=== PATIENT | male | born 1940 | race Caucasian/White ===

== ENCOUNTER → 2017-10-26 | Outpatient (CLI) | payer MEDICARE ==
[~2017-10-26] MED LIST: IOPAMIDOL 370 MG/ML 200 ML INFUS..BTL INJ ONE; SODIUM CHLORIDE 0.9% 250ML 250 ML ONE
[2017-10-26 09:34] LABS: BLOOD UREA NITROGEN 15 mg/dL (7-26); BUN/CREATININE RATIO 16 (6-25); CREATININE, SERUM 0.91 mg/dL (0.72-1.25); EST GLOMERULAR FILTRATION RATE > 60 ML/MIN (60-)
--- NOTE | 2017-10-26 13:23 | Diagnostic Imaging Report ---
PROCEDURE: CT ABDOMEN \T\ PELVIS W/WO CONTRAST TECHNIQUE: The abdomen and pelvis were scanned utilizing a multidetector helical scanner from the diaphragm to the lesser trochanter before and after the IV administration of 150 cc of Isovue 370 and the oral administration of water. Coronal and sagittal multiplanar reformations were obtained. COMPARISON: Patients [facility], DX, ABDOMEN-1VIEW (KUB), 05/03/2011, 7:41. Patients [facility], US, US RENAL, 05/03/2011, 8:28. INDICATIONS: Microscopic hematuria FINDINGS: LOWER THORAX: 3 mm pulmonary nodule in the left lower lobe (series 3, image 35). Extensive atherosclerotic calcification of the coronary arteries and to a lesser degree aortic valves and thoracic aorta. HEPATOBILIARY: Normal hepatic size and contour. No focal lesions. No biliary ductal dilation. Peripherally calcified 1.6 and 1.8 cm gallstones in the dependent portion of the bladder fundus. No wall thickening or pericholecystic fluid. SPLEEN: No splenomegaly. PANCREAS: No focal masses or ductal dilatation. ADRENALS: No adrenal nodules. KIDNEYS/URETERS: Bilateral renal vascular calcifications are noted. 0.2-0.3 cm nonobstructing calculus in the superior to mid left kidney (series 3, image 79). No other renal or any ureteral calculi. No hydronephrosis or obstruction. Symmetrical renal enhancement. Subcentimeter hypodense lesions in the left kidney (for example series 6, images 76 and 79), which are too small to characterize. The largest lesion measures approximately 4-5 mm and is hyperdense on noncontrast exam, suggesting a small hemorrhagic cyst (series 3, image 81). There is good contrast opacification of bilateral renal collecting systems, renal pelves, proximal and mid right ureter and proximal, mid, and most distal left ureter. No filling defects or strictures. Mild urothelial thickening in the midportion of the left ureter (for example series 6, images 99-105). No focal lesion or ureteral dilation is identified. No solid enhancing masses. PELVIC ORGANS/BLADDER: Bladder is unremarkable, without wall thickening, or focal lesions. Multiple pelvic phleboliths. Multiple metallic clips posterior to the inferior bladder, which may reflect prior prostatectomy. PERITONEUM / RETROPERITONEUM: No free air or fluid. LYMPH NODES: No lymphadenopathy. VESSELS: Moderate to marked atherosclerotic calcification of the abdominal aorta, iliac vessels and aortic branches. The celiac trunk, superior and inferior mesenteric, and bilateral renal arteries are patent. Portal, superior mesenteric, and splenic veins are patent. GI TRACT: No bowel dilation or evidence of obstruction. Appendix is identified, and normal in caliber. Descending and sigmoid colon diverticulosis, without diverticulitis. BONES AND SOFT TISSUES: No aggressive lytic lesions. Degenerative disc changes in the lower thoracic and lumbosacral spine. Facet hypertrophy. L5-S1 and left L4-L5. 1.6 x 1.3 cm and 0.3 cm focal sclerotic lesions in the right iliac bone (series 3, images 141 and 149-150). 1.0 cm focal sclerotic lesion in the right femoral head (series 3, image 166). 0.5 cm focal sclerotic lesion in the right acetabulum (series 3, image 155). 0.4 cm focal sclerotic lesion in the left iliac bone (series 3, image 152). These lesions have nonaggressive appearance. IMPRESSION: 1. 0.2-0.3 cm nonobstructing calculus in the superior to mid left kidney. No other renal or any ureteral calculi, hydronephrosis, or obstruction. 2. Mild urothelial thickening in the midportion of the left ureter, without focal lesion or ureteral dilation. The rest of the opacified portions of the genitourinary tract are unremarkable. Direct visualization with endoscopy would be helpful for further evaluation. 3. Multiple focal sclerotic lesions in the pelvis and right femur, as described. 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 Musa Marshall M.D. Dictated by: Musa Marshall M.D. on 10/26/2017 at 13:28 Electronically approved by: Musa Marshall M.D. on 10/26/2017 at 13:28
== END ==
LOC: CT 08:57
PROVIDERS: ATTEND Urology
DX: R31.21 Asymptomatic microscopic hematuria (principal)
CPT/HCPCS: 36415; 74178; 82565; 84520; J7050; Q9967

== ENCOUNTER → 2017-11-29 | Day surgery (SDC) | payer MEDICARE ==
[2017-11-27 11:28] LABS: BASOPHILS # (AUTO) 0.1 (0.0-0.1); BASOPHILS % 1.2 % (0.0-1.0); EOSINOPHILS # (AUTO) 0.2 (0.0-0.4); EOSINOPHILS % 3.3 % (0.0-6.0); HEMATOCRIT 43.8 % (38.2-49.6); HEMOGLOBIN 15.2 g/dL (14.0-18.0); LYMPHOCYTES # (AUTO) 1.8 (1.0-3.2); LYMPHOCYTES % 25.1 % (18.0-39.1); MEAN CORPUSCULAR HEMOGLOBIN 31.4 pg (28-32); MEAN CORPUSCULAR HGB CONC 34.7 g/dL (31-35); MEAN CORPUSCULAR VOLUME 90.5 fL (81-99); MONOCYTES # (AUTO) 0.7 (0.2-0.8); MONOCYTES % 8.9 % (4.4-11.3); NEUTROPHILS # (AUTO) 4.5 (2.1-6.9); NEUTROPHILS % 61.2 % (38.7-80.0); PLATELET COUNT 189 x10e3/uL (140-360); RED BLOOD COUNT 4.84 x10e6/uL (4.3-5.7); RED CELL DISTRIBUTION WIDTH 11.8 % (11.7-14.4)
[2017-11-27 11:42] LABS: ANION GAP 14.5 mmol/L (8-16); BLOOD UREA NITROGEN 15 mg/dL (7-26); BUN/CREATININE RATIO 14 (6-25); CALCIUM 10.2 mg/dL (8.4-10.2); CARBON DIOXIDE 30 mmol/L (22-29); CHLORIDE 100 mmol/L (98-107); EST GLOMERULAR FILTRATION RATE > 60 ML/MIN (60-); GLUCOSE 257 mg/dL (74-118); POTASSIUM 4.5 mmol/L (3.5-5.1); SODIUM 140 mmol/L (136-145)
--- NOTE | 2017-11-27 11:46 | Diagnostic Imaging Report ---
EXAMINATION: PA and lateral views of the chest. COMPARISON: None CLINICAL HISTORY: Preop bladder surgery DISCUSSION: The lungs are well-inflated. No focal airspace consolidation, pleural effusion, or pneumothorax. Postsurgical changes of the mediastinum include mediastinal surgical clips and median sternotomy wires. Tortuous thoracic aorta with atherosclerotic calcification. Normal heart size. No overt pulmonary edema. No acute osseous abnormalities. Multilevel level degenerative disc changes of the thoracic spine. Round lucent centered calcifications project over the upper abdomen on the lateral radiograph and likely reflect gallstones. IMPRESSION: Postsurgical changes of the mediastinum without acute cardiopulmonary abnormality.. Signed by: Dr. Kwaku Greer M.D. on 11/27/2017 11:43 AM
[~2017-11-29] MED LIST changes: +AMLODIPINE BESY10 MG PO; +CALCIUM; +CEFTRIAXONE SOD 1 GM VIAL ONE; +CENTRUM SILVER1 EAC3; +DEXAMETHASONE SOD PHOS INJ 4 MG/ML VIAL ONE; +DIOVAN HCT 3201 EACH; +FISH OIL 1,2001 EACH; +IOPAMIDOL 300MG/ML 50ML INFUS..BTL IV ONE; -IOPAMIDOL 370 MG/ML 200 ML INFUS..BTL INJ ONE; +LEVOTHYROXINE50 MCG PO; +LIDOCAINE HCL 2% LOCAL INJ 5 ML SDV VIAL INJ ONE; +MAGNESIUM; +METFORMIN HCL500 M2 PO; +ONDANSETRON HCL INJ 2 MG/ML VIAL ONE; +PRAVASTATIN SOD10 MG; +PROPOFOL IV EMULSION 10 MG/ML 20 ML VIAL ONE; +SEVOFLURANE INHAL SOLN 250 ML PEN BTL ONE; -SODIUM CHLORIDE 0.9% 250ML 250 ML ONE; +STOOL SOFTENER50 MG; +WARFARIN SODIUM4 MG
[2017-11-29 09:12] LABS: INR 1.08; PROTHROMBIN TIME 13.2 seconds (11.9-14.5)
[2017-11-29 09:13] LABS: PARTIAL THROMBOPLASTIN TIME 35.2 seconds (23.8-35.5)
[2017-11-29 12:35] VITALS: BP 157/89
--- OUTSIDE RECORDS SUMMARY | 2017-12-21 07:24 | XMS REPORT | Summary of Care ---
Author Author [facility] Organization 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, 3, 4 Diabetes Active mellitus(Confirmed) Diabetes(Confirmed) Resolved Hearing loss5 12/26/12 Active Hyperlipidemia6 12/26/12 Active BP (high blood Resolved pressure)(Confirmed) 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 2Data migrated from [employer] on 09/24/14. 3Data migrated from [employer] on 08/19/14. 4Data migrated from [employer] on 08/16/14. 5Data migrated from [employer] on 08/16/14. 6Data migrated from [employer] on 08/16/14. 7Data migrated from [employer] on 08/16/14. 8Data migrated from [employer] on 08/16/14. 9Data migrated from [employer] on 08/16/14. 10Data migrated from [employer] on 08/16/14. 11Data migrated from [employer] on 08/16/14. 12Data migrated from [employer] on 08/16/14. 13Data migrated from [employer] on 08/16/14. 14Data migrated from [employer] on 08/16/14. Allergies, Adverse Reactions, Alerts Substance Reaction Severity Status NKDA Active Medications pravastatin 10 mg oral tablet See Instructions, # 90 tab, Refill(s) 5, TAKE 1 TABLET BY MOUTH EVERY DAY, Pharmacy: [facility] [id number] Start Date: 07/03/17 Status: Ordered Results No data available for this section Immunizations Given and Recorded Vaccine Date Status Refusal Reason pneumococcal 23-valent vaccine 05/13/15 Given Procedures Procedure Date Related Diagnosis Body Site Status Endoscopic prostatectomy Completed Functional endoscopic sinus surgery - Completed anterior ethmoidectomy and frontal recess dissection Hemorrhoidectomy Completed Tonsillectomy Completed Triple coronary bypass Completed Social History Social History Type Response Smoking Status Former smoker; Type: Cigarettes; Previous treatment: None; Ready to change: No; Concerns about tobacco use in household: No; Exposure to Tobacco Smoke None; Cigarette Smoking Last 365 Days No; Reg Smoking Cessation Counseling No; Tobacco use per day: 1; Number of years: 30; Total pack years: 150; Started at age: 10.0; Stopped at age: 44; entered on: 06/28/17 Assessment and Plan No data available for this section
--- OUTSIDE RECORDS SUMMARY | 2017-12-21 07:24 | XMS REPORT | Summary of Care ---
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) CABG x 3 - Coronary Active artery bypass grafts x 3(Confirmed) Cancer of Active prostate(Confirmed) Coronary 12/26/12 Active 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 [...] Substance Reaction Severity Status NKDA Active Medications No data available for this section Results No data available for this section Immunizations Given and Recorded Vaccine Date Status Refusal Reason pneumococcal 23-valent vaccine 05/13/15 Given Procedures Procedure Date Related Diagnosis Body Site Endoscopic prostatectomy Functional endoscopic sinus surgery - anterior ethmoidectomy and frontal recess dissection Hemorrhoidectomy Tonsillectomy Triple coronary bypass Social History Social History Type Response Smoking Status Former smoker; Type: Cigarettes; Tobacco use per day: 1; Number of years: 30; Total pack years: 150; Started at age: 10.0; Stopped at age: 44; Previous treatment: None; Ready to change: No; Concerns about tobacco use in household: No; Exposure to Tobacco Smoke None; Cigarette Smoking Last 365 Days No; Reg Smoking Cessation Counseling No Assessment and Plan No data available for this section
--- OUTSIDE RECORDS SUMMARY | 2017-12-21 07:24 | XMS REPORT | Summary of Care ---
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 [...] No data available for this section Immunizations Vaccine Date Refusal Reason pneumococcal 23-valent vaccine 05/13/15 Procedures Procedure Date Related Diagnosis Body Site Endoscopic prostatectomy Functional endoscopic sinus surgery - anterior ethmoidectomy and frontal recess dissection Hemorrhoidectomy Tonsillectomy Triple coronary bypass Social History Social History Type Response Smoking Status Former smoker; Exposure to Tobacco Smoke None; Cigarette Smoking Last 365 Days No; Reg Smoking Cessation Counseling No Assessment and Plan No data available for this section
--- OUTSIDE RECORDS SUMMARY | 2017-12-21 07:24 | XMS REPORT | Summary of Care ---
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 [...] Alerts Substance Reaction Severity Status NKDA Active NKDA1 Active 1Data migrated from [employer] on 05/22/15. Originally documented as NKA. Medications No data available for this section [...]
--- OUTSIDE RECORDS SUMMARY | 2017-12-21 07:24 | XMS REPORT | Continuity of Care Document ---
Author Author Interface Organization Interface Address Unknown Phone Unavailable Problems Problem Status Onset Date Classification Date Reported Comments Source Bilateral inguinal hernia 07/01/2017 [facility] Diverticulosis 06/28/2017 07/01/2017 [facility] ABDOMINAL PAIN Active 2017 [facility] DX: M48.54XA=COLLAPSED VERTEBRA, NOT ELS Active 05/19/2016 [facility] Discharge Diagnosis: Acute constipation 05/05/201605/09 [facility] Discharge Diagnosis: Compression fracture of T12 vertebra 05/05/2016 05/09/2016 [facility] Discharge Diagnosis: Hypertension 05/05/2016 05/09/2016 [facility] CONSTIPATION Active 2016 [facility] M81.8 - OTHER OSTEOPOROSIS WITHOUT CUR Active 05/22/2015 CATHY [facility] 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 [facility], CATHY Allen, OPID [place] Urinary incontinence<sup>13</sup> Active 10/22/2013 Problem 09/15/2017 Data migrated from [employer] on . [facility], CATHY [place], [place] Coronary arteriosclerosis<sup>1</sup> Active 12/26/2012 Problem 09/15/2017 Data migrated from [employer] on . [facility], CATHY [place], [place] Hearing loss<sup>5</sup> Active 12/26/2012 Problem 2017 Data migrated from [employer] on 08/16/14. [facility], CATHY [place], [place] Hyperlipidemia<sup>6</sup> Active 12/26/2012 Problem 09/15 Data migrated from [employer] on 08/16/14. [facility], CATHY Allen, OPID [place] Hypertensive heart disease without congestive heart failure<sup>7</sup> Active 12/26/2012 Problem 09/15/2017 Data migrated from [employer] on 08/16/14. [facility], [facility] [place], OP[facility] [place] Hypogonadism<sup>8</sup> Active 12/26/2012 Problem 2017 Data migrated from [employer] on 08/16/14. [facility], [facility] [place], [facility] [place] Hypothyroidism<sup>9</sup> Active 12/26/2012 Problem 09/15 Data migrated from [employer] on 08/16/14. [facility], [facility] [place], OPID [place] Osteoporosis<sup>10</sup> Active 12/26/2012 Problem 2017 Data migrated from [employer] on 08/16/14. [facility], OP[facility] [place], OPID [place] Smoker<sup>12</sup> Active Problem 09/15/2017 Data migrated from [employer] on 08/16/14. [facility], [facility] [place], [facility] [place] Warfarin therapy started<sup>14</sup> Active 12/26/2012 Problem 09/15/2017 Data migrated from [employer] on . 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 Problem 09/15/2017 [facility], [facility] [place], [facility] [place] CABG x 3 - Coronary artery bypass grafts x 3 Active Problem 09/15/2017 [facility], [facility] [place], [facility] [place] Cancer of prostate Active Problem 09/15/2017 [facility], [facility] [place], [facility] [place] Diabetes mellitus Active Problem 09/15/2017 [facility], [facility] [place], [facility] [place] Diabetes Resolved Problem 09/15/2017 [facility] BP (<span ID="[id number]">Confirmed</span>) Resolved Problem 09/15/2017 [facility] Cancer Resolved Problem 09/15/2017 [facility] Obesity Active Problem 09/15/2017 [facility], MATIASRay [place], CATHY [place] Peripheral circulatory disorder associated with type 2 diabetes mellitus<sup>11 </sup> Active Problem 09/15/2017 Data migrated from [facility] on 08/16/14. [facility], CATHY [place], CATHY [place] COLLAPSED VERTEBRA, NEC, THORACIC REGION Active [facility] Medications Medication Details Route Status Patient Instructions Ordering Provider Order Date Source pravastatin 10 mg oral tablet See Instructions, # 90 tab, Refill(s) 5, TAKE 1 TABLET BY MOUTH EVERY DAY, Pharmacy: [facility] [id number] Active 07/03/2017 [facility] Saline Flush 0.9% 10 mL, Route: IVP, Drug Form: INJ, Dosing Weight 81.818, kg, PRN, PRN Line Flush, Start date: 06/28/17 12:33:00 CDT , Duration: 30 day, Stop date: 07/28/17 12:32:00 CDTNotes: (Same as: BD Posiflush) Inactive 06/28/2017 [facility] Accu-Chek Aide Plus Blood Glucose Test Strips 1 ea, MISC, TID, Use for blood glucose monitoring., # 100 ea, Not insulin dependent, Does not use insulin pump, Last DM eval date 06/28/17, 11 Refill(s) Active 06/28/2017 [facility] Lactulose 667 MG/ML Oral Solution 10 gm=15 mL, PO, Daily, PRN constipation, X 5 day, # 75 mL, 0 Refill(s) Active 05/06/2016 [facility] POLYETHYLENE GLYCOL 3350 142 MG/ML Oral Solution [Miralax] 17 gm, PO, Bedtime, PRN Constipation, Dissolve in 8 oz. of water, X 10 day , # 255 gm, 1 Refill(s) Active 05/06/2016 [facility] POLYETHYLENE GLYCOL 3350 142 MG/ML Oral Solution [Miralax] 17 gm, PO, Bedtime, Dissolve in 8 oz. of water, X 7 day, # 1 ea, 1 Refill( s), Pharmacy: [facility] [id number] Active 05/06/2016 [facility] Allergies, Adverse Reactions, Alerts Substance Category Reaction Severity Reaction type Status Date Reported Comments Source Immunizations Immunization Date Given Site Status Last Updated Comments Source diphtheria/pertussis, acel/tetanus adult<sup>1</sup> 09/12/2017 Left deltoid completed [facility] Result Comment : PATIENT WAITED 15 MINUTES AND HAD NO REACTION. [facility] pneumococcal 23-valent vaccine 05/13/2015 Left Deltoid completed [place], CATHY [place], CATHY [place] Results Order Name Results Value Reference Range Date Interpretation Comments Source Bone Density [employer] MA Bone Density [employer] MA MALE BONE DENSITY ASSESSMENT: 10/11/2017 CLINICAL DATA: M81.0 Age related osteoporosis. Osteoporosis/M81.0 FINDINGS: Bone density evaluation was performed 10/11/2017 on the right femur neck using a Hologic unit. The BMD average for the exam is 0.763 g/cm2. The T-score is - 1.20 and the Z-score is 0.20. This matches the World Health Organization's criteria for osteopenia and places the patient at a medium risk for fracture. An additional bone density evaluation was performed 10/11/2017 on the left femur neck using a Hologic unit. The BMD average for the exam is 0.718 g/cm2. The T-score is -1.60 and the Z-score is -0.10. This matches the World Health Organization's criteria for osteopenia and places the patient at a medium risk for fracture. An additional bone density evaluation was performed 10/11/2017 on the right total femur area using a Hologic unit. The BMD average for the exam is 0.905 g/ cm2. The T-score is -0.80 and the Z-score is 0.10. This matches the World Health Organization's criteria for normal bone density and places the patient within normal limits of fracture risk. An additional bone density evaluation was performed 10/11/2017 on the left total femur area using a Hologic unit. The BMD average for the exam is 0.957 g/ cm2. The T-score is -0.50 and the Z-score is 0.40. This matches the World Health Organization's criteria for normal bone density and places the patient within normal limits of fracture risk. An additional bone density evaluation was performed 10/11/2017 on the AP L1-L4 region of spine using a Hologic unit. The BMD average for the exam is 0.920 g/ cm2. The T-score is -1.60 and the Z-score is -0.40. This matches the World Health Organization's criteria for osteopenia and places the patient at a medium risk for fracture. IMPRESSION: OSTEOPENIA Patient is at medium risk for fracture. This exam was interpreted at [id number] for KAITY Allen 15. Rommel Bolton M.D. cm/penrad:10/11/2017 11:22:32 Silverer(s): Maryann Valiente [facility] 10/11/2017 - - Read by: Kai Beaver MD Dictated Date/time: 10/11/17 11:22 Electronically Signed by: Kai Beaver MD 10/11/17 11 :22 FINAL REPORT [place]Ray [place] URINE AND STOOL UA Sq Epi None Seen 06/28/2017 [facility] URINE AND STOOL UA Urobilinogen <=1.0 mg/dL 0.1 - 1.0 [facility] URINE AND STOOL UA Bacteria Occasional /HPF None Seen /HPF 06/28/2017 [facility] URINE AND STOOL UA Bili Negative *NA* (06/28/17 1:56 PM) Negative 06/28/2017 [facility] URINE AND STOOL UA Ketones Negative mg/dL Negative mg/dL 06/28/2017 [facility] URINE AND STOOL UA Glucose 150 mg/dL Negative mg/dL 01/2018 [facility] URINE AND STOOL UA RBC 5 / HPF 0 - 2 06/28/2017 [facility] URINE AND STOOL UA WBC 1 / HPF 0 - 5 06/28/2017 [facility] URINE AND STOOL UA Leuk Est Negative (06/28/17 1:56 PM) Negative 06/28/2017 [facility] URINE AND STOOL UA Nitrite Negative (06/28/17 1:56 PM) Negative 06/28/2017 [facility] URINE AND STOOL UA Blood Small *ABN* (06/28/17 1:56 PM) Negative 06/28/2017 [facility] URINE AND STOOL UA Protein Negative mg/dL Negative mg/dL 06/28/2017 [facility] URINE AND STOOL UA pH 6.0 5.0 - 8.0 06/28/2017 [facility] URINE AND STOOL UA Spec Grav 1.012 <=1.030 06/28/2017 [facility] URINE AND STOOL UA Turbidity Clear (06/28/17 1:56 PM) Clear 01/2018 [facility] URINE AND STOOL UA Color Yellow *NA* (06/28/17 1:56 PM) Yellow [facility] CHEM PANEL eGFR 71 mL/min/ 1.73m2 06/28/2017 Result Comment: The eGFR is calculated using the CKD-EPI formula. In most young, healthy individuals the eGFR will be >90 mL/min/1.73m2. The eGFR declines with age. An eGFR of 60-89 may be normal in some populations, particularly the elderly, for whom the CKD- EPI formula has not been extensively validated. Use of the eGFR is not recommended in the following populations: Individuals with unstable creatinine concentrations, including patients and those with serious co-morbid conditions. Patients with extremes in muscle mass or diet. The data above are obtained from the National Kidney Disease Education Program ( NKDEP) which additionally recommends that when the eGFR is used in patients with extremes of body mass index for purposes of drug dosing, the eGFR should be multiplied by the estimated BMI. [facility] CHEM PANEL Alk Phos 61 unit/ L 39 - 136 06/28/2017 [facility] CHEM PANEL AST 13 unit/L 0 - 37 06/28/2017 [facility] CHEM PANEL Calcium Lvl 9.8 mg /dL 8.5 - 10.5 06/28/2017 [facility] CHEM PANEL Albumin Lvl 3.6 g/ dL 3.5 - 5.0 06/28/2017 [facility] CHEM PANEL Total Protein 7.5 g/dL 6.4 - 8.4 06/28/2017 [facility] CHEM PANEL ALT 21 unit/L 0 - 65 06/28/2017 [facility] CHEM PANEL Bili Total 0.6 mg/ dL 0.2 - 1.3 06/28/2017 [facility] CHEM PANEL CO2 32 meq/L 24 - 32 06/28/2017 [facility] CHEM PANEL Chloride Lvl 99 meq/L 95 - 109 06/28/2017 [facility] CHEM PANEL Potassium Lvl 4.4 meq/L 3.5 - 5.1 06/28/2017 [facility] CHEM PANEL Sodium Lvl 139 meq /L 135 - 145 06/28/2017 [facility] CHEM PANEL Creatinine Lvl 1.01 mg/dL 0.50 - 1.40 2017 [facility] CHEM PANEL Glucose Lvl 225 mg /dL 70 - 99 06/28/2017 [facility] CHEM PANEL BUN 14 mg/dL 7 - 22 06/28/2017 [facility] CHEM PANEL AGAP 12.4 meq/L 10.0 - 20.0 06/28/2017 [facility] CHEM PANEL A/G Ratio 0.9 0.7 - 1.6 06/28/2017 [facility] CHEM PANEL Globulin 3.9 g/dL 2.7 - 4.2 06/28/2017 [facility] CHEM PANEL B/C Ratio 14 6 - 25 06/28/2017 [facility] CHEM PANEL Magnesium Lvl 2.0 mg/dL 1.8 - 2.4 06/28/2017 [facility] CHEM PANEL Lipase Lvl 141 unit/L 73 - 393 06/28/2017 [facility] CHEM PANEL Phosphorus 3.1 mg/ dL 2.5 - 4.5 06/28/2017 [facility] HEMATOLOGY Basophils 1.0 % 0.0 - 1.0 06/28/2017 [facility] HEMATOLOGY Segs-Bands # 3.9 K /CMM 1.5 - 8.1 06/28/2017 [facility] HEMATOLOGY Basophils # 0.1 K/ CMM 0.0 - 0.2 06/28/2017 [facility] HEMATOLOGY Lymphocytes # 1.3 K/CMM 1.0 - 5.5 06/28/2017 [facility] HEMATOLOGY Eosinophils # 0.2 K/CMM 0.0 - 0.5 06/28/2017 [facility] HEMATOLOGY Monocytes # 1.2 K/ CMM 0.0 - 0.8 06/28/2017 [facility] HEMATOLOGY Lymphocytes 20.0 % 20.0 - 40.0 06/28/2017 [facility] HEMATOLOGY Monocytes 18.4 % 2.0 - 12.0 06/28/2017 [facility] HEMATOLOGY Eosinophils 2.9 % 0.0 - 4.0 06/28/2017 [facility] HEMATOLOGY Segs 57.7 % 45.0 - 75.0 06/28/2017 [facility] HEMATOLOGY Platelet 198 K/ CMM 133 - 450 06/28/2017 [facility] HEMATOLOGY MPV 9.2 fL 7.4 - 10.4 06/28/2017 [facility] HEMATOLOGY WBC 6.7 K/CMM 3.7 - 10.4 06/28/2017 [facility] HEMATOLOGY MCHC 34.3 g/dL 32.0 - 36.0 06/28/2017 [facility] HEMATOLOGY RDW 12.6 % 11.5 - 14.5 06/28/2017 [facility] MCV 91.5 fL 80.0 - 94.0 06/28/2017 [facility] RBC 4.80 M/CMM 4.70 - 6.10 06/28/2017 [facility] Hgb 15.1 g/dL 14.0 - 18.0 06/28/2017 [facility] Hct 43.9 % 42.0 - 54.0 06/28/2017 [facility] MCH 31.4 pg 27.0 - 31.0 06/28/2017 [facility] Chest 1view DX Chest 1view DX Clinical Indication: - evaluate right lung infiltrate? asymptomatic; Comparison: 08/03/2010 Technique: X-ray chest frontal projection FINDINGS: There is no consolidation, pleural effusion or pneumothorax. The heart is normal in size. The mediastinum and anthony are unremarkable. The patient is status post median sternotomy. IMPRESSION: No chest radiographic evidence of acute cardiopulmonary disease. SL: [place] 06/28/2017 - - Read by: Vibha Jaime MD Dictated Date/time: 06/28/17 15:27 Electronically Signed by: Vibha Jaime MD 06/28/17 15 :28 FINAL REPORT [facility] Abdomen/Pelvis w IV contrast CT Abdomen/Pelvis w IV contrast CT Clinical Indication: - LLQ pain, evaluate for diverticulitis, mild tenderness, hx of hernia; Comparison: None Technique: Multi-detector CT imaging of the abdomen and pelvis is performed with contrast. Coronal and sagittal reconstructions were obtained. IV CONTRAST: 100 mL of Omnipaque GI CONTRAST: No oral contrast was administered which can limit assessment. FINDINGS: CT ABDOMEN : LUNG BASES: Right lower lobe infiltrates noted ABDOMINAL SOLID ORGANS: The liver shows no focal mass lesions. Normal appearing pancreas with no inflammatory changes. Normal adrenal glands. No mass lesions are seen The pancreas shows no focal mass or inflammatory changes. No ductal dilitation. The spleen is intact. The kidneys show normal size contour and axis. Multiple gallstones are seen STOMACH AND BOWEL: The stomach is unremarkable. Small bowel loops visualized are normal caliber. The colon in the abdomen are unremarkable. PERITONEUM AND RETROPERITONEUM: There is no abdominal lymphadenopathy. There is no pneumoperitoneum or abdominal ascites. There are no retroperitoneal abnormalities. VASCULAR STRUCTURES: The abdominal aorta is unremarkable without aneurysm. The inferior vena cava is unremarkable. The mesenteric vessels and portal veinous structures are grossly patent. OSSEOUS STRUCTURES: There are no significant osseous abnormalities seen. ------- CT PELVIS : BOWEL: Rectosigmoid colon is abnormal with multiple diverticula along the sigmoid colon PERITONEAL AND EXTRAPERITONEAL REGIONS: There is no pelvic free fluid or lymphadenopathy. The inguinal regions are unremarkable. BLADDER / : The bladder is unremarkable. Prostate has been removed. Bilateral fat-containing inguinal hernias are seen OSSEOUS STRUCTURES: There are no significant osseous abnormalities seen. ----- IMPRESSION: 1. No acute abdominal or pelvic findings. 2. Right lower lobe pulmonary infiltrates 3. Colonic diverticulosis 4. Cholelithiasis 5. 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 Coronal and sagittal reconstructions were generated and reviewed. DLP: 450 mGy-cm FINDINGS: Alignment: Normal lordosis. No significant scoliosis. Soft tissues: Small hiatal hernia. Mild paraspinal edema/stranding surrounding the T12 vertebral body. Punctate nonobstructive bilateral renal calculi. Vertebral bodies: Moderate compression deformity of the T12 vertebral body ( approximately 50% loss in height). The degree of height loss has slightly increased when compared to 05/05/2016. Additionally, there is increased sclerosis of the T12 vertebral body compatible with healing. No significant retropulsion of fracture fragments or fracture extension into the posterior elements. Disc spaces: T12-L1: Mild disc bulge and posterior endplate spurring. No significant spinal canal or foraminal narrowing. L1-L2-: Small calcified posterior disc bulge. No significant spinal canal or foraminal narrowing. L2-L3: Mild disc bulge. No significant spinal canal or foraminal narrowing. L3-L4: Mild disc bulge and mild bilateral facet arthropathy. No significant spinal canal or foraminal narrowing. L4-L5: Mild disc bulge and bilateral facet arthropathy (moderate on the left and mild on the right). No significant spinal canal or foraminal narrowing. L5-S1: Mild disc bulge and bilateral facet arthropathy (moderate on the right and mild on the left). No significant spinal canal or foraminal narrowing. IMPRESSION: Subacute compression fracture of the T12 vertebral body (approximately 50% loss of height). Slightly increased loss in height and evidence of interval healing when compared to 05/05/2016. Mild degenerative changes of the lumbar spine as described. 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 [place]ul COMPARISON: CT lumbar spine on 05/23/2016 and 05/05/2016 TECHNIQUE: Multiplanar T1, T2, and STIR weighted MR imaging of the lumbar spine without IV contrast. FINDINGS: Alignment: Normal lordosis. No significant scoliosis. Soft tissues: Mild paraspinal edema/stranding surrounding the T12 vertebral body. Lower thoracic spinal cord: Normal in signal and morphology. The conus medullaris terminates at the level of L1-L2. Cauda equina: No masses or arachnoiditis. Vertebral bodies: Moderate compression deformity of the T12 vertebral body ( approximately 50% loss in height). The degree of height loss has slightly increased when compared to 05/05/2016. The T12 vertebral body demonstrates diffuse marrow edema signal. No significant retropulsion of fracture fragments or fracture extension into the posterior elements. Disc spaces: T12-L1: Mild disc bulge. No significant spinal canal or foraminal narrowing. L1-L2: Mild disc bulge. No significant spinal canal or foraminal narrowing. L2-L3: Mild disc bulge. No significant spinal canal or foraminal narrowing. L3-L4: Mild disc bulge and mild bilateral facet arthropathy. No significant spinal canal or foraminal narrowing. L4-L5: Mild disc desiccation. Mild disc bulge and bilateral facet arthropathy ( moderate on the left and mild on the right). No significant spinal canal or foraminal narrowing. L5-S1: Mild disc desiccation. Mild disc bulge and bilateral facet arthropathy ( moderate on the right and mild on the left). No significant spinal canal or foraminal narrowing. IMPRESSION: Subacute compression fracture of the T12 vertebral body (approximately 50% loss of height). Slightly increased loss in height when compared to 05/05/2016. Mild degenerative changes of the lumbar spine as described. SL: [id number] 05/23/2016 - - Read by: Jessica Barragan MD Dictated Date/time: 05/24/16 09:09 Electronically Signed by: Jessica Barragan MD 05/24/16 09 :17 FINAL REPORT [facility] URINE AND STOOL UA Blood Small *ABN* (05/05/16 10:57 PM) Negative 05/06/2016 [facility] URINE AND STOOL UA Nitrite Negative (05/05/16 10:57 PM) Negative 05/06/2016 [facility] URINE AND STOOL UA Glucose Negative mg/dL Negative mg/dL 05/06/2016 [facility] URINE AND STOOL UA WBC 1 / HPF 0 - 5 05/06/2016 [facility] URINE AND STOOL UA RBC 1 / HPF 0 - 2 05/06/2016 [facility] URINE AND STOOL UA Sq Epi None Seen 05/06/2016 [facility] URINE AND STOOL UA Leuk Est Negative (05/05/16 10:57 PM) Negative 05/06/2016 [facility] URINE AND STOOL UA Turbidity Clear (05/05/16 10:57 PM) Clear [facility] URINE AND STOOL UA Spec Grav 1.008 <=1.030 05/06/2016 [facility] URINE AND STOOL UA pH 7.0 5.0 - 8.0 05/06/2016 [facility] URINE AND STOOL UA Protein Negative mg/dL Negative mg/dL 05/06/2016 [facility] URINE AND STOOL UA Urobilinogen <=1.0 mg/dL 0.1 - 1.0 [facility] URINE AND STOOL UA Color Ltyellow 05/06/2016 [facility] URINE AND STOOL UA Ketones Negative mg/dL Negative mg/dL 05/06/2016 [facility] URINE AND STOOL UA Bili Negative *NA* (05/05/16 10:57 PM) Negative 05/06/2016 [facility] CHEM PANEL eGFR 65 mL/min/ 1.73m2 05/05/2016 Result Comment: The eGFR is calculated using the CKD-EPI formula. In most young, healthy individuals the eGFR will be >90 mL/min/1.73m2. The eGFR declines with age. An eGFR of 60-89 may be normal in some populations, particularly the elderly, for whom the CKD- EPI formula has not been extensively validated. Use of the eGFR is not recommended in the following populations: Individuals with unstable creatinine concentrations, including patients and those with serious co-morbid conditions. Patients with extremes in muscle mass or diet. The data above are obtained from the National Kidney Disease Education Program ( NKDEP) which additionally recommends that when the eGFR is used in patients with extremes of body mass index for purposes of drug dosing, the eGFR should be multiplied by the estimated BMI. [facility] CHEM PANEL Bili Total 0.4 mg/ dL 0.2 - 1.3 05/05/2016 [facility] CHEM PANEL Alk Phos 74 unit/ L 39 - 136 05/05/2016 [facility] CHEM PANEL AST 18 unit/L 0 - 37 05/05/2016 [facility] CHEM PANEL ALT 32 unit/L 0 - 65 05/05/2016 [facility] CHEM PANEL Calcium Lvl 9.4 mg /dL 8.5 - 10.5 05/05/2016 [facility] CHEM PANEL Total Protein 7.8 g/dL 6.4 - 8.4 05/05/2016 [facility] CHEM PANEL Albumin Lvl 4.3 g/ dL 3.5 - 5.0 05/05/2016 [facility] CHEM PANEL Glucose Lvl 109 mg /dL 70 - 99 05/05/2016 [facility] CHEM PANEL Chloride Lvl 96 meq/L 95 - 109 05/05/2016 [facility] CHEM PANEL CO2 32 meq/L 24 - 32 05/05/2016 [facility] CHEM PANEL Potassium Lvl 4.0 meq/L 3.5 - 5.1 05/05/2016 [facility] CHEM PANEL Creatinine Lvl 1.10 mg/dL 0.50 - 1.40 2016 [facility] CHEM PANEL Sodium Lvl 136 meq /L 135 - 145 05/05/2016 [facility] CHEM PANEL BUN 18 mg/dL 7 - 22 05/05/2016 [facility] CHEM PANEL B/C Ratio 16 6 - 25 05/05/2016 [facility] CHEM PANEL Globulin 3.5 g/dL 2.7 - 4.2 05/05/2016 [facility] CHEM PANEL A/G Ratio 1.2 0.7 - 1.6 05/05/2016 [facility] CHEM PANEL AGAP 12.0 meq/L 10.0 - 20.0 05/05/2016 [facility] HEMATOLOGY MCV 88.3 fL 80.0 - 94.0 05/05/2016 [facility] HEMATOLOGY Platelet 266 K/ CMM 133 - 450 05/05/2016 [facility] Hct 42.8 % 42.0 - 54.0 05/05/2016 [facility] RDW 12.9 % 11.5 - 14.5 05/05/2016 [facility] MCHC 35.1 g/dL 32.0 - 36.0 05/05/2016 [facility] MCH 30.9 pg 27.0 - 31.0 05/05/2016 [facility] MPV 8.0 fL 7.4 - 10.4 05/05/2016 [facility] HEMATOLOGY WBC 7.7 K/CMM 3.7 - 10.4 05/05/2016 [facility] Hgb 15.0 g/dL 14.0 - 18.0 05/05/2016 [facility] RBC 4.85 M/CMM 4.70 - 6.10 05/05/2016 [facility] Lymphocytes 27.2 % 20.0 - 40.0 05/05/2016 [facility] Segs 57.8 % 45.0 - 75.0 05/05/2016 [facility] HEMATOLOGY Eosinophils # 0.4 K/CMM 0.0 - 0.5 05/05/2016 [facility] HEMATOLOGY Monocytes # 0.7 K/ CMM 0.0 - 0.8 05/05/2016 [facility] HEMATOLOGY Basophils # 0.1 K/ CMM 0.0 - 0.2 05/05/2016 [facility] HEMATOLOGY Basophils 1.1 % 0.0 - 1.0 05/05/2016 [facility] HEMATOLOGY Eosinophils 4.6 % 0.0 - 4.0 05/05/2016 [facility] HEMATOLOGY Monocytes 9.3 % 2.0 - 12.0 05/05/2016 [facility] HEMATOLOGY Segs-Bands # 4.4 K /CMM 1.5 - 8.1 05/05/2016 [facility] HEMATOLOGY Lymphocytes # 2.1 K/CMM 1.0 - 5.5 05/05/2016 [facility] Abdomen/Pelvis w IV contrast CT Abdomen/Pelvis w IV contrast CT Patient Name: FRANCE SCHAEFER : 1940; Age: 75 years y/o Male MR: [id number] Study: Abdomen/Pelvis w IV contrast CT 05/05/2016 7:45 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 Pt states lower back pain and is slow to amblulate. Pt is very tender to palpation on lower lumbar and states lower abdominal pain; [address] dose DLP 1942.45 mGy-cm Comparison: None TECHNIQUE: Helical imaging was performed from the diaphragm through the symphysis with multiplanar reformations obtained after intravenous administration of 100 mL of Omnipaque. FINDINGS: LOWER CHEST: The lung bases are clear without significant pleural effusion bilaterally. Cardiomegaly. Prominent coronary artery calcifications. No pericardial effusion. No pleural effusion. SOLID ORGANS: No focal liver or splenic abnormality. Kidneys are unremarkable bilaterally. No pelvocaliectasis or ureterectasis bilaterally. The adrenals, pancreas are unremarkable. Cholelithiasis. No gallbladder wall thickening. No biliary ductal dilatation. RETROPERITONEUM: No abdominal or pelvic adenopathy. Atherosclerotic calcification within the abdominal aorta and iliac vessels, without aneurysm. ( A 3 cm infrarenal aortic aneurysm was reported on the lumbar spine CT, today. No such aneurysm is actually confirmed on the abdomen and pelvis CT study.) PELVIS: No pelvic mass. Bladder is unremarkable. Suspect previous prostatectomy. Numerous surgical clips present. No pelvic mass or adenopathy is evident. No pathologic pelvic fluid. Small right and moderate left fat containing inguinal hernias. BOWEL: No bowel obstruction. Large colonic and rectal stool suggesting constipation. Colonic diverticulosis without evidence for active diverticulitis or colitis. PERITONEUM: No free intraperitoneal air. No abnormal fluid collection identified in the abdomen or pelvis. MUSCULOSKELETAL: T12 inferior endplate mild wedge compression deformity which appears to be acute or subacute. There is less than 2 mm posterior displacement of the posterior wall of T12 vertebra. Stellate sclerotic lesion within the right iliac bone measuring 12 x 20 mm. Similar 9 mm lesion within the right femoral head. 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 No acute gastrointestinal findings, otherwise. Cholelithiasis without acute biliary findings. T12 acute or subacute nondisplaced wedge compression fracture. Sclerotic bone lesions in the right iliac and proximal femur appears stable since 07/14/2006, and are thus likely benign bone islands. No additional bone lesion of significance is appreciated. 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 Also notes inability to defecate since fall. States is passing flatus. CT Radiation Dose DLP 672.7 mGy-cm COMPARISON: Plain films 04/28/2016. TECHNIQUE: Sequential trans-axial images were obtained with a multi-detector helical CT. Coronal and sagittal reconstructions were obtained. FINDINGS: ALIGNMENT AND GENERAL ASSESSMENT: There are 5 nonrib-bearing lumbar vertebral segments. There is normal alignment of the lumbar spine. The anterior and posterior paraspinal soft tissues are normal. There are no fractures or subluxations of the lumbar spine. There is acute to subacute anterior compression of the T12 vertebral body with 25-50% loss of height. There are no pars interarticularis defects and no spondylolisthesis. The facet joints are well aligned. DISC SPACES AND SOFT TISSUES: MRI has higher sensitivity and specificity for disc and soft tissue disease. T12-L1: The disc is normal. The facet joints appear normal. There is no central or foraminal stenosis. L1-L2: The disc is normal. The facet joints appear normal. There is no central or foraminal stenosis. L2-L3: Small broad-based disc bulge. The facet joints appear normal. Minimal bilateral foraminal stenosis. L3-L4: Minimal disc bulging. Minimal facet arthritic change. There is no central or foraminal stenosis. L4-L5: Small broad-based disc bulge. Mild facet arthritic change. No central stenosis. Mild bilateral foraminal stenosis. L5-S1: The disc is normal. The facet joints appear normal. There is no central or foraminal stenosis. If there is further concern, CT myelogram or MRI of the lumbar spine may be performed for complete assessment. Infrarenal 3 cm aortic aneurysm. Left renal stones incompletely evaluated. IMPRESSION: 1. T12 compression fracture with 25-50% loss of height. 2. Disc bulging with foraminal stenosis and facet arthritic change as described above. 3. Infrarenal aortic aneurysm. 4. Left nephrolithiasis incompletely evaluated. SL: PAUL 05/05/2016 - - Read by: Carter Mullins MD Dictated Date/time: 05/05/16 17:17 Electronically Signed by: Carter Mullins MD 05/05/16 17 :33 FINAL REPORT [facility] Spine lumbar 2 or 3 views DX Spine lumbar 2 or 3 views DX REASON FOR EXAM: M54.5. COMPARISON: None. FINDINGS: AP and lateral views of the lumbar spine. 3 images are submitted. There are 5 lumbar vertebral bodies. The lumbar vertebral bodies are normally aligned. There is spondylosis of the lumbar spine and visualized lower thoracic spine with multilevel anterior and lateral marginal osteophytes. There is mild anterior wedging of the T11 and T12 vertebral bodies. There is no significant compression deformity. There is mild posterior disc space narrowing from T11- T12 through L4-L5. There is facet arthropathy at L4-L5 and L5-S1. The right sacroiliac joint is unremarkable. There is mild to moderate segmental sclerosis of the mid to inferior left sacroiliac joint. There are indeterminate sclerotic lesions: 2 cm in the marrow of the inferior right ilium and 1 cm in the marrow of the right femoral head. There are degenerative changes of the pubic symphysis. An 8 mm cyst is suspected in the marrow of the superolateral left acetabulum. There are multiple surgical clips in the pelvis. There are calcified pelvic phleboliths. There are severe aortoiliac calcifications. There is a 2 x 1.1 cm ringlike calcification in the left upper abdomen concerning for a splenic artery aneurysm. IMPRESSION: 1. Mild anterior wedging of T11 and T12. 2. Degenerative changes of the lumbar spine and visualized lower thoracic spine as described above. 3. Degenerative changes of the left sacroiliac joint and pubic symphysis. 4. Indeterminate sclerotic lesions in the marrow of the right ilium and right femoral head. Further evaluation may be obtained with a whole-body bone scan. 5. Aortoiliac calcifications. 6. Possible splenic artery aneurysm. Further evaluation may be obtained with an abdomen CT. SL: 15 04/28/2016 - - Read by: Desmond Varner MD Dictated Date/time: 04/28/16 15:30 Electronically Signed by: Desmond Varner MD 04/28/16 15 :46 FINAL REPORT [facility] Scrotal/Testicle w Doppler US Scrotal/Testicle w Doppler US Study: Scrotal/Testicle w Doppler US Clinical Indication: LT SIDE PAIN Comparison: None TECHNIQUE: Sonographic evaluation of the scrotum and testes was performed using high resolution B-mode imaging as well as pulse and color Doppler imaging. FINDINGS: TESTES: The right testicle measures 4 x 2.5 x 2.9 cm. The left testicle measures 3.6 x 2.2 x 2.7 cm. There is normal bilateral testicular contour and morphology. 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 No microlithiasis is seen. A 5 mm right-sided tunica albuginea cyst is seen. The Doppler images of the testicles show normal blood flow. EPIDIDYMIDES: Right epididymis is unremarkable. Anechoic 3.6 x 3.3 x 2.9 mm cyst in the left epididymal tail is seen. The right epididymal head measures 7.4 x 4.4 x 7 mm. The left epididymal head measures 9.8 x 5 x 8.4 mm. SCROTUM: Small right hydrocele is seen. There is no evidence of varicoceles. There is no scrotal edema. Incidental note is made of a small, fat-containing right inguinal hernia. No left-sided inguinal hernia is seen. IMPRESSION: 1. Small, fat-containing right inguinal hernia. 2. 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 3. 5 mm right-sided tunica albuginea cyst. 4. 3.6 mm cyst in the left epididymal tail. 5. Small right hydrocele. SL: [id number] 08/06/2015 - - Read by: All Campbell MD Dictated Date/time: 08/06/15 10:32 Electronically Signed by: All Campbell MD 08/06/15 10 :36 FINAL REPORT [facility] [place] Bone Density [employer] MA Bone Density [employer] MA - Bone Density [employer] MA MALE BONE DENSITY EVALUATION: 05/26/2015 RISK FACTORS: race. COMPARISON: 01/03/2013 Left total femur area using a Hologic unit from [facility] with reported normal fracture risk, BMD of 0.913g/cm2 and T-score of - 0.80. 01/03/2013 Left femur neck using a Hologic unit from [facility] with reported medium fracture risk, BMD of 0.774g/cm2, T-score of - 1.10 and Z-score of 0.10. 01/03/2013 AP L1-L4 region of spine using a Hologic unit from [facility] with reported high fracture risk, BMD of 0.809g/cm2, T-score of -2.60 and Z-score of -1.60. FINDINGS: Bone density evaluation was performed 05/26/2015 on the AP L1-L4 region of spine using a Hologic unit. The BMD average for the exam is 0.874 g/cm2. The T- score is -2.00 and the Z-score is -0.90. Since the previous similar exam of , there has been a +0.065 or +8.0% change in the BMD value which represents no significant interval change in bone density. This matches the World Health Organization's criteria for osteopenia and places the patient at a medium risk for fracture. An additional bone density evaluation was performed 05/26/2015 on the right femur neck using a Hologic unit. The BMD average for the exam is 0.768 g/cm2. The T-score is -1.20 and the Z-score is 0.20. This matches the World Health Organization's criteria for osteopenia and places the patient at a medium risk for fracture. An additional bone density evaluation was performed 05/26/2015 on the right total femur area using a Hologic unit. The BMD average for the exam is 0.865 g/ cm2. The T-score is -1.10 and the Z-score is -0.30. This matches the World Health Organization's criteria for osteopenia and places the patient at a medium risk for fracture. An additional bone density evaluation was performed 05/26/2015 on the left femur neck using a Hologic unit. The BMD average for the exam is 0.796 g/cm2. The T-score is -1.00 and the Z-score is 0.40. Since the previous similar exam of 01/03/2013, there has been a +0.022 or +2.8% change in the BMD value which represents no significant interval change in bone density. This matches the World Health Organization's criteria for normal bone density and places the patient within normal limits of fracture risk. An additional bone density evaluation was performed 05/26/2015 on the left total femur area using a Hologic unit. The BMD average for the exam is 0.926 g/ cm2. The T-score is -0.70 and the Z-score is 0.10. Since the previous similar exam of 01/03/2013, there has been a +0.013 or +1.4% change in the BMD value which represents no significant interval change in bone density. This matches the World Health Organization's criteria for normal bone density and places the patient within normal limits of fracture risk. IMPRESSION: OSTEOPENIA Patient is at medium risk for fracture. This exam was dictated and interpreted by [id number] for KAITY Del Toro 15. Rommel Bolton M.D., cm/kathrin:05/29/2015 09:50:26 Silverer: Santhosh Guerrero 05/26/2015 - - Read by: Kai Beaver MD Dictated Date/time: 05/29/15 09:50 Electronically Signed by: Kai Beaver MD 05/29/15 09 :50 FINAL REPORT [facility] Elbow 2 views DX Elbow 2 views DX Right elbow AP and lateral , Oct 27, 2014 01:03:00 PM HISTORY: Right elbow pain COMPARISON: None FINDINGS: No evidence for acute fracture. Real head is intact and located. Negative for joint effusion. There is however marked soft tissue swelling along the dorsum of the elbow. Vascular calcifications. IMPRESSION: Soft tissue swelling. No acute osseous abnormality. SL: 03 10/27/2014 - - Read by: Chico Amado MD Dictated Date/time: 10/27/14 13:12 Electronically Signed by: Chico Amado 10/27/14 13 :13 FINAL REPORT [facility] Vital Signs Vital Sign Value Date Comments Source Systolic (mm Hg) 144 [facility] Diastolic (mm Hg) 73 2017 [facility] Temperature Oral (F) 98.2 F 09/12/2017 [facility] Heart Rate 62 09/12/2017 [facility] Weight 85.455 09/12/2017 [facility] BMI Calculated 28.65 2017 [facility] Height 172.72 cm 09/12/2017 [facility] Temperature Oral (F) 97.4 F 06/28/2017 [facility] Systolic (mm Hg) 164 2017 [facility] Diastolic (mm Hg) 82 2017 [facility] Respitory Rate 15 2017 [facility] Systolic (mm Hg) 161 2017 [facility] Diastolic (mm Hg) 83 2017 [facility] Respitory Rate 12 2017 [facility] Systolic (mm Hg) 147 2017 [facility] Diastolic (mm Hg) 81 2017 [facility] Respitory Rate 23 2017 [facility] Weight 81.818 06/28/2017 [facility] Height 172.72 cm 06/28/2017 [facility] BMI Calculated 27.43 2017 [facility] Temperature Oral (F) 97.9 F 06/28/2017 [facility] Heart Rate 66 06/28/2017 [facility] Systolic (mm Hg) 134 2017 [facility] Diastolic (mm Hg) 80 2017 [facility] Heart Rate 64 06/28/2017 [facility] Temperature Oral (F) 98.0 F 06/28/2017 [facility] BMI Calculated 28.67 2017 [facility] Weight 85.54 06/28/2017 [facility] Height 172.72 cm 06/28/2017 [facility] Heart Rate 70 05/06/2016 [facility] Respitory Rate 20 2016 [facility] Systolic (mm Hg) 147 2016 [facility] Diastolic (mm Hg) 82 2016 [facility] Temperature Oral (F) 98.2 F 05/06/2016 [facility] Systolic (mm Hg) 160 2016 [facility] Diastolic (mm Hg) 77 2016 [facility] Temperature Oral (F) 98.0 F 05/06/2016 [facility] Heart Rate 68 05/06/2016 [facility] Respitory Rate 20 2016 [facility] Systolic (mm Hg) 197 2016 [facility] Diastolic (mm Hg) 101 2016 [facility] Heart Rate 64 05/06/2016 [facility] Respitory Rate 20 2016 [facility] Temperature Oral (F) 98.0 F 05/06/2016 [facility] Height 172.72 cm 05/05/2016 [facility] BMI Calculated 28.04 2016 [facility] Weight 83.636 05/05/2016 [facility] Encounters Location Location Details Encounter Type Encounter Number Reason For Visit Attending Provider ADM Date DC Date Status Source Outpatient [id number] FERNIE THOMSON 10/27/2014 Active [facility] Outpatient [id number] ALEXA LAUREN-GOR 11/10/2014 Active [facility] Outpatient [id number] ALEXA LAUREN-SERGO 05/13/2015 Active [facility] [place] [facility] [id number] Alexa Lauren-Gor 05/26/2015 05/27/2015 [facility] [place] Outpatient [id number] ALEXA LAUREN-GOR 08/05/2015 Active [facility] [place] [facility] [id number] Alexa Lauren-Gor 08/06/2015 08/07/2015 [facility] [place] Outpatient [id number] ALEXA LAUREN-GOR 11/11/2015 Active [facility] Outpatient [id number] BOBBY FAGAN 01/27/2016 Active [facility] Outpatient [id number] BOBBY FAGAN 02/01/2016 Active [facility] Outpatient [id number] MAGDALENE CORA-PRATT 04/27/2016 Active [facility] [place] [facility] [id number] Magdalene Cora-Pratt 04/28/2016 04/29/2016 [facility] [place] Outpatient [id number] ALEXA PECK 05/02/2016 Active [facility] Emergency [id number] Angelina Miller 201605/06/2016 [facility] Outpatient [id number] MELANIE ALMAGUER 05/18/2016 Active [facility] Outpatient [id number] Leif Danis 05/23/2016 05/24/2016 [facility] Outpatient [id number] LEIF DANIS 05/31/2016 Active [facility] Outpatient [id number] LEIF DANIS 07/05/2016 Active [facility] Outpatient [id number] NURSE VISIT 06/28/2017 Active [facility] Outpatient [id number] LATESHA BELLO 06/28/2017 Active [facility] Ambulatory Pre-Reg [id number] 06/28/2017 06/28/2017 [facility] Outpatient [id number] Latesha Bello 06/28/2017 06/29/2017 [facility] Emergency [id number] Refugio Gisella 201706/28/2017 [facility] Phone Message [id number] 07/03/2017 07/05/2017 [facility] Phone Message [id number] 07/06/2017 07/08/2017 [facility] Phone Message [id number] 07/12/2017 07/14/2017 [facility] Outpatient [id number] NURSE VISIT 09/12/2017 Active [facility] Outpatient [id number] NURSE VISIT 09/12/2017 Active [facility] Ambulatory Pre-Reg [id number] 09/12/2017 09/12/2017 [facility] Outpatient [id number] Latesha Bello 09/12/2017 09/13/2017 [facility] Outpatient [id number] LATESHA BELLO 10/03/2017 [facility] [id number] LATESHA BELLO 11/02/2017 Active [facility] Outpatient [id number] LATESHA BELLO 11/21/2017 Active [facility] Outpatient [id number] LATESHA BELLO 11/24/2017 Active [facility] Outpatient [id number] LATESHA ACE 02/02/2018 Active [facility] Procedures Procedure Code Date Perfomer Comments Source Endoscopic prostatectomy [id number] [facility] Functional endoscopic sinus surgery - anterior ethmoidectomy and frontal recess dissection [id number] [facility] Hemorrhoidectomy [id number] [facility] Tonsillectomy [id number] [facility] Triple coronary bypass [id number] [facility] Endoscopic prostatectomy [id number] [place] Functional endoscopic sinus surgery - anterior ethmoidectomy and frontal recess dissection [id number] [facility] Hemorrhoidectomy [id number] [facility] Tonsillectomy [id number] [facility] Triple coronary bypass [id number] [facility] Endoscopic prostatectomy [id number] [facility] [place] Functional endoscopic sinus surgery - anterior ethmoidectomy and frontal recess dissection [id number] [facility] [place] Hemorrhoidectomy [id number] [facility] [place] Tonsillectomy [id number] [facility] [place] Triple coronary bypass [id number] [facility] [place] Endoscopic prostatectomy [id number] [facility] [place] Functional endoscopic sinus surgery - anterior ethmoidectomy and frontal recess dissection [id number] [facility] [place] Hemorrhoidectomy [id number] [facility] [place] Tonsillectomy [id number] [facility] [place] Triple coronary bypass [id number] [facility] [place]
--- OUTSIDE RECORDS SUMMARY | 2017-12-21 07:24 | XMS REPORT | Summary of Care ---
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 [...]
--- OUTSIDE RECORDS SUMMARY | 2017-12-21 07:24 | XMS REPORT | Summary of Care ---
Author Author [facility] Organization [facility] Address Unknown Phone Unavailable Encounter BERNARD Miller(MIRELLA) [id number] Date(s): 05/05/16 - 05/06/16 [facility] [address] [place] [address]- [phone] Discharge Diagnosis: Acute constipation Discharge Diagnosis: Compression fracture of T12 vertebra Discharge Diagnosis: Hypertension Discharge Disposition: Home or Self Care Attending Physician: Angelina Miller MD Vital Signs 1 2 3 Most recent to oldest [Reference Range]: 172.72 cm (05/05/16 4:44 PM) Height 98.2 DegF (05/06/16 1:00 AM) 98.0 DegF (05/05/16 10:42 PM) 98.0 DegF (05/05/16 7:46 PM) Temperature Oral [96.4-99.1 DegF] 147/82 mmHg *HI* (05/06/16 1:00 AM) 160/77 mmHg *HI* (05/05/16 10:42 PM) 197/101 mmHg *HI* (05/05/16 9:25 PM) Blood Pressure [90-140/60-90 mmHg] 20 BRMIN (05/06/16 1:00 AM) 20 BRMIN (05/05/16 10:42 PM) 20 BRMIN (05/05/16 7:46 PM) Respiratory Rate [14-20 BRMIN] 70 bpm (05/06/16 1:00 AM) 68 bpm (05/05/16 10:42 PM) 64 bpm (05/05/16 9:25 PM) Peripheral Pulse Rate [60-100 bpm] 83.636 kg (05/05/16 4:44 PM) Weight 28.04 m2 (05/05/16 4:44 PM) Body Mass Index Problem List Condition Effective Dates Status Health [...] 12/26/12 Active Hypothyroidism9 12/26/12 Active Obesity(Confirmed) Active Secadqnabrsw83 12/26/12 Active 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 [...] Substance Reaction Severity Status NKDA Active Medications lactulose 10 g/15 mL oral syrup 10 gm=15 mL, PO, Daily, PRN constipation, X 5 day, # 75 mL, 0 Refill(s) Start Date: 05/06/16 Stop Date: 05/11/16 Status: Ordered MiraLax oral powder for reconstitution 17 gm, PO, Bedtime, PRN Constipation, Dissolve in 8 oz. of water, X 10 day, # 255 gm, 1 Refill(s) Start Date: 05/06/16 Stop Date: 05/26/16 Status: Ordered MiraLax oral powder for reconstitution 17 gm, PO, Bedtime, Dissolve in 8 oz. of water, X 7 day, # 1 ea, 1 Refill(s), Pharmacy: [facility] [id number] Start Date: 05/05/16 Stop Date: 05/19/16 Status: Ordered Results ELECTROLYTES Most recent to 1 oldest [Reference Range]: Sodium Lvl [135-145 136 mEq/L mEq/L] (05/05/16 5:26 PM) Potassium Lvl 4.0 mEq/L [3.5-5.1 mEq/L] (05/05/16 5:26 PM) Chloride Lvl [95-109 96 mEq/L mEq/L] (05/05/16 5:26 PM) CO2 [24-32 mEq/L] 32 mEq/L (05/05/16 5:26 PM) AGAP [10.0-20.0 12.0 mEq/L mEq/L] (05/05/16 5:26 PM) CHEM PANEL Most recent to 1 oldest [Reference Range]: Creatinine Lvl 1.10 mg/dL [0.50-1.40 mg/dL] (05/05/16 5:26 PM) eGFR 65 mL/min/1.73m2 1 *NA* (05/05/16 5:26 PM) BUN [7-22 mg/dL] 18 mg/dL (05/05/16 5:26 PM) B/C Ratio [6-25] 16 (05/05/16 5:26 PM) Glucose Lvl [70-99 109 mg/dL mg/dL] *HI* (05/05/16 5:26 PM) Total Protein 7.8 g/dL [6.4-8.4 g/dL] (05/05/16 5:26 PM) Albumin Lvl [3.5-5.0 4.3 g/dL g/dL] (05/05/16 5:26 PM) Globulin [2.7-4.2 3.5 g/dL g/dL] (05/05/16 5:26 PM) A/G Ratio [0.7-1.6] 1.2 (05/05/16 5:26 PM) Calcium Lvl 9.4 mg/dL [8.5-10.5 mg/dL] (05/05/16 5:26 PM) ALT [0-65 unit/L] 32 unit/L (05/05/16 5:26 PM) AST [0-37 unit/L] 18 unit/L (05/05/16 5:26 PM) Alk Phos [39-136 74 unit/L unit/L] (05/05/16 5:26 PM) Bili Total [0.2-1.3 0.4 mg/dL mg/dL] (05/05/16 5:26 PM) 1Result Comment: The eGFR is calculated using the CKD-EPI formula. In most young , healthy individuals the eGFR will be >90 mL/min/1.73m2. The eGFR declines with age. An eGFR of 60-89 may be normal in some populations, particularly the elderly, for whom the CKD-EPI formula has not been extensively validated. Use [...] should be multiplied by the estimated BMI. URINE AND STOOL Most recent to 1 oldest [Reference Range]: UA Turbidity [Clear] Clear (05/05/16 10:57 PM) UA Color Ltyellow *NA* (05/05/16 10:57 PM) UA pH [5.0-8.0] 7.0 (05/05/16 10:57 PM) UA Spec Grav 1.008 [<=1.030] (05/05/16 10:57 PM) UA Glucose [Negative Negative mg/dL mg/dL] *NA* (05/05/16 10:57 PM) UA Blood [Negative] Small *ABN* (05/05/16 10:57 PM) UA Ketones [Negative Negative mg/dL mg/dL] *NA* (05/05/16 10:57 PM) UA Protein [Negative Negative mg/dL mg/dL] (05/05/16 10:57 PM) UA Urobilinogen <=1.0 mg/dL [0.1-1.0 mg/dL] *NA* (05/05/16 10:57 PM) UA Bili [Negative] Negative *NA* (05/05/16 10:57 PM) UA Leuk Est Negative [Negative] (05/05/16 10:57 PM) UA Nitrite Negative [Negative] (05/05/16 10:57 PM) UA WBC [0-5 /HPF] 1 /HPF (05/05/16 10:57 PM) UA RBC [0-2 /HPF] 1 /HPF (05/05/16 10:57 PM) UA Sq Epi None Seen *NA* (05/05/16 10:57 PM) HEMATOLOGY Most recent to 1 oldest [Reference Range]: WBC [3.7-10.4 K/CMM] 7.7 K/CMM (05/05/16 5:26 PM) RBC [4.70-6.10 4.85 M/CMM M/CMM] (05/05/16 5:26 PM) Hgb [14.0-18.0 g/dL] 15.0 g/dL (05/05/16 5:26 PM) Hct [42.0-54.0 %] 42.8 % (05/05/16 5:26 PM) MCV [80.0-94.0 fL] 88.3 fL (05/05/16 5:26 PM) MCH [27.0-31.0 pg] 30.9 pg (05/05/16 5:26 PM) MCHC [32.0-36.0 35.1 g/dL g/dL] (05/05/16 5:26 PM) RDW [11.5-14.5 %] 12.9 % (05/05/16 5:26 PM) Platelet [133-450 266 K/CMM K/CMM] (05/05/16 5:26 PM) MPV [7.4-10.4 fL] 8.0 fL (05/05/16 5:26 PM) Segs [45.0-75.0 %] 57.8 % (05/05/16 5:26 PM) Lymphocytes 27.2 % [20.0-40.0 %] (05/05/16 5:26 PM) Monocytes [2.0-12.0 9.3 % %] (05/05/16 5:26 PM) Eosinophils [0.0-4.0 4.6 % %] *HI* (05/05/16 5:26 PM) Basophils [0.0-1.0 1.1 % %] *HI* (05/05/16 5:26 PM) Segs-Bands # 4.4 K/CMM [1.5-8.1 K/CMM] (05/05/16 5:26 PM) Lymphocytes # 2.1 K/CMM [1.0-5.5 K/CMM] (05/05/16 5:26 PM) Monocytes # [0.0-0.8 0.7 K/CMM K/CMM] (05/05/16 5:26 PM) Eosinophils # 0.4 K/CMM [0.0-0.5 K/CMM] (05/05/16 5:26 PM) Basophils # [0.0-0.2 0.1 K/CMM K/CMM] (05/05/16 5:26 PM) Immunizations Given and Recorded Vaccine Date Status [...]
--- OUTSIDE RECORDS SUMMARY | 2017-12-21 07:24 | XMS REPORT | Summary of Care ---
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 [...]
--- OUTSIDE RECORDS SUMMARY | 2017-12-21 07:25 | XMS REPORT | Summary of Care ---
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 [...]
--- OUTSIDE RECORDS SUMMARY | 2017-12-21 07:25 | XMS REPORT | Summary of Care ---
Author Author [facility] Organization [facility] Address Unknown Phone Unavailable Encounter HQ Paul(FIN) [id number] Date(s): 06/28/17 - 06/28/17 [facility] [address] [place] [address]- [phone] Encounter Diagnosis Bilateral inguinal hernia (Discharge Diagnosis) - 06/28/17 Diverticulosis (Discharge Diagnosis) - 06/28/17 Discharge Disposition: Home or Self Care Attending Physician: Refugio Obando MD Vital Signs 1 2 3 Most recent to oldest [Reference Range]: 172.72 cm (06/28/17 12:11 PM) Height 97.4 DegF (06/28/17 3:46 PM) 97.9 DegF (06/28/17 12:11 PM) Temperature Oral [96.4-99.1 DegF] 164/82 mmHg *HI* (06/28/17 3:46 PM) 161/83 mmHg *HI* (06/28/17 3:29 PM) 147/81 mmHg *HI* (06/28/17 2:05 PM) Blood Pressure [90-140/60-90 mmHg] 15 BRMIN (06/28/17 3:46 PM) 12 BRMIN *LOW* (06/28/17 3:29 PM) 23 BRMIN *HI* (06/28/17 2:05 PM) Respiratory Rate [14-20 BRMIN] 66 bpm (06/28/17 12:11 PM) Peripheral Pulse Rate [60-100 bpm] 81.818 kg (06/28/17 12:11 PM) Weight 27.43 m2 (06/28/17 12:11 PM) Body Mass Index Problem List Condition [...] Hypothyroidism9 12/26/12 Active Cancer(Confirmed) Resolved Obesity(Confirmed) Active Zmhlcdynmvjt21 12/26/12 Active 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 [...] Substance Reaction Severity Status NKDA Active Medications Saline Flush 0.9% 10 mL, Route: IVP, Drug Form: INJ, Dosing Weight 81.818, kg, PRN, PRN Line Flush , Start date: 06/28/17 12:33:00 CDT, Duration: 30 day, Stop date: 07/28/17 12:32 :00 CDT Notes: (Same as: BD Posiflush) Start Date: 06/28/17 Stop Date: 06/28/17 Status: Discontinued Results ELECTROLYTES Most recent to 1 oldest [Reference Range]: Sodium Lvl [135-145 139 mEq/L mEq/L] (06/28/17 12:51 PM) Potassium Lvl 4.4 mEq/L [3.5-5.1 mEq/L] (06/28/17 12:51 PM) Chloride Lvl [95-109 99 mEq/L mEq/L] (06/28/17 12:51 PM) CO2 [24-32 mEq/L] 32 mEq/L (06/28/17 12:51 PM) AGAP [10.0-20.0 12.4 mEq/L mEq/L] (06/28/17 12:51 PM) CHEM PANEL Most recent to 1 oldest [Reference Range]: Creatinine Lvl 1.01 mg/dL [0.50-1.40 mg/dL] (06/28/17 12:51 PM) eGFR 71 mL/min/1.73m2 1 *NA* (06/28/17 12:51 PM) BUN [7-22 mg/dL] 14 mg/dL (06/28/17 12:51 PM) B/C Ratio [6-25] 14 (06/28/17 12:51 PM) Glucose Lvl [70-99 225 mg/dL mg/dL] *HI* (06/28/17 12:51 PM) Total Protein 7.5 g/dL [6.4-8.4 g/dL] (06/28/17 12:51 PM) Albumin Lvl [3.5-5.0 3.6 g/dL g/dL] (06/28/17 12:51 PM) Globulin [2.7-4.2 3.9 g/dL g/dL] (06/28/17 12:51 PM) A/G Ratio [0.7-1.6] 0.9 (06/28/17 12:51 PM) Calcium Lvl 9.8 mg/dL [8.5-10.5 mg/dL] (06/28/17 12:51 PM) Phosphorus [2.5-4.5 3.1 mg/dL mg/dL] (06/28/17 12:51 PM) Magnesium Lvl 2.0 mg/dL [1.8-2.4 mg/dL] (06/28/17 12:51 PM) ALT [0-65 unit/L] 21 unit/L (06/28/17 12:51 PM) AST [0-37 unit/L] 13 unit/L (06/28/17 12:51 PM) Alk Phos [39-136 61 unit/L unit/L] (06/28/17 12:51 PM) Bili Total [0.2-1.3 0.6 mg/dL mg/dL] (06/28/17 12:51 PM) Lipase Lvl [73-393 141 unit/L unit/L] (06/28/17 12:51 PM) 1Result Comment: The eGFR is calculated [...] oldest [Reference Range]: UA Turbidity [Clear] Clear (06/28/17 1:56 PM) UA Color [Yellow] Yellow *NA* (06/28/17 1:56 PM) UA pH [5.0-8.0] 6.0 (06/28/17 1:56 PM) UA Spec Grav 1.012 [<=1.030] (06/28/17 1:56 PM) UA Glucose [Negative 150 mg/dL mg/dL] *ABN* (06/28/17 1:56 PM) UA Blood [Negative] Small *ABN* (06/28/17 1:56 PM) UA Ketones [Negative Negative mg/dL mg/dL] *NA* (06/28/17 1:56 PM) UA Protein [Negative Negative mg/dL mg/dL] (06/28/17 1:56 PM) UA Urobilinogen <=1.0 mg/dL [0.1-1.0 mg/dL] *NA* (06/28/17 1:56 PM) UA Bili [Negative] Negative *NA* (06/28/17 1:56 PM) UA Leuk Est Negative [Negative] (06/28/17 1:56 PM) UA Nitrite Negative [Negative] (06/28/17 1:56 PM) UA WBC [0-5 /HPF] 1 /HPF (06/28/17 1:56 PM) UA RBC [0-2 /HPF] 5 /HPF *HI* (06/28/17 1:56 PM) UA Bacteria [None Occasional /HPF Seen /HPF] *NA* (06/28/17 1:56 PM) UA Sq Epi None Seen *NA* (06/28/17 1:56 PM) HEMATOLOGY Most recent to 1 oldest [Reference Range]: WBC [3.7-10.4 K/CMM] 6.7 K/CMM (06/28/17 12:51 PM) RBC [4.70-6.10 4.80 M/CMM M/CMM] (06/28/17 12:51 PM) Hgb [14.0-18.0 g/dL] 15.1 g/dL (06/28/17 12:51 PM) Hct [42.0-54.0 %] 43.9 % (06/28/17 12:51 PM) MCV [80.0-94.0 fL] 91.5 fL (06/28/17 12:51 PM) MCH [27.0-31.0 pg] 31.4 pg *HI* (06/28/17 12:51 PM) MCHC [32.0-36.0 34.3 g/dL g/dL] (06/28/17 12:51 PM) RDW [11.5-14.5 %] 12.6 % (06/28/17 12:51 PM) MPV [7.4-10.4 fL] 9.2 fL (06/28/17 12:51 PM) Platelet [133-450 198 K/CMM K/CMM] (06/28/17 12:51 PM) Segs [45.0-75.0 %] 57.7 % (06/28/17 12:51 PM) Lymphocytes 20.0 % [20.0-40.0 %] (06/28/17 12:51 PM) Monocytes [2.0-12.0 18.4 % %] *HI* (06/28/17 12:51 PM) Eosinophils [0.0-4.0 2.9 % %] (06/28/17 12:51 PM) Basophils [0.0-1.0 1.0 % %] (06/28/17 12:51 PM) Segs-Bands # 3.9 K/CMM [1.5-8.1 K/CMM] (06/28/17 12:51 PM) Lymphocytes # 1.3 K/CMM [1.0-5.5 K/CMM] (06/28/17 12:51 PM) Monocytes # [0.0-0.8 1.2 K/CMM K/CMM] *HI* (06/28/17 12:51 PM) Eosinophils # 0.2 K/CMM [0.0-0.5 K/CMM] (06/28/17 12:51 PM) Basophils # [0.0-0.2 0.1 K/CMM K/CMM] (06/28/17 12:51 PM) Immunizations Given and Recorded Vaccine Date [...]
--- OUTSIDE RECORDS SUMMARY | 2017-12-21 07:25 | XMS REPORT | Summary of Care ---
Author Author [facility] Organization [facility] Address Unknown Phone Unavailable Encounter HQ Encntr_shonda(FIN) [id number] Date(s): 09/12/17 - 09/12/[address] [place] [address]- [phone] Discharge Disposition: Home or Self Care Attending Physician: Nakul Simons MD Vital Signs Most recent to 1 oldest [Reference Range]: Height 172.72 cm (09/12/17 9:24 AM) Temperature Oral 98.2 DegF [96.4-99.1 DegF] (09/12/17 9:25 AM) Blood Pressure 144/73 mmHg [90-140/60-90 mmHg] *HI* (09/12/17 9:25 AM) Peripheral Pulse 62 bpm Rate [60-100 bpm] (09/12/17 9:25 AM) Weight 85.455 kg (09/12/17 9:24 AM) Body Mass Index 28.65 m2 (09/12/17 9:24 AM) Problem List Condition Effective Dates Status Health [...] Hypothyroidism9 12/26/12 Active Cancer(Confirmed) Resolved Obesity(Confirmed) Active Droxfsgzsixd99 12/26/12 Active 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 [...] and Recorded Vaccine Date Status Refusal Reason diphtheria/pertussis, acel/tetanus adult1 09/12/17 Given pneumococcal 23-valent vaccine 05/13/15 Given 1Result Comment: PATIENT WAITED 15 MINUTES AND HAD NO REACTION. Procedures Procedure Date Related Diagnosis Body Site [...]
--- OUTSIDE RECORDS SUMMARY | 2017-12-21 07:25 | XMS REPORT | Summary of Care ---
Author Author [facility] Organization [facility] Address Unknown Phone Unavailable Encounter HQ Hoodntr_shonda(FIN) [id number] Date(s): 06/28/17 - 06/28/[address] [place] [address]- [phone] Discharge Disposition: Home or Self Care Attending Physician: Nakul Simons MD Vital Signs Most recent to 1 oldest [Reference Range]: Height 172.72 cm (06/28/17 10:53 AM) Temperature Oral 98.0 DegF [96.4-99.1 DegF] (06/28/17 10:53 AM) Blood Pressure 134/80 mmHg [90-140/60-90 mmHg] (06/28/17 10:53 AM) Peripheral Pulse 64 bpm Rate [60-100 bpm] (06/28/17 10:53 AM) Weight 85.54 kg (06/28/17 10:53 AM) Body Mass Index 28.67 m2 (06/28/17 10:53 AM) Problem List Condition Effective Dates Status [...] Hypothyroidism9 12/26/12 Active Cancer(Confirmed) Resolved Obesity(Confirmed) Active Iahpdjineymw36 12/26/12 Active 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 [...] Substance Reaction Severity Status NKDA Active Medications Accu-Chek Aide Plus Blood Glucose Test Strips 1 ea, MISC, TID, Use for blood glucose monitoring., # 100 ea, Not insulin dependent, Does not use insulin pump, Last DM eval date 06/28/17, 11 Refill(s) Start Date: 06/28/17 Stop Date: 06/25/29 Status: Ordered Results No data available for [...]
--- OUTSIDE RECORDS SUMMARY | 2017-12-21 07:25 | XMS REPORT ---
Author Author [facility] Address Unknown Phone Unavailable Care Team Providers Care Plumber Cub Name Role Phone MARISELA PRIETO Unavailable Unavailable Problems This patient has no known problems. Allergies, Adverse Reactions, Alerts This patient has no known allergies or adverse reactions. Medications This patient has no known medications. Results Test Description Test Time Test Comments Text Results Atomic Results Result Comments CHEST 2 VIEWS 2017-11-27 11:40:00 [place] [address] Patient Name: FRANCE SCHAEFER MR #: [id number] : 1940 Age/Sex: 77/M Req #: [id number] [facility] Physician: Ordered by: MARISELA PRIETO MD Report #: [id number] Location: OR Room/Bed: Procedure: [id number] DX/CHEST 2 VIEWS Exam Date: 11/27/17 Exam Time: 1125 REPORT STATUS: Signed EXAMINATION: PA and lateral views of the chest. COMPARISON: None CLINICAL HISTORY: Preop bladder surgery DISCUSSION: The lungs are well-inflated. No focal airspace consolidation, pleural effusion, or pneumothorax. Postsurgical changes of the mediastinum include mediastinal surgical clips and median sternotomy wires. Tortuous thoracic aorta with atherosclerotic calcification. Normal heart size. No overt pulmonary edema. No acute osseous abnormalities. Multilevel level degenerative disc changes of the thoracic spine. Round lucent centered calcifications project over the upper abdomen on the lateral radiograph and likely reflect gallstones. IMPRESSION: Postsurgical changes of the mediastinum without acute cardiopulmonary abnormality.. Signed by: Dr. Pj Maguire M.D. on 11/27/2017 11:43 AM Dictated By: PJ MAGUIRE MD 1143 Transcribed By: DREW on 11/27/17 1143 COPY TO: MARISELA PRIETO MD CT ABDOMEN/PELVIS WOW 2017-10-26 13:28:00 [place] [address] Patient Name: FRANCE SCHAEFER MR #: [id number] : 1940 Age/Sex: 76/M Req #: [id number] Adm Physician: Ordered by: MARISELA PRIETO MD Report #: [id number] Location: CT Room/Bed: Procedure: [id number] CT/CT ABDOMEN/PELVIS WOW Exam Date: 10/26/17 Exam Time: 1010 REPORT STATUS: Signed PROCEDURE: CT ABDOMEN T PELVIS W/WO CONTRAST TECHNIQUE: The abdomen and pelvis were scanned utilizing a multidetector helical scanner from the diaphragm to the lesser trochanter before and after the IV administration of 150 cc of Isovue 370 and the oral administration of water. Coronal and sagittal multiplanar reformations were obtained. COMPARISON: Patients [facility], DX, ABDOMEN-1VIEW (KUB), 05/03/2011, 7:41. Patients [facility], US, US RENAL, 05/03/2011, 8:28. INDICATIONS: Microscopic hematuria FINDINGS: LOWER THORAX: 3 mm pulmonary nodule in the left lower lobe ( series 3, image 35). Extensive atherosclerotic calcification of the coronary arteries and to a lesser degree aortic valves and thoracic aorta. HEPATOBILIARY: Normal hepatic size and contour. No focal lesions. No biliary ductal dilation. Peripherally calcified 1.6 and 1.8 cm gallstones in the dependent portion of the bladder fundus. No wall thickening or pericholecystic fluid. SPLEEN: No splenomegaly. PANCREAS: No focal masses or ductal dilatation. ADRENALS: No adrenal nodules. KIDNEYS/URETERS: Bilateral renal vascular calcifications are noted. 0.2-0.3 cm nonobstructing calculus in the superior to mid left kidney (series 3, image 79). No other renal or any ureteral calculi. No hydronephrosis or obstruction. Symmetrical renal enhancement. Subcentimeter hypodense lesions in the left kidney (for example series 6, images 76 and 79), which are too small to characterize. The largest lesion measures approximately 4-5 mm and is hyperdense on noncontrast exam, suggesting a small hemorrhagic cyst (series 3 , image 81). There is good contrast opacification of bilateral renal collecting systems, renal pelves, proximal and mid right ureter and proximal , mid, and most distal left ureter. No filling defects or strictures. Mild urothelial thickening in the midportion of the left ureter (for example series 6, images 99-105). No focal lesion or ureteral dilation is identified. No solid enhancing masses. PELVIC ORGANS/BLADDER: Bladder is unremarkable, without wall thickening, or focal lesions. Multiple pelvic phleboliths. Multiple metallic clips posterior to the inferior bladder , which may reflect prior prostatectomy. PERITONEUM / RETROPERITONEUM: No free air or fluid. LYMPH NODES: No lymphadenopathy. VESSELS: Moderate to marked atherosclerotic calcification of the abdominal aorta, iliac vessels and aortic branches. The celiac trunk, superior and inferior mesenteric, and bilateral renal arteries are patent. Portal, superior mesenteric, and splenic veins are patent. GI TRACT: No bowel dilation or evidence of obstruction. Appendix is identified, and normal in caliber. Descending and sigmoid colon diverticulosis, without diverticulitis. BONES AND SOFT TISSUES: No aggressive lytic lesions. Degenerative disc changes in the lower thoracic and lumbosacral spine. Facet hypertrophy. L5-S1 and left L4-L5. 1.6 x 1.3 cm and 0.3 cm focal sclerotic lesions in the right iliac bone ( series 3, images 141 and 149-150). 1.0 cm focal sclerotic lesion in the right femoral head (series 3, image 166). 0.5 cm focal sclerotic lesion in the right acetabulum (series 3, image 155). 0.4 cm focal sclerotic lesion in the left iliac bone (series 3, image 152). These lesions have nonaggressive appearance. IMPRESSION: 1. 0.2-0.3 cm nonobstructing calculus in the superior to mid left kidney. No other renal or any ureteral calculi, hydronephrosis, or obstruction. 2. Mild urothelial thickening in the midportion of the left ureter, without focal lesion or ureteral dilation. The rest of the opacified portions of the genitourinary tract are unremarkable. Direct visualization with endoscopy would be helpful for further evaluation. 3. Multiple focal sclerotic lesions in the pelvis and right femur, as described. 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 Geneva Marshall M.D. Dictated by: Geneva Marshall M.D. on 2017 at 13:28 Electronically approved by: Geneva Marshall M.D. on 11/2017 at 13:28 Dictated By: GENEVA MARSHALL MD 1328 Transcribed By: NICK on 10/26/17 1328 COPY TO: MARISELA PRIETO MD
--- OUTSIDE RECORDS SUMMARY | 2017-12-21 07:25 | XMS REPORT | Summary of Care ---
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
--- OUTSIDE RECORDS SUMMARY | 2017-12-21 07:25 | XMS REPORT | Summary of Care ---
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
--- NOTE | 2018-01-11 01:36 | Operative Report ---
DATE OF PROCEDURE: November 29, 2017 PREOPERATIVE DIAGNOSIS: Microscopic hematuria. POSTOPERATIVE DIAGNOSES 1. Microscopic hematuria. 2. A 3-mm bladder stone. OPERATIONS PERFORMED 1. Cystourethroscopy with cystolitholapaxy of small bladder stones (separate procedure performed for diagnosis of stone). 2. Cystourethroscopy with bilateral ureteral catheterization and retrograde ureteropyelography (separately procedure performed to evaluate the upper tract in light of the hematuria). 3. Interpretation of retrograde ureteropyelography. 4. Supervision of fluoroscopy. No radiologist present. ANESTHESIA: General. COMPLICATIONS: None. CLINICAL SUMMARY: Wilmer Ray is a 77-year-old man who has been a longstanding patient of [facility]. The patient had undergone a radical perineal prostatectomy. His PSA levels have been low since then. The patient failed to follow up for quite some time for numerous reasons. Once he reestablished followup, we evaluated him and found that he had a 3-mm stone noted on CT on the left hand side. The patient was brought to the operating room to evaluate his hematuria. He is aware of the risks of bleeding, infection, injury to adjacent structures, need for additional procedures and elected to proceed. OPERATIVE PROCEDURE IN DETAIL: Informed consent was verified. Wilmer Ray was properly identified, taken to the operating room, placed on the cystoscopy table in supine position. Anesthesia was uneventfully begun. The patient was then carefully and gently re-positioned in the dorsal lithotomy position with all pressure points well padded. His genitalia were prepared and draped in usual sterile fashion. The 22.5-Dutch cystoscope sheath with a visual obturator in place was atraumatically inserted in the patient's urethra. It was guided down the unremarkable urethra through the normal sphincteric region, through the wide open urethrovesical anastomosis and into the patient's bladder where there were grade 1 trabeculations, normally positioned ureteral orifices, and a small stone. This stone was grasped with a grasper. It was crushed a little bit and it was extracted. Panendoscopy revealed no additional stones, no tumors, and no suspicious lesions. An 8-Dutch catheter was used to cannulate each ureter and retrograde ureteropyelograms were performed. Interpretation of retrograde ureteropyelography: Contrast was instilled in retrograde fashion bilaterally. There were no tumors, no stones, and no diverticula. Unobstructed drainage was observed bilaterally fluoroscopically. The patient's bladder was then drained. Cystoscope was withdrawn and the patient was uneventfully reversed from anesthesia and taken to the recovery room in stable condition. Explicit postop instructions were given. We will follow the patient up in the office on an indefinite basis. Job#: [id number] CF
== END | disposition home or self-care (01) ==
LOC: OR 07:54
PROVIDERS: ATTEND Urology
DX: N21.0 Calculus in bladder (principal); N32.89 Other specified disorders of bladder; I49.3 Ventricular premature depolarization; H91.90 Unspecified hearing loss, unspecified ear; I10 Essential (primary) hypertension; E11.9 Type 2 diabetes mellitus without complications; I48.91 Unspecified atrial fibrillation; I25.810 Atherosclerosis of coronary artery bypass graft(s) without angina pectoris; Z01.812 Encounter for preprocedural laboratory examination; Z01.818 Encounter for other preprocedural examination; Z79.84 Long term (current) use of oral hypoglycemic drugs; Z79.01 Long term (current) use of anticoagulants; Z86.73 Personal history of transient ischemic attack (TIA), and cerebral infarction without residual deficits; Z95.1 Presence of aortocoronary bypass graft; Z87.891 Personal history of nicotine dependence
CPT/HCPCS: 36415 ×2; 52005; 52317; 71046; 74420; 80048; 82948; 85025; 85610; 85730; 88300; C1758; J0696; J1100; J2001; J2405; Q9967

== ENCOUNTER → 2018-01-29 | Outpatient (CLI) | payer MEDICARE ==
[~2018-01-29] MED LIST changes: -CEFTRIAXONE SOD 1 GM VIAL ONE; -DEXAMETHASONE SOD PHOS INJ 4 MG/ML VIAL ONE; -IOPAMIDOL 300MG/ML 50ML INFUS..BTL IV ONE; -LIDOCAINE HCL 2% LOCAL INJ 5 ML SDV VIAL INJ ONE; -ONDANSETRON HCL INJ 2 MG/ML VIAL ONE; -PROPOFOL IV EMULSION 10 MG/ML 20 ML VIAL ONE; -SEVOFLURANE INHAL SOLN 250 ML PEN BTL ONE
--- NOTE | 2018-01-29 14:17 | Diagnostic Imaging Report ---
Exam: Testicular ultrasound with doppler Clinical History: Right groin pain. Comparison: CT Abdomen/Pelvis 10/26/17. Findings: Sonographic evaluation of the testicles. Both testes are normal in echogenicity and size without intratesticular mass. The right testicle measures 4.1 x 2.2 x 3.1 cm and the left testicle measures 3.7 x 2.1 x 2.9 cm. Normal doppler flow bilaterally. Small right epididymal cysts. Both epididymides are otherwise normal in appearance. Normal doppler flow bilaterally. No hydroceles or varicoceles. In the left inguinal region, there is a heterogeneously hyperechoic somewhat tubular structure without vascular flow. Impression: Unremarkable appearance of bilateral testicles. No sonographic evidence of torsion. Heterogeneous somewhat tubular structure in the left inguinal region most likely represents an inguinal hernia, a fat containing inguinal hernia was present on CT from 10/26/17. Signed by: Dr. Flaco Thomas MD on 01/29/2018 2:13 PM
== END ==
LOC: US 10:59
PROVIDERS: ATTEND Urology
DX: N50.819 Testicular pain, unspecified (principal)
CPT/HCPCS: 76870; 93976

== ENCOUNTER → 2018-05-09 | Day surgery (SDC) | payer MEDICARE ==
[~2018-05-09] MED LIST changes: +BELLADONNA/OPIUM 30 MG SUPP RC ONE; +BOTULINUM TOXIN TYPE A 100 UNIT VIAL IM ONE; +BUPIVACAINE 0.25% 30ML SDV INJ ONE; +BUPIVACAINE 0.5%/EPI 30 ML SDV INJ ONE; +CEFAZOLIN SOD 1 GM/NS 50ML 50 ML IV ONE; +DEXAMETHASONE SOD PHOS INJ 4 MG/ML VIAL ONE; +FENTANYL CITRATE/PF 100MCG/2 ML INJ ONE; +HYDROCHLOROTHIA25 MG PO; +IOPAMIDOL 610MG/1ML 300 MG/ML VIAL IV ONE; +IRBESARTAN150 MG PO; +KETOROLAC TROMETHAMINE 30 MG/ML VIAL ONE; +LIDOCAINE HCL 2% LOCAL INJ 5 ML SDV VIAL INJ ONE; +LOVENOX SC; +MIDAZOLAM HCL 2 MG/2 ML VIAL ONE; +ONDANSETRON HCL INJ 2MG/ML 2ML 2 MG/ML VIAL ONE; +PROPOFOL IV EMULSION 10 MG/ML 20 ML VIAL ONE; +SEVOFLURANE INHAL SOLN 250 ML PEN BTL ONE; +SULFAMETHOXAZO1 EAC1 PO; +TYLENOL # 31 EA PO; -WARFARIN SODIUM4 MG; +WARFARIN SODIUM4 MG PO
--- OUTSIDE RECORDS SUMMARY | 2018-05-09 06:19 | XMS REPORT | Summary of Care ---
Author Author [facility] Organization [facility] Address Unknown Phone Unavailable Encounter HQ [email or web address](FIN) [id number] Date(s): 10/03/17 - 10/03/17 [place] [id number] [facility], [address] [place] [address]- [phone] Discharge Disposition: Home or Self Care Attending Physician: Nakul Simons MD Vital Signs Most recent to 1 oldest [Reference Range]: Height 172.72 cm (10/03/17 9:58 AM) Temperature Oral 97.6 DegF [96.4-99.1 DegF] (10/03/17 9:58 AM) Blood Pressure 165/75 mmHg [90-140/60-90 mmHg] *HI* (10/03/17 9:58 AM) Peripheral Pulse 56 bpm Rate [60-100 bpm] *LOW* (10/03/17 9:58 AM) Weight 84.602 kg (10/03/17 9:58 AM) Body Mass Index 28.36 m2 (10/03/17 9:58 AM) Problem List Condition Effective Dates Status Health Status Informant 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) Anticoagulated(Confi Active rmed) Aortic Active stenosis(Confirmed) Bilateral inguinal Active hernia(Confirmed) Cholelithiasis(Confi Active rmed) CABG x 3 - Coronary Active artery bypass grafts x 3(Confirmed) Cancer of Active prostate(Confirmed) Vertebral Active compression fracture(Confirmed) Coronary 12/26/12 Active 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, 3, 4 Diabetes(Confirmed) Resolved Diverticulosis(Confi Active rmed) Dizziness(Confirmed) Resolved Hearing loss5 12/26/12 Active History of CVA in Active adulthood(Confirmed) S/p CABG (coronary Active artery bypass graft)(Confirmed) S/P coronary artery Active stent placement(Confirmed) History of colon Active polyps(Confirmed) Hyperlipidemia(Confi 12/26/12 Active rmed)6 Hypertension(Confirm Active ed) 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 Hypogonadism8 12/26/12 Active Hypothyroidism(Confi 12/26/12 Active rmed)9 Nephrolithiasis(Conf Active irmed) Cancer(Confirmed) Resolved Microscopic Active hematuria(Confirmed) Obesity(Confirmed) Active Osteopenia(Confirmed Active ) Paroxysmal atrial Active fibrillation(Confirm ed) 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 [...] 13Data migrated from [employer] on 08/16/14. Allergies, Adverse Reactions, Alerts Substance Reaction Severity Status NKDA Active Medications No Known Medications Results No data available for this section Immunizations Given and Recorded Vaccine Date Status Refusal Reason diphtheria/pertussis, acel/tetanus adult1 09/12/17 Given pneumococcal 13-valent vaccine 12/05/16 Recorded pneumococcal 23-valent vaccine 05/13/15 Given pneumococcal 23-valent vaccine 05/13/15 Recorded 1Result Comment: PATIENT WAITED 15 MINUTES AND [...] 11.0; Stopped at age: 44; entered on: 02/02/18 Assessment and Plan No data available for this section
--- OUTSIDE RECORDS SUMMARY | 2018-05-09 06:19 | XMS REPORT | Summary of Care ---
Author Author [facility] [place] Address Unknown Phone Unavailable Encounter HQ Justa_shonda(FIN) [id number] Date(s): 10/11/17 - 10/11/17 [facility] [place] [address] [place] [address], [address] [place] [address]- [phone] Encounter Diagnosis Age-related osteoporosis without current pathological fracture (Final) - 10/17/17 Discharge Disposition: Home or Self Care Attending Physician: Nakul Simons MD Referring Physician: Nakul Simons MD Vital Signs No data available for [...] circulatory disorder associated with type 2 diabetes [id number] Hplvuc70 12/26/12 Active Tinnitus(Confirmed) Active Type 2 diabetes Active mellitus(Confirmed) Urinary 10/22/13 Active [id number] Vertigo(Confirmed) Active Warfarin therapy 12/26/12 Active [id number] 1Data migrated from [employer] on 08/16/14. [...]
--- OUTSIDE RECORDS SUMMARY | 2018-05-09 06:19 | XMS REPORT | Continuity of Care Document ---
Author Author [facility] Interface Address Unknown Phone Unavailable Problems Problem Status Onset Date Classification Date Reported Comments Source Age-related osteoporosis without current pathological fracture 10/18/2017 [facility]30[facility] [place] [facility] inguinal hernia 06/28/2017 07/01/2017 [facility] Diverticulosis 06/28/2017 07/01/2017 [facility] ABDOMINAL PAIN Active 06/28/2017 [facility] DX: M48.54XA=COLLAPSED VERTEBRA, NOT ELS Active 05/19/2016 [facility] Discharge Diagnosis: Acute constipation 05/05/2016 05/09/2016 [facility] Discharge Diagnosis: Compression fracture of T12 vertebra 05/05/2016 05/09/2016 [facility] Discharge Diagnosis: Hypertension 05/05/2016 05/09/2016 [facility] CONSTIPATION Active 05/05/2016 [facility] M81.8 - OTHER OSTEOPOROSIS WITHOUT CUR Active 05/22/2015 [facility] 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<sup>13</sup> Active 10/22/2013 Problem 05/01/2016 Data migrated from [employer] on 08/16/14. [facility] [place] Urinary incontinence<sup>13</sup> Active 10/22/2013 Problem 09/15/2017 Data migrated from [employer] on 08/16/14. CATHY Zhong [facility] Urinary incontinence<sup>13</sup> Active 10/22/2013 Problem 07/01/2017 Data migrated from [employer] on 08/16/14. CATHY Zhong,[facility] Urinary incontinence<sup>12</sup> Active 10/22/2013 Problem 04/30/2018 Data migrated from [employer] on 08/16/14. [facility], [facility] [place] Coronary arteriosclerosis<sup>1</sup> Active 12/26/2012 Problem 04/30/2018 Data migrated from [employer] on 08/16/14. CATHY Zhong, CATH[facility] [place] Hearing loss<sup>5</sup> Active 12/26/2012 Problem 04/30/2018 Data migrated from [employer] on 08/16/14. CATHY Zhong, CATH[facility] [place] Hyperlipidemia<sup>6</sup> Active 12/26/2012 Problem 04/30/2018 Data migrated from [employer] on 08/16/14. CATHY Zhong, CATH[facility] [place] Hypertensive heart disease without congestive heart failure<sup>7</sup> Resolved 12/26/2012 Problem 04/30/2018 Data migrated from [employer] on 08/16/14. CATHY Zhong, CATH[facility] [place] Hypogonadism<sup>8</sup> Active 12/26/2012 Problem 04/30/2018 Data migrated from [employer] on 08/16/14. CATHY Zhong, CATH[facility] [place] Hypothyroidism<sup>9</sup> Active 12/26/2012 Problem 04/30/2018 Data migrated from [employer] on 08/16/14. CATHY Zhong, MATIASD [place] Osteoporosis<sup>10</sup> Active 12/26/2012 Problem 05/01/2016 Data migrated from [employer] on 08/16/14. [facility] [place] Smoker<sup>12</sup> Active 12/26/2012 Problem 05/01/2016 Data migrated from [employer] on 08/16/14. [facility] [place] Warfarin therapy started<sup>14</sup> Active 12/26/2012 Problem 05/01/2016 Data migrated from [employer] on 08/16/14. CATHY Zhong, CATH[facility] [place] Coronary arteriosclerosis<sup>1</sup> Active 12/26/2012 Problem 04/22/2018 Data migrated from [employer] on 08/16/14. [facility]ATHY Zhong [facility] Hearing loss<sup>5</sup> Active 12/26/2012 Problem 04/22/2018 Data migrated from [employer] on 08/16/14. [facility]Y [facility]ong [facility] Hyperlipidemia<sup>6</sup> Active 12/26/2012 Problem 04/22/2018 Data migrated from [employer] on 08/16/14. CATHY Zhong [facility] Hypertensive heart disease without congestive heart failure<sup>7</sup> Resolved 12/26/2012 Problem 04/22/2018 Data migrated from [employer] on 08/16/14. YAHIR Zhong [facility] Hypogonadism<sup>8</sup> Active 12/26/2012 Problem 04/22/2018 Data migrated from [employer] on 08/16/14. CATHY Zhong [facility] Hypothyroidism<sup>9</sup> Active 12/26/2012 Problem 04/22/2018 Data migrated from [employer] on 08/16/14. YAHIR Zhong [facility] Osteoporosis<sup>10</sup> Active 12/26/2012 Problem 09/15/2017 Data migrated from [employer] on 08/16/14. CATHY Zhong [facility] Smoker<sup>12</sup> Active 12/26/2012 Problem 09/15/2017 Data migrated from [employer] on 08/16/14. CATHY [facility]ong [facility] Warfarin therapy started<sup>14</sup> Active 12/26/2012 Problem 09/15/2017 Data migrated from [employer] on 08/16/14. YAHIR Zhong [facility] Coronary arteriosclerosis<sup>1</sup> Active 12/26/2012 Problem 07/01/2017 Data migrated from [employer] on 08/16/14. YAHIR Zhong [place] Hearing loss<sup>5</sup> Active 12/26/2012 Problem 07/01/2017 Data migrated from [employer] on 08/16/14. CATHY Zhong [place] Hyperlipidemia<sup>6</sup> Active 12/26/2012 Problem 07/01/2017 Data migrated from [employer] on 08/16/14. CATHY Zhong, [place] Hypertensive heart disease without congestive heart failure<sup>7</sup> Active 12/26/2012 Problem 07/01/2017 Data migrated from [employer] on 08/16/14. CATHY Zhong [place] Hypogonadism<sup>8</sup> Active 12/26/2012 Problem 07/01/2017 Data migrated from [employer] on 08/16/14. CATHY Zhong [place] Hypothyroidism<sup>9</sup> Active 12/26/2012 Problem 07/01/2017 Data migrated from [employer] on 08/16/14. CATHY Zhong [place] Osteoporosis<sup>10</sup> Active 12/26/2012 Problem 07/01/2017 Data migrated from [employer] on 08/16/14. CATHY Zhong [place] Smoker<sup>12</sup> Active 12/26/2012 Problem 07/01/2017 Data migrated from [employer] on 08/16/14[facility] War[facility] started<sup>14</sup> Active 12/26/2012 Problem 07/01/2017 Data migrated from [employer] on 08/16/14. CATHY Zhong [place] Smoker<sup>11</sup> Active 12/26/2012 Problem 04/30/2018 Data migrated from [employer] on 08/16/14. [facility], [facility] [place] Warfarin therapy started<sup>13</sup> Active 12/26/2012 Problem 04/30/2018 Data migrated from [employer] on 08/16/14. 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 Problem 04/22/2018 [facility] [place] CABG x 3 - Coronary artery bypass grafts x 3 Active Problem 04/22/2018 [facility] [place] Cancer of prostate Active Problem 04/22/2018 [facility] [place] Diabetes mellitus Active Problem 09/15/2017 [facility] [place] BP (<span ID="[id number]">Confirmed</span>) Resolved Problem 09/15/2017 [facility] [place] Obesity Active Problem 04/22/2018 [facility] [place] Peripheral circulatory disorder associated with type 2 diabetes mellitus<sup>11</sup> Active Problem 09/15/2017 Data migrated from [facility] on 08/16/14. 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 [facility] [place], [place] Obesity Active Problem 04/30/2018 [facility] [place], [facility] [place] Memory loss Active Problem 04/30/2018 [facility], [facility] [place] Anticoagulated Active Problem 04/30/2018 [facility], [facility] [place] Aortic stenosis Active Problem 04/30/2018 [facility], [facility] [place] Bilateral inguinal hernia Active Problem 04/30/2018 [facility], [facility] [place] Cholelithiasis Active Problem 04/30/2018 [facility], [facility] [place] Vertebral compression fracture Active Problem 04/30/2018 [facility], [facility] [place] Diabetes Resolved Problem 04/30/2018 [facility], [facility] [place] Diverticulosis Active Problem 04/30/2018 [facility], [facility] [place] Dizziness Resolved Problem 04/30/2018 [facility], [facility] [place] History of CVA in adulthood Active Problem 04/30/2018 [facility], [facility] [place] S/p CABG (<span ID="[id number]">Confirmed</span>) Active Problem 04/30/2018 [facility], [facility] [place] S/P coronary artery stent placement Active Problem 04/30/2018 [facility], [facility] [place] History of colon polyps Active Problem 04/30/2018 [facility], [facility] [place] Hypertension Active Problem 04/30/2018 [facility] [place] Nephrolithiasis Active Problem 04/30/2018 [facility] [place] Cancer Resolved Problem 04/30/2018 [facility], [facility] [place] Microscopic hematuria Active Problem 04/30/2018 [facility] [place] Osteopenia Active Problem 04/30/2018 [facility], [facility] [place] Paroxysmal atrial fibrillation Active Problem 04/30/2018 [facility], [facility] [place] Peripheral circulatory disorder associated with type 2 diabetes mellitus<sup>10</sup> Active Problem 04/30/2018 Data migrated from [employer] on 08/16/14. [facility] [place] Tinnitus Active Problem 04/30/2018 [facility] [place] Type 2 diabetes mellitus Active Problem 04/30/2018 [facility], [facility] [place] Vertigo Active Problem 04/30/2018 [facility], [facility] [place] COLLAPSED VERTEBRA, NEC, THORACIC REGION Active [facility] Medications Medication Details Route Status Patient Instructions Ordering Provider Order Date Source pravastatin 10 mg oral tablet See Instructions, # 90 tab, Refill(s) 5, TAKE 1 TABLET BY MOUTH EVERY DAY, Pharmacy: [facility] [id number] Active 07/03/2017 [facility] Saline Flush 0.9% 10 mL, Route: IVP, Drug Form: INJ, Dosing Weight 81.818, kg, PRN, PRN Line Flush, Start date: 06/28/17 12:33:00 CDT, Duration: 30 day, Stop date: 07/28/17 12:32:00 CDTNotes: (Same as: BD Posiflush) Inactive 06/28/2017 [facility] Accu-Chek Aide Plus Blood Glucose Test Strips 1 ea, MISC, TID, Use for blood glucose monitoring., # 100 ea, Not insulin dependent, Does not use insulin pump, Last DM eval date 06/28/17, 11 Refill(s) Active 06/28/2017 [facility] Lactulose 667 MG/ML Oral Solution 10 gm=15 mL, PO, Daily, PRN constipation, X 5 day, # 75 mL, 0 Refill(s) Active 05/06/2016 [facility] POLYETHYLENE GLYCOL 3350 142 MG/ML Oral Solution [Miralax] 17 gm, PO, Bedtime, PRN Constipation, Dissolve in 8 oz. of water, X 10 day, # 255 gm, 1 Refill(s) Active 05/06/2016 [facility] POLYETHYLENE GLYCOL 3350 142 MG/ML Oral Solution [Miralax] 17 gm, PO, Bedtime, Dissolve in 8 oz. of water, X 7 day, # 1 ea, 1 Refill(s), Pharmacy: [facility] Active 05/06/2016 [facility] Allergies, Adverse Reactions, Alerts Substance Category Reaction Severity Reaction type Status Date Reported Comments Source Immunizations Immunization Date Given Site Status Last Updated Comments Source diphtheria/pertussis, acel/tetanus adult<sup>1</sup> 09/12/2017 Left deltoid completed [facility] Result Comment: PATIENT WAITED 15 MINUTES AND HAD NO REACTION. Medical [facility], CATHY [place] pneumococcal 13-valent vaccine 12/05/2016 completed Cara [facility] CATHY [place] pneumococcal 23-valent vaccine 05/13/2015 Left Deltoid completed Cristine CATHY Zhong CATH[facility] [place] pneumococcal 23-valent vaccine 05/13/2015 Left Deltoid completed [facility] 05/13/2015 Left Deltoid completed Cristine CATHY Zhong [place] pneumococcal 23-valent vaccine 05/13/2015 completed Cara [facility], CATHY [place] Results Order Name Results Value Reference Range [...] for the exam is 0.718 g/cm2. The T- score is -1.60 and the Z-score is -0.10. This matches the World Health Organization's criteria for osteopenia and places the patient at a medium risk for fracture. An additional bone density evaluation was performed 10/11/2017 on the right total femur area using a Hologic unit. The BMD average for the exam is 0.905 g/cm2. The T-score is -0.80 and the Z-score is 0.10. This matches the World Health Organization's criteria for normal bone density and places the patient within normal limits of fracture risk. An additional bone density evaluation was performed 10/11/2017 on the left total femur area using a Hologic unit. The BMD average for the exam is 0.957 g/cm2. The T-score is -0.50 and the Z-score is 0.40. This matches the World Health Organization's criteria for normal bone density and places the patient within normal limits of fracture risk. An additional bone density evaluation was performed 10/11/2017 on the AP L1-L4 region of spine using a Hologic unit. The BMD average for the exam is 0.920 g/cm2. The T-score is -1.60 and the Z-score is -0.40. This matches the World Health Organization's criteria for osteopenia and places the patient at a medium risk for fracture. IMPRESSION: OSTEOPENIA Patient is at medium risk for fracture. This exam was interpreted at [id number] for KAITY Del Toro 15. Rommel Bolton M.D., cm/kathrin:10/11/2017 11:22:32 Plastics Patternmaker(s): Maryann Valiente [facility] 10/11/2017 - - Read by: Kai Beaver MD Dictated Date/time: 10/11/17 11:22 Electronically Signed by: Kai Beaver MD 10/11/17 11:22 [facility] [place] URINE AND STOOL UA Sq Epi None Seen 06/28/2017 [facility] URINE AND STOOL UA Urobilinogen <=1.0 mg/dL 0.1 - 1.0 06/28/2017 [facility] URINE AND STOOL UA Bacteria Occasional /HPF None Seen /HPF 06/28/2017 [facility] URINE AND STOOL UA Bili Negative *NA* (06/28/17 1:56 PM) Negative 06/28/2017 [facility] URINE AND STOOL UA Ketones Negative mg/dL Negative mg/dL 06/28/2017 [facility] URINE AND STOOL UA Glucose 150 mg/dL Negative mg/dL 06/28/2017 [facility] URINE AND STOOL UA RBC 5 /HPF 0 - 2 06/28/2017 [facility] URINE AND STOOL UA WBC 1 /HPF 0 - 5 06/28/2017 [facility] URINE AND STOOL UA Leuk Est Negative (06/28/17 1:56 PM) Negative 06/28/2017 [facility] URINE AND STOOL UA Nitrite Negative (06/28/17 1:56 PM) Negative 06/28/2017 [facility] URINE AND STOOL UA Blood Small *ABN* (06/28/17 1:56 PM) Negative 06/28/2017 [facility] URINE AND STOOL UA Protein Negative mg/dL Negative mg/dL 06/28/2017 [facility] URINE AND STOOL UA pH 6.0 5.0 - 8.0 06/28/2017 [facility] URINE AND STOOL UA Spec Grav 1.012 <=1.030 06/28/2017 [facility] URINE AND STOOL UA Turbidity Clear (06/28/17 1:56 PM) Clear 06/28/2017 [facility] URINE AND STOOL UA Color Yellow *NA* (06/28/17 1:56 PM) Yellow 06/28/2017 [facility] CHEM PANEL eGFR 71 mL/min/1.73m2 06/28/2017 Result Comment: The eGFR is calculated [...] from the National Kidney Disease Education Program (NKDEP) which additionally recommends that when the eGFR is used in patients with extremes of body mass index for purposes of drug dosing, the eGFR should be multiplied by the estimated BMI. [facility] CHEM PANEL Alk Phos 61 unit/L 39 - 136 06/28/2017 [facility] CHEM PANEL AST 13 unit/L 0 - 37 06/28/2017 [facility] CHEM PANEL Calcium Lvl 9.8 mg/dL 8.5 - 10.5 06/28/2017 [facility] CHEM PANEL Albumin Lvl 3.6 g/dL 3.5 - 5.0 06/28/2017 [facility] CHEM PANEL Total Protein 7.5 g/dL 6.4 - 8.4 06/28/2017 [facility] CHEM PANEL ALT 21 unit/L 0 - 65 06/28/2017 [facility] CHEM PANEL Bili Total 0.6 mg/dL 0.2 - 1.3 06/28/2017 [facility] CHEM PANEL CO2 32 meq/L 24 - 32 06/28/2017 [facility] CHEM PANEL Chloride Lvl 99 meq/L 95 - 109 06/28/2017 [facility] CHEM PANEL Potassium Lvl 4.4 meq/L 3.5 - 5.1 06/28/2017 [facility] CHEM PANEL Sodium Lvl 139 meq/L 135 - 145 06/28/2017 [facility] CHEM PANEL Creatinine Lvl 1.01 mg/dL 0.50 - 1.40 06/28/2017 [facility] CHEM PANEL Glucose Lvl 225 mg/dL 70 - 99 06/28/2017 [facility] CHEM PANEL BUN 14 mg/dL 7 - 22 06/28/2017 [facility] CHEM PANEL AGAP 12.4 meq/L 10.0 - 20.0 06/28/2017 [facility] CHEM PANEL A/G Ratio 0.9 0.7 - 1.6 06/28/2017 [facility] CHEM PANEL Globulin 3.9 g/dL 2.7 - 4.2 06/28/2017 [facility] CHEM PANEL B/C Ratio 14 6 - 25 06/28/2017 [facility] CHEM PANEL Magnesium Lvl 2.0 mg/dL 1.8 - 2.4 06/28/2017 [facility] CHEM PANEL Lipase Lvl 141 unit/L 73 - 393 06/28/2017 [facility] CHEM PANEL Phosphorus 3.1 mg/dL 2.5 - 4.5 06/28/2017 [facility] HEMATOLOGY Basophils 1.0 % 0.0 - 1.0 06/28/2017 [facility] HEMATOLOGY Segs-Bands # 3.9 K/CMM 1.5 - 8.1 06/28/2017 [facility] HEMATOLOGY Basophils # 0.1 K/CMM 0.0 - 0.2 06/28/2017 [facility] HEMATOLOGY Lymphocytes # 1.3 K/CMM 1.0 - 5.5 06/28/2017 [facility] HEMATOLOGY Eosinophils # 0.2 K/CMM 0.0 - 0.5 06/28/2017 [facility] Monocytes # 1.2 K/CMM 0.0 - 0.8 06/28/2017 [facility] Lymphocytes 20.0 % 20.0 - 40.0 06/28/2017 [facility] Monocytes 18.4 % 2.0 - 12.0 06/28/2017 [facility] Eosinophils 2.9 % 0.0 - 4.0 06/28/2017 [facility] Segs 57.7 % 45.0 - 75.0 06/28/2017 [facility] Platelet 198 K/CMM 133 - 450 06/28/2017 [facility] MPV 9.2 fL 7.4 - 10.4 06/28/2017 [facility] WBC 6.7 K/CMM 3.7 - 10.4 06/28/2017 [facility] MCHC 34.3 g/dL 32.0 - 36.0 06/28/2017 [facility] RDW 12.6 % 11.5 - 14.5 06/28/2017 [facility] MCV 91.5 fL 80.0 - 94.0 06/28/2017 [facility] RBC 4.80 M/CMM 4.70 - 6.10 06/28/2017 [facility] Hgb 15.1 g/dL 14.0 - 18.0 06/28/2017 [facility] Hct 43.9 % 42.0 - 54.0 06/28/2017 [facility] MCH 31.4 pg 27.0 - 31.0 06/28/2017 [facility] Chest 1view DX Chest 1view DX [...] Electronically Signed by: Vibha Jaime MD 06/28/17 15:28 FINAL REPORT [facility] Abdomen/Pelvis w IV contrast CT Abdomen/Pelvis [...] Electronically Signed by: Carter Hardy MD 06/28/17 14:54 FINAL REPORT [facility] Spine lumbar wo contrast CT Spine lumbar wo contrast CT Patient Name: FRANCE SCHAEFER : 1940; Age: 75 years Male MR: [id number] Study: Spine lumbar wo contrast CT 05/23/2016 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 The degree of [...] of the lumbar spine as described. 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 The degree of [...] of the lumbar spine as described. SL: [id number] 05/23/2016 - - Read by: Jessica Barragan MD Dictated Date/time: 05/24/16 09:09 Electronically Signed by: Jessica Barragan MD 05/24/16 09:17 FINAL REPORT [facility] URINE AND STOOL UA Blood Small *ABN* (05/05/16 10:57 PM) Negative 05/06/2016 [facility] URINE AND STOOL UA Nitrite Negative (05/05/16 10:57 PM) Negative 05/06/2016 [facility] URINE AND STOOL UA Glucose Negative mg/dL Negative mg/dL 05/06/2016 [facility] URINE AND STOOL UA WBC 1 /HPF 0 - 5 05/06/2016 [facility] URINE AND STOOL UA RBC 1 /HPF 0 - 2 05/06/2016 [facility] URINE AND STOOL UA Sq Epi None Seen 05/06/2016 [facility] URINE AND STOOL UA Leuk Est Negative (05/05/16 10:57 PM) Negative 05/06/2016 [facility] URINE AND STOOL UA Turbidity Clear (05/05/16 10:57 PM) Clear 05/06/2016 [facility] URINE AND STOOL UA Spec Grav 1.008 <=1.030 05/06/2016 [facility] URINE AND STOOL UA pH 7.0 5.0 - 8.0 05/06/2016 [facility] URINE AND STOOL UA Protein Negative mg/dL Negative mg/dL 05/06/2016 [facility] URINE AND STOOL UA Urobilinogen <=1.0 mg/dL 0.1 - 1.0 05/06/2016 [facility] URINE AND STOOL UA Color Ltyellow 05/06/2016 [facility] URINE AND STOOL UA Ketones Negative mg/dL Negative mg/dL 05/06/2016 [facility] URINE AND STOOL UA Bili Negative *NA* (05/05/16 10:57 PM) Negative 05/06/2016 [facility] CHEM PANEL eGFR 65 mL/min/1.73m2 05/05/2016 Result Comment: The eGFR is calculated [...] from the National Kidney Disease Education Program (NKDEP) which additionally recommends that when the eGFR is used in patients with extremes of body mass index for purposes of drug dosing, the eGFR should be multiplied by the estimated BMI. [facility] CHEM PANEL Bili Total 0.4 mg/dL 0.2 - 1.3 05/05/2016 [facility] CHEM PANEL Alk Phos 74 unit/L 39 - 136 05/05/2016 [facility] CHEM PANEL AST 18 unit/L 0 - 37 05/05/2016 [facility] CHEM PANEL ALT 32 unit/L 0 - 65 05/05/2016 [facility] CHEM PANEL Calcium Lvl 9.4 mg/dL 8.5 - 10.5 05/05/2016 [facility] CHEM PANEL Total Protein 7.8 g/dL 6.4 - 8.4 05/05/2016 [facility] CHEM PANEL Albumin Lvl 4.3 g/dL 3.5 - 5.0 05/05/2016 [facility] CHEM PANEL Glucose Lvl 109 mg/dL 70 - 99 05/05/2016 [facility] CHEM PANEL Chloride Lvl 96 meq/L 95 - 109 05/05/2016 [facility] CHEM PANEL CO2 32 meq/L 24 - 32 05/05/2016 [facility] CHEM PANEL Potassium Lvl 4.0 meq/L 3.5 - 5.1 05/05/2016 [facility] CHEM PANEL Creatinine Lvl 1.10 mg/dL 0.50 - 1.40 05/05/2016 [facility] CHEM PANEL Sodium Lvl 136 meq/L 135 - 145 05/05/2016 [facility] CHEM PANEL BUN 18 mg/dL 7 - 22 05/05/2016 [facility] CHEM PANEL B/C Ratio 16 6 - 25 05/05/2016 [facility] CHEM PANEL Globulin 3.5 g/dL 2.7 - 4.2 05/05/2016 [facility] CHEM PANEL A/G Ratio 1.2 0.7 - 1.6 05/05/2016 [facility] CHEM PANEL AGAP 12.0 meq/L 10.0 - 20.0 05/05/2016 [facility] MCV 88.3 fL 80.0 - 94.0 05/05/2016 [facility] Platelet 266 K/CMM 133 - 450 05/05/2016 [facility] Hct 42.8 % 42.0 - 54.0 05/05/2016 [facility] RDW 12.9 % 11.5 - 14.5 05/05/2016 [facility] MCHC 35.1 g/dL 32.0 - 36.0 05/05/2016 [facility] MCH 30.9 pg 27.0 - 31.0 05/05/2016 [facility] MPV 8.0 fL 7.4 - 10.4 05/05/2016 [facility] WBC 7.7 K/CMM 3.7 - 10.4 05/05/2016 [facility] Hgb 15.0 g/dL 14.0 - 18.0 05/05/2016 [facility] RBC 4.85 M/CMM 4.70 - 6.10 05/05/2016 [facility] Lymphocytes 27.2 % 20.0 - 40.0 05/05/2016 [facility] Segs 57.8 % 45.0 - 75.0 05/05/2016 [facility] HEMATOLOGY Eosinophils # 0.4 K/CMM 0.0 - 0.5 05/05/2016 [facility] HEMATOLOGY Monocytes # 0.7 K/CMM 0.0 - 0.8 05/05/2016 [facility] Basophils # 0.1 K/CMM 0.0 - 0.2 05/05/2016 [facility] Basophils 1.1 % 0.0 - 1.0 05/05/2016 [facility] Eosinophils 4.6 % 0.0 - 4.0 05/05/2016 [facility] Monocytes 9.3 % 2.0 - 12.0 05/05/2016 [facility] Segs-Bands # 4.4 K/CMM 1.5 - 8.1 05/05/2016 [facility] Lymphocytes # 2.1 K/CMM 1.0 - 5.5 05/05/2016 [facility] Abdomen/Pelvis w IV contrast CT Abdomen/Pelvis w IV contrast CT Patient Name: FRANCE SCHAEFER : 1940; Age: 75 years y/o Male MR: [id number] Study: Abdomen/Pelvis w IV contrast CT 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 There is facet arthropathy at [...] Electronically Signed by: Desmond Varner MD 04/28/16 15:46 FINAL REPORT [facility] Scrotal/Testicle w Doppler US Scrotal/Testicle w [...] epididymal tail. 5. Small right hydrocele. SL: [id number] 08/06/2015 - - Read by: All Campbell MD Dictated Date/time: 08/06/15 10:32 Electronically Signed by: All Campbell MD 08/06/15 10:36 FINAL REPORT [facility] [place] Bone Density DXA [employer] MA Bone Density [employer] MA - Bone Density [employer] MA MALE BONE DENSITY EVALUATION: 05/26/2015 RISK FACTORS: race. COMPARISON: 01/03/2013 Left total femur area using a Hologic unit from [facility] with reported normal fracture risk, BMD of 0.913g/cm2 and T-score of -0.80. 01/03/2013 Left femur neck using a Hologic unit from [facility] with reported medium fracture risk, BMD of 0.774g/cm2, T-score of -1.10 and Z- score of 0.10. 01/03/2013 AP L1-L4 region of spine using a Hologic unit from [facility] with reported high fracture risk, BMD of 0.809g/cm2, T-score of -2.60 and Z-score of -1.60. FINDINGS: Bone density evaluation was performed 05/26/2015 on the AP L1-L4 region of spine using a Hologic unit. The BMD average for the exam is 0.874 g/cm2. The T-score is -2.00 and the Z-score is -0.90. Since the previous similar exam of 01/03/2013, there has been a +0.065 or +8.0% [...] BMD average for the exam is 0.865 g/cm2. The T-score is -1.10 and the Z-score is -0.30. This matches the World Health Organization's criteria for osteopenia and places the patient at a medium risk for fracture. An additional bone density evaluation was performed 05/26/2015 on the left femur neck using a Hologic unit. The BMD average for the exam is 0.796 g/cm2. The T- score is -1.00 and the Z-score is 0.40. [...] BMD average for the exam is 0.926 g/cm2. The T-score is -0.70 and the Z-score [...] This exam was dictated and interpreted by [id number] for KAITY Del Toro 15. Rommel Bolton M.D. cm/penrad:05/29/2015 09:50:26 [employer] Patternmaker: Darin GLOVER [facility] 05/26/2015 - - Read by: Kai Beaver MD Dictated Date/time: 05/29/15 09:50 Electronically Signed by: Kai Beaver MD 05/29/15 09:50 FINAL REPORT [facility] Elbow 2 views [...] tissue swelling. No acute osseous abnormality. SL: Perla 10/27/2014 - - Read by: Chico Amado MD Dictated Date/time: 10/27/14 13:12 Electronically Signed by: Chico Amado 10/27/14 13:13 FINAL REPORT [facility] Vital Signs Vital Sign Value Date Comments Source Height 172.72 cm 10/03/[facility] BMI Calculated 28.36 10/03/2017 [facility] Weight 84.602 10/03/2017 [facility] Heart Rate 56 10/03/2017 [facility] Temperature Oral (F) 97.6 F 10/03/2017 [facility] Systolic (mm Hg) 165 10/03/2017 [facility] Diastolic (mm Hg) 75 10/03/2017 [facility] Systolic (mm Hg) 144 09/12/2017 [facility] Diastolic (mm Hg) 73 09/12/2017 [facility] Temperature Oral (F) 98.2 F 09/12/2017 [facility] Heart Rate 62 09/12/2017 [facility] Weight 85.455 09/12/2017 [facility] BMI Calculated 28.65 09/12/2017 [facility] Height 172.72 cm 09/12/2017 [facility] Temperature Oral (F) 97.4 F 06/28/2017 [facility] Systolic (mm Hg) 164 06/28/2017 [facility] Diastolic (mm Hg) 82 06/28/2017 [facility] Respitory Rate 15 06/28/2017 [facility] Systolic (mm Hg) 161 06/28/2017 [facility] Diastolic (mm Hg) 83 06/28/2017 [facility] Respitory Rate 12 06/28/2017 [facility] Systolic (mm Hg) 147 06/28/2017 [facility] Diastolic (mm Hg) 81 06/28/2017 [facility] Respitory Rate 23 06/28/2017 [facility] Weight 81.818 06/28/2017 [facility] Height 172.72 cm 06/28/2017 [facility] BMI Calculated 27.43 06/28/2017 [facility] Temperature Oral (F) 97.9 F 06/28/2017 [facility] Heart Rate 66 06/28/2017 [facility] Systolic (mm Hg) 134 06/28/2017 [facility] Diastolic (mm Hg) 80 06/28/2017 [facility] Heart Rate 64 06/28/2017 [facility] Temperature Oral (F) 98.0 F 06/28/2017 [facility] BMI Calculated 28.67 06/28/2017 [facility] Weight 85.54 06/28/2017 [facility] Height 172.72 cm 06/28/2017 [facility] Heart Rate 70 05/06/2016 [facility] Respitory Rate 20 05/06/2016 [facility] Systolic (mm Hg) 147 05/06/2016 [facility] Diastolic (mm Hg) 82 05/06/2016 [facility] Temperature Oral (F) 98.2 F 05/06/2016 [facility] Systolic (mm Hg) 160 05/06/2016 [facility] Diastolic (mm Hg) 77 05/06/2016 [facility] Temperature Oral (F) 98.0 F 05/06/2016 [facility] Heart Rate 68 05/06/2016 [facility] Respitory Rate 20 05/06/2016 [facility] Systolic (mm Hg) 197 05/06/2016 [facility] Diastolic (mm Hg) 101 05/06/2016 [facility] Heart Rate 64 05/06/2016 [facility] Respitory Rate 20 05/06/2016 [facility] Temperature Oral (F) 98.0 F 05/06/2016 [facility] Height 172.72 cm 05/05/2016 [facility] BMI Calculated 28.04 05/05/2016 [facility] Weight 83.636 05/05/2016 [facility] Encounters Location Location Details Encounter Type Encounter Number Reason For Visit Attending Provider ADM Date DC Date Status Source Outpatient [id number] FERNIE THOMSON 10/27/2014 Active [facility] Outpatient [id number] ALEXA LAUREN- SERGO 11/10/2014 Active [facility] Outpatient [id number] ALEXA LAUREN- GOR 05/13/2015 Active [facility] [place] [facility] [id number] Alexa Lauren-Gor 05/26/2015 05/27/2015 [facility] [place] Outpatient [id number] ALEXA LAUREN- GOR 08/05/2015 Active [facility] [place] [facility] [id number] Alexa Lauren-Gor 08/06/2015 08/07/2015 [facility] [place] Outpatient [id number] ALEXA LAUREN- GOR 11/11/2015 Active [facility] Outpatient [id number] BOBBY FAGAN 01/27/2016 Active [facility] Outpatient [id number] BOBBY FAGAN 02/01/2016 Active [facility] Outpatient [id number] MAGDALENE CORA- PRATT 04/27/2016 Active [facility] [place] [facility] [id number] Magdalene Cora-Pratt 04/28/2016 04/29/2016 [facility] [place] Outpatient [id number] ALEXA LAUREN- GOR 05/02/2016 Active [facility] Emergency [id number] Angelina Miller 05/05/2016 05/06/2016 [facility] Outpatient [id number] MELANIE ALMAGUER 05/18/2016 Active [facility] Outpatient [id number] Leif Danis 05/23/2016 05/24/2016 [facility] Outpatient [id number] LEIF DANIS 05/31/2016 Active [facility] Outpatient [id number] LEIF DANIS 07/05/2016 Active [facility] Outpatient [id number] NURSE VISIT 06/28/2017 Active [facility] Outpatient [id number] LATESHA ACE 06/28/2017 [facility] [id number] 06/28/2017 06/28/2017 [facility] Outpatient [id number] Latesha Ace 06/28/2017 06/29/2017 [facility] Emergency [id number] Refugio Obando 06/28/2017 06/28/2017 [facility] Phone Message [id number] 07/03/2017 07/05/2017 [facility] Phone Message [id number] 07/06/2017 07/08/2017 [facility] Phone Message [id number] 07/12/2017 07/14/2017 [facility] Outpatient [id number] NURSE VISIT 09/12/2017 Active [facility] Outpatient [id number] NURSE VISIT 09/12/2017 [facility] [id number] Latesha Ace 09/12/2017 09/13/2017 [facility]ulatory Pre-Reg [id number] 09/12/2017 09/12/2017 [facility] Outpatient [id number] LATESHA ACE 10/03/2017 Active [facility] Outpatient [id number] Latesha Ace 10/03/2017 10/04/2017 [facility] [place] [facility] [id number] Latesha Ace 10/11/2017 10/12/2017 [facility] [place] Outpatient [id number] LATESHA CAE 11/02/2017 Active [facility] Outpatient [id number] LATESHA ACE 11/21/2017 Active [facility] Outpatient [id number] LATESHA ACE 11/24/2017 Active [facility] Outpatient [id number] LATESHA ACE 02/02/2018 Active [facility] Outpatient [id number] MAGDALENE PRATT 05/21/2018 Active [facility] Outpatient [id number] [facility] 05/24/2018 Active [facility] Procedures Procedure Code Date Perfomer Comments Source Endoscopic prostatectomy [id number] [facility] [place] Functional endoscopic sinus surgery - anterior ethmoidectomy and frontal recess dissection [id number] [facility] [place] Hemorrhoidectomy [id number] [facility] [place] Tonsillectomy [id number] [facility] [place] Triple coronary bypass [id number] [facility] [place] Endoscopic prostatectomy [id number] [facility] [place] Functional endoscopic sinus surgery - anterior ethmoidectomy and frontal recess dissection [id number] [facility] [place] Hemorrhoidectomy [id number] [facility] [place] Tonsillectomy [id number] [facility] [place] Triple coronary bypass [id number] [facility] [place] Endoscopic prostatectomy [id number] [facility] Functional endoscopic sinus surgery - anterior ethmoidectomy and frontal recess dissection [id number] [facility] Hemorrhoidectomy [id number] [facility] Tonsillectomy [id number] [facility] Triple coronary bypass [id number] [facility] Endoscopic prostatectomy [id number] [facility] Functional endoscopic sinus surgery - anterior ethmoidectomy and frontal recess dissection [id number] [facility] Hemor[facility] [id number] [facility] Tonsillectomy [id number] [facility] Triple coronary bypass [id number] [facility]
[2018-05-09 07:15] LABS: INR 0.92; PROTHROMBIN TIME 13.2 seconds (11.9-14.5)
[2018-05-09 10:35] VITALS: BP 149/64
--- NOTE | 2018-05-20 19:59 | Operative Report ---
DATE OF PROCEDURE: 05/09/2018 SURGEON: Sacha Watkins MD PREOPERATIVE DIAGNOSES: 1. Chronic left epididymo-orchitis with chronic pain. 2. Refractory urge incontinence. 3. History of urinary tract infections. POSTOPERATIVE DIAGNOSES: 1. Chronic left epididymo-orchitis with chronic pain. 2. Refractory urge incontinence. 3. History of urinary tract infections. OPERATIONS PERFORMED: 1. Left orchiectomy (surgery performed for epididymal orchitis). 2. Regional nerve block (several procedures performed for postoperative pain control and not required for the actual performance of the surgery, which was done under general anesthesia). 3. Cystourethroscopy with bilateral ureteral catheterization and retrograde ureteropyelography (surgery performed for the urinary tract infections). 4. Interpretation of retrograde ureteropyelography. 5. Supervision of fluoroscopy, no radiologist present. 6. Cystourethroscopy with intravesical injection of Botox (surgery performed for the refractory incontinence). ANESTHESIA: General. COMPLICATIONS: None. CLINICAL SUMMARY: Wilmer Ray is a 77-year-old man, who is many years status post radical perineal prostatectomy. The patient was lost to follow up for quite some time and then re-established followup following episode of hematuria. He was also found to have a history of urinary tract infections. He desires to proceed with Botox injections in hopes of controlling his incontinence. The patient also has chronic left epididymo-orchitis with chronic left testicular pain and he desires orchiectomy to manage that pain. He is aware of the risks of bleeding, infection, injury to adjacent structures, need for additional procedures and elected to proceed. He also understands the increased risk of bleeding due to his chronic anticoagulation. The patient has undergone a Lovenox bridge to manage his anticoagulants. OPERATIVE PROCEDURE IN DETAIL: Informed consent was verified. Wilmer Ray was properly identified, taken to the operating room, and placed on the cystoscopy table in supine position. Anesthesia was uneventfully begun. The patient's genitalia were then shaved, prepped, and draped in usual sterile fashion. A left scrotal neck incision was made, carried through all layers of the scrotum until we reached the spermatic cord. Spermatic cord was isolated, it was divided into 2 main packets. Each packet underwent separate suture ligature as well as a freehand tie proximal to the suture ligature. Once this was performed, spermatic cord was divided and the testis and spermatic cord remnant were removed from the field. There was no evidence of any bleeding. There was perfect hemostasis noted. Marcaine was utilized to infiltrate the spermatic cord proximal to the region of dissection. This regional nerve block was done for postoperative pain control and not required for the actual performances of surgery, which was done under general anesthesia. We circumferentially infiltrated the incision with Marcaine. Following this, we copiously irrigated and verified hemostasis. The patient's incision was then approximated in 2 layers utilizing chromic suture in running fashion. The patient was carefully and gently repositioned in dorsal lithotomy position. All pressure points well padded. His genitalia were prepared and draped in usual sterile fashion. A 22.5-Indonesian cystoscope sheath with the visual obturator in place was atraumatically inserted into the patient's urethra. It was guided unremarkably in urethra through the normal sphincteric region through the wide-open urethrovesical anastomosis and into the patient's bladder. Panendoscopy revealed trabeculations, but no tumors, no stones, no diverticula. Normally positioned and configured ureteral orifices were identified. A ureteral catheter was used to cannulate each ureter and retrograde ureteral pyelograms were performed. Interpretation of retrograde ureteropyelography contrast was instilled in retrograde fashion bilaterally. There were no tumors, no stones, no diverticula. Unobstructed drainage was observed bilaterally fluoroscopically. Botox was dissolved in saline, it was then injected in 0.5 to 1 mL aliquots in an even distribution throughout the supratrigonal bladder. No bleeding was encountered. The patient's bladder was drained and cystoscope was withdrawn. Sterile dressings were applied along with scrotal support and the patient was uneventfully reversed from anesthesia and taken to recovery room in stable condition. There were no complications during the procedure. He tolerated the procedure well. Sponge, needle, and instrument count were of course correct x2 at the end of the case. Estimated blood loss was minimal. Expressive postop instructions were given. We will follow the patient up in the office. Sacha Watkins MD [facility] /[id number]
== END | disposition home or self-care (01) ==
LOC: OR 06:16
PROVIDERS: ATTEND Urology
DX: N45.3 Epididymo-orchitis (principal); G89.29 Other chronic pain; N39.41 Urge incontinence; Z87.440 Personal history of urinary (tract) infections; I10 Essential (primary) hypertension; E11.9 Type 2 diabetes mellitus without complications; Z79.84 Long term (current) use of oral hypoglycemic drugs; Z01.810 Encounter for preprocedural cardiovascular examination; I48.91 Unspecified atrial fibrillation; I25.10 Atherosclerotic heart disease of native coronary artery without angina pectoris; Z95.1 Presence of aortocoronary bypass graft; E78.5 Hyperlipidemia, unspecified; E03.9 Hypothyroidism, unspecified; Z85.46 Personal history of malignant neoplasm of prostate; Z90.79 Acquired absence of other genital organ(s); Z79.01 Long term (current) use of anticoagulants; Z87.891 Personal history of nicotine dependence
CPT/HCPCS: 36415; 52005; 52287; 54520; 74420; 82948; 85610; 85730; 88305; 93005; C1758; J0587; J0690; J1100; J1885; J2001; J2250; J2405; J2704; Q9967

== ENCOUNTER 2018-05-20 09:29 | Inpatient (IN) | payer MEDICARE ==
[~2018-05-20] VITALS: Ht 172.7 cm; Wt 83.0 kg
[~2018-05-20 09:29] MED LIST changes: -BELLADONNA/OPIUM 30 MG SUPP RC ONE; -BOTULINUM TOXIN TYPE A 100 UNIT VIAL IM ONE; -BUPIVACAINE 0.25% 30ML SDV INJ ONE; -BUPIVACAINE 0.5%/EPI 30 ML SDV INJ ONE; -CEFAZOLIN SOD 1 GM/NS 50ML 50 ML IV ONE; -DEXAMETHASONE SOD PHOS INJ 4 MG/ML VIAL ONE; -FENTANYL CITRATE/PF 100MCG/2 ML INJ ONE; -IOPAMIDOL 610MG/1ML 300 MG/ML VIAL IV ONE; -KETOROLAC TROMETHAMINE 30 MG/ML VIAL ONE; -LIDOCAINE HCL 2% LOCAL INJ 5 ML SDV VIAL INJ ONE; -MIDAZOLAM HCL 2 MG/2 ML VIAL ONE; -ONDANSETRON HCL INJ 2MG/ML 2ML 2 MG/ML VIAL ONE; -PROPOFOL IV EMULSION 10 MG/ML 20 ML VIAL ONE; -SEVOFLURANE INHAL SOLN 250 ML PEN BTL ONE; -SULFAMETHOXAZO1 EAC1 PO; -TYLENOL # 31 EA PO
--- NOTE | 2018-05-20 10:00 | NUR ---
Pt assisted to the restroom to obtain UA, unsuccessful attempt at this time. Pt notified of straight cath intervention if urine in unable to be obtained.
[2018-05-20] MEDS ORDERED: ONDANSETRON HCL INJ 2MG/ML 2ML 2 MG/ML VIAL IV PRN (10:45)
[2018-05-20] MEDS ORDERED: MORPHINE SULFATE 2 MG/ML SYR 1ML IV PRN (10:45)
[2018-05-20 10:49] LABS: BASOPHILS # (AUTO) 0.1 (0.0-0.1); BASOPHILS % 0.8 % (0.0-1.0); EOSINOPHILS # (AUTO) 0.1 (0.0-0.4); EOSINOPHILS % 0.9 % (0.0-6.0); HEMATOCRIT 41.3 % (38.2-49.6); HEMOGLOBIN 14.2 g/dL (14.0-18.0); LYMPHOCYTES # (AUTO) 1.3 (1.0-3.2); LYMPHOCYTES % 11.7 % (18.0-39.1); MEAN CORPUSCULAR HEMOGLOBIN 30.9 pg (28-32); MEAN CORPUSCULAR HGB CONC 34.4 g/dL (31-35); MONOCYTES # (AUTO) 0.8 (0.2-0.8); NEUTROPHILS # (AUTO) 8.9 (2.1-6.9); NEUTROPHILS % 79.1 % (38.7-80.0); PLATELET COUNT 251 x10e3/uL (140-360); RED BLOOD COUNT 4.59 x10e6/uL (4.3-5.7); RED CELL DISTRIBUTION WIDTH 11.8 % (11.7-14.4)
[2018-05-20 11:01] LABS: INR 1.51; PROTHROMBIN TIME 18.8 seconds (11.9-14.5)
[2018-05-20 11:11] LABS: ALANINE AMINOTRANSFERASE 34 IU/L (0-55); ALBUMIN 4.2 g/dL (3.5-5.0); ALBUMIN/GLOBULIN RATIO 1.2 (0.8-2.0); ALKALINE PHOSPHATASE 94 IU/L (40-150); ANION GAP 13.9 mmol/L (8-16); BLOOD UREA NITROGEN 12 mg/dL (7-26); BUN/CREATININE RATIO 11 (6-25); CALCIUM 10.2 mg/dL (8.4-10.2); CARBON DIOXIDE 25 mmol/L (22-29); CHLORIDE 99 mmol/L (98-107); CREATININE, SERUM 1.05 mg/dL (0.72-1.25); EST GLOMERULAR FILTRATION RATE > 60 ML/MIN (60-); GLUCOSE 165 mg/dL (74-118); POTASSIUM 3.9 mmol/L (3.5-5.1); SODIUM 134 mmol/L (136-145)
--- NOTE | 2018-05-20 11:16 | NUR ---
Pt noted to be resting comfortably in bed with eyes closed at this time.
[2018-05-20 11:21] LABS: CLARITY,URINE CLEAR (CLEAR); COLOR,URINE YELLOW (YELLOW); KETONES,URINE NEGATIVE (NEGATIVE); LEUKOCYTE ESTERASE ,URINE NEGATIVE (NEGATIVE); NITRITE,URINE NEGATIVE (NEGATIVE); PROTEIN,URINE DIPSTICK NEGATIVE (NEGATIVE)
[2018-05-20] MEDS ORDERED: SULFAMETHOXAZO1 EAC1 PO (11:21)
[2018-05-20 11:22] LABS: BILIRUBIN,URINE NEGATIVE (NEGATIVE); URINE UROBILINOGEN 0.2 mg/dL (0.2 - 1)
[2018-05-20] MEDS ORDERED: TYLENOL # 31 EA PO (11:23)
[2018-05-20] MEDS ORDERED: CLINDAMYCIN 600MG / 50ML 50 ML IV ONE (11:30)
--- NOTE | 2018-05-20 11:34 | NUR ---
Pt informed of pain medication ordered, pt refuses pain medication at this time.
[2018-05-20] MEDS ORDERED: SODIUM CHLORIDE 0.9% 250ML 250 ML IV ONE (12:15)
--- NOTE | 2018-05-20 12:30 | NUR ---
ARRIVED VIA WC FROM ER, AA&OX3, RA, PT C/O INTERMITTENT SOB WITH MOVEMENT, 02 PER PROTOCOL PLACED, PT STATES "BETTER", ORIENTED TO ROOM AND CALL LIGHT SYSTEM, FAMILY AT SIDE, CALL LIGHT WITHIN REACH
[2018-05-20 12:33] VITALS: BP 158/77
[2018-05-20] MEDS ORDERED: DEXTROSE 50% SYRINGE 50 ML IV PRN (13:45)
[2018-05-20] MEDS ORDERED: DOCUSATE SODIUM 100 MG CAP PO PRN (14:00)
--- NOTE | 2018-05-20 14:00 | NUR ---
TELFA WITH 4X4 GAUZE APPLIED TO LEFT SCROTAL AREA, MESH UNDERWEAR APPLIED, PT TOLERATED WELL
[2018-05-20 14:06] VITALS: BP 158/77
[2018-05-20 14:19] VITALS: BP 158/77
--- NOTE | 2018-05-20 14:21 | NUR ---
SPOKE WITH MD KEITA, AWARE OF CONSULT, AGREED TO NPO AFTER MN, NO OTHER ORDERS, SPOKE WITH MD DEVRIES, MADE AWARE OF NEW PT, HOME MEDICATIONS REVIEWED, ORDERS NOTED
[2018-05-20] MEDS: ACETAMINOPHEN/CODEINE 300MG - 30MG TAB PO PRN ×2 (14:39→21:23)
[2018-05-20 15:28] VITALS: BP 133/77
[2018-05-20] MEDS: INSULIN LISPRO 100 UNIT/1 ML 3ML VIAL SQ SCH ×2 (17:03→20:07)
--- NOTE | 2018-05-20 17:36 | NUR ---
WITH STANDBY ASSIST AND USE OF JERRY POTTER OOB TO BR CALL STRING WITHIN REACH Addendum: 05/20/18 at 1739 by Maria Guadalupe Patel RN PT DENIES DIZZINESS AT THIS TIME, INTERMITTENT DIZZINESS EARLIER IN THE DAY
--- NOTE | 2018-05-20 19:11 | NUR ---
WALKING ROUNDS PERFORMED, RECEIVED PT LAYING SEMI FOWLERS IN BED, AAOX3, RR EVEN AND NON-LABORED, O2 BY NC AT 2L. DRESSING TO (L) SCROTUM NOTED TO BE SATURATED. EXPLAINED THAT NEW DRESSING WOULD BE APPLIED. LEFT PT LAYING SEMI FOWLERS IN BED, BED IN LOW LOCKED POSITION, SIDE RAILS UPX2, CALL LIGHT AND PHONE WITHIN REACH. AT BEDSIDE.
[2018-05-20 20:00] VITALS: BP 175/78
[2018-05-20 20:07] VITALS: BP 175/78
[2018-05-20] MEDS: PRAVASTATIN 20 MG TAB PO SCH (20:07)
[2018-05-20] MEDS: AMLODIPINE BESYLATE 10 MG TAB PO SCH (20:07)
--- NOTE | 2018-05-20 20:07 | NUR ---
APPLIED TELFA PAD AND 4X4 GAUZE OVER INCISION TO (L) SCROTUM, SECURED WITH MESH UNDERWEAR.
[2018-05-21] VITALS (9 sets, daily range): BP systolic 118–143; BP diastolic 62–92
[2018-05-21] MEDS: LEVOTHYROXINE SODIUM 100 MCG TAB PO SCH (04:43)
--- NOTE | 2018-05-21 06:53 | NUR ---
Patient went to OR at this time.
[2018-05-21] MEDS ORDERED: BUPIVACAINE 0.25%/EPI 30ML SDV INJ ONE (07:11)
[2018-05-21] MEDS: INSULIN LISPRO 100 UNIT/1 ML 3ML VIAL SQ SCH ×4 (07:30→21:00)
--- NOTE | 2018-05-21 08:38 | NUR ---
Patient returned to unit from OR. Patient is post op I&D of left scrotum with a sj drain
[2018-05-21] MEDS: IRBESARTAN 150 MG TAB PO SCH (08:44)
[2018-05-21] MEDS: CALCIUM 600 MG PO SCH (08:44)
[2018-05-21] MEDS ORDERED: HYDROCHLOROTHIAZIDE 25 MG TAB PO SCH (09:00)
--- NOTE | 2018-05-21 09:34 | NUR ---
IMM ON CHART FROM ADMIT 05/20 AT 9:35
[2018-05-21] MEDS: ACETAMINOPHEN/CODEINE 300MG - 30MG TAB PO PRN (10:53)
--- NOTE | 2018-05-21 11:05 | NUR ---
Patient is AAOx3. Patient is post op I&D left scrotal hematoma. Kwan drain in place. Dressing clean and dry. Lung nolan diminished to auscultation. Bowel sounds present x4. No edema noted. Right AC IV in place. No s/s of distress noted. Family at bedside
[2018-05-21] MEDS: CEFAZOLIN SOD 1 GM/NS 50ML 50 ML IV SCH ×2 (13:38→21:11)
--- NOTE | 2018-05-21 14:21 | NUR ---
Patient voided at this time. Changed dressing at this time.
[2018-05-21] MEDS ORDERED: HYDRALAZINE HCL 25 MG TAB PO PRN (17:15)
[2018-05-21] MEDS ORDERED: LIDOCAINE HCL 2% LOCAL INJ 5 ML SDV VIAL INJ ONE (18:10)
[2018-05-21] MEDS ORDERED: ONDANSETRON HCL INJ 2MG/ML 2ML 2 MG/ML VIAL ONE (18:10)
[2018-05-21] MEDS ORDERED: CEFAZOLIN SOD 1 GM VIAL ONE (18:10)
[2018-05-21] MEDS ORDERED: SEVOFLURANE INHAL SOLN 250 ML PEN BTL ONE (18:10)
[2018-05-21] MEDS ORDERED: PROPOFOL IV EMULSION 10 MG/ML 20 ML VIAL ONE (18:10)
[2018-05-21] MEDS ORDERED: FENTANYL CITRATE/PF 100MCG/2 ML INJ ONE (18:23)
[2018-05-21] MEDS: AMLODIPINE BESYLATE 10 MG TAB PO SCH (21:11)
[2018-05-21] MEDS: PRAVASTATIN 20 MG TAB PO SCH (21:11)
[2018-05-22 04:06] VITALS: BP 151/68
[2018-05-22] MEDS: LEVOTHYROXINE SODIUM 100 MCG TAB PO SCH (05:30)
[2018-05-22] MEDS: CEFAZOLIN SOD 1 GM/NS 50ML 50 ML IV SCH ×3 (05:30→21:39)
--- NOTE | 2018-05-22 05:30 | NUR ---
CHANGED DRESSING TO SCROTUM X2.
[2018-05-22 06:08] LABS: BASOPHILS # (AUTO) 0.1 (0.0-0.1); BASOPHILS % 0.7 % (0.0-1.0); EOSINOPHILS # (AUTO) 0.3 (0.0-0.4); EOSINOPHILS % 2.6 % (0.0-6.0); HEMATOCRIT 35.3 % (38.2-49.6); HEMOGLOBIN 12.1 g/dL (14.0-18.0); LYMPHOCYTES # (AUTO) 2.4 (1.0-3.2); LYMPHOCYTES % 23.3 % (18.0-39.1); MEAN CORPUSCULAR HEMOGLOBIN 31.2 pg (28-32); MEAN CORPUSCULAR HGB CONC 34.3 g/dL (31-35); MONOCYTES % 9.9 % (4.4-11.3); NEUTROPHILS # (AUTO) 6.6 (2.1-6.9); PLATELET COUNT 217 x10e3/uL (140-360); RED BLOOD COUNT 3.88 x10e6/uL (4.3-5.7); RED CELL DISTRIBUTION WIDTH 11.7 % (11.7-14.4)
[2018-05-22 06:21] LABS: ANION GAP 11.9 mmol/L (8-16); BLOOD UREA NITROGEN 13 mg/dL (7-26); BUN/CREATININE RATIO 13 (6-25); CARBON DIOXIDE 26 mmol/L (22-29); CHLORIDE 105 mmol/L (98-107); CREATININE, SERUM 0.99 mg/dL (0.72-1.25); EST GLOMERULAR FILTRATION RATE > 60 ML/MIN (60-); GLUCOSE 148 mg/dL (74-118); POTASSIUM 3.9 mmol/L (3.5-5.1); SODIUM 139 mmol/L (136-145)
--- NOTE | 2018-05-22 07:19 | NUR ---
Rcvd patient in report this am. Patient is asleep in bed at this time. Spouse at bedside. No s/s of distress noted
[2018-05-22] MEDS: INSULIN LISPRO 100 UNIT/1 ML 3ML VIAL SQ SCH ×4 (07:30→21:00)
[2018-05-22 08:00] VITALS: BP 164/68
[2018-05-22] MEDS: CALCIUM 600 MG PO SCH (08:56)
[2018-05-22] MEDS: IRBESARTAN 150 MG TAB PO SCH (08:56)
[2018-05-22] MEDS: HYDROCHLOROTHIAZIDE 25 MG TAB PO SCH ×2 (09:00→09:11)
[2018-05-22] MEDS: POTASSIUM CHLORIDE 10MEQ EA PO SCH (09:12)
[2018-05-22 10:00] VITALS: BP 164/68
--- NOTE | 2018-05-22 11:08 | NUR ---
Patient is AAOx3. Patient is post op I&D of left scrotal hematoma. Kwan drain in place. Minimal drainage noted. Dressing changed and clean and dry. No c/o pain. Lung nolan clear to auscultation. Bowel sounds present x4. No edema noted. Patient ambulates with assist. Family at bedside
[2018-05-22 12:00] VITALS: BP 149/63
[2018-05-22 16:22] VITALS: BP 127/62
[2018-05-22 20:00] VITALS: BP 155/74
[2018-05-22] MEDS: PRAVASTATIN 20 MG TAB PO SCH (21:37)
[2018-05-22] MEDS: AMLODIPINE BESYLATE 10 MG TAB PO SCH (21:38)
--- NOTE | 2018-05-22 23:54 | NUR ---
CHANGED DRESSING TO SCROTUM
[2018-05-23] VITALS: BP 159/64
[2018-05-23 04:00] VITALS: BP 108/62
[2018-05-23] MEDS: CEFAZOLIN SOD 1 GM/NS 50ML 50 ML IV SCH (05:12)
[2018-05-23] MEDS: LEVOTHYROXINE SODIUM 100 MCG TAB PO SCH (05:12)
--- NOTE | 2018-05-23 05:12 | NUR ---
DRESSING ON SCROTUM CHANGED AT THIS TIME.
[2018-05-23 06:12] LABS: BASOPHILS # (AUTO) 0.1 (0.0-0.1); EOSINOPHILS # (AUTO) 0.3 (0.0-0.4); EOSINOPHILS % 3.6 % (0.0-6.0); HEMATOCRIT 37.5 % (38.2-49.6); HEMOGLOBIN 13.1 g/dL (14.0-18.0); LYMPHOCYTES # (AUTO) 2.4 (1.0-3.2); LYMPHOCYTES % 26.4 % (18.0-39.1); MEAN CORPUSCULAR HEMOGLOBIN 31.4 pg (28-32); MEAN CORPUSCULAR HGB CONC 34.9 g/dL (31-35); MEAN CORPUSCULAR VOLUME 89.9 fL (81-99); MONOCYTES # (AUTO) 0.9 (0.2-0.8); NEUTROPHILS # (AUTO) 5.4 (2.1-6.9); NEUTROPHILS % 58.7 % (38.7-80.0); PLATELET COUNT 253 x10e3/uL (140-360); RED BLOOD COUNT 4.17 x10e6/uL (4.3-5.7); RED CELL DISTRIBUTION WIDTH 11.6 % (11.7-14.4)
[2018-05-23 06:39] LABS: ANION GAP 13.9 mmol/L (8-16); BLOOD UREA NITROGEN 11 mg/dL (7-26); BUN/CREATININE RATIO 11 (6-25); CALCIUM 9.3 mg/dL (8.4-10.2); CARBON DIOXIDE 26 mmol/L (22-29); CHLORIDE 102 mmol/L (98-107); CREATININE, SERUM 0.97 mg/dL (0.72-1.25); EST GLOMERULAR FILTRATION RATE > 60 ML/MIN (60-); GLUCOSE 160 mg/dL (74-118); POTASSIUM 3.9 mmol/L (3.5-5.1); SODIUM 138 mmol/L (136-145)
[2018-05-23 08:17] VITALS: BP 137/72
[2018-05-23] MEDS: HYDROCHLOROTHIAZIDE 25 MG TAB PO SCH (08:31)
[2018-05-23] MEDS: IRBESARTAN 150 MG TAB PO SCH (08:31)
[2018-05-23] MEDS: POTASSIUM CHLORIDE 10MEQ EA PO SCH (08:32)
[2018-05-23] MEDS: CALCIUM 600 MG PO SCH (08:32)
[2018-05-23] MEDS: INSULIN LISPRO 100 UNIT/1 ML 3ML VIAL SQ SCH ×2 (08:32→12:18)
[2018-05-23] MEDS: ACETAMINOPHEN/CODEINE 300MG - 30MG TAB PO PRN (11:02)
[2018-05-23 11:11] VITALS: BP 137/72
[2018-05-23 12:04] VITALS: BP 123/69
--- NOTE | 2018-05-23 13:18 | NUR ---
CM SPOKE TO PATIENT AND PATIENT AT BEDSIDE REGARDING HOME HEALTH ORDER. PATIENT AND PATIENT CONSENT TO RECEIVING [facility] FOR SN TO EVALUATE AND MONITOR MARIAA DRAIN. PATIENT AND PATIENT GIVEN CHOICE LETTER. PATIENT DELEGATES HIS TO CHOOSE AND SIGN FOR HOME HEALTH AGENCY. PATIENT AGREES WITH [facility] AND SIGNS CHOICE LETTER. CHOICE LETTER PLACED IN CHART. CLINICAL SENT TO: [facility] Address: [address] [place] [address] [address], [place] [address] FAX: [phone] BEDSIDE RN DELMI NOTIFIED
== END 2018-05-23 14:09 | disposition home or self-care (01) | DRG 717 ==
LOC: ER 09:29 → ERHOLD 10:40 → MED/SURG 12:28
PROVIDERS: ADMIT Internal Medicine; ATTEND Internal Medicine
PROC: 0V950ZZ Drainage of Scrotum, Open Approach (ICD-10-PCS; principal; 2018-05-21 07:17)
DX: S30.22XA Contusion of scrotum and testes, initial encounter (principal); E87.1 Hypo-osmolality and hyponatremia; D68.9 Coagulation defect, unspecified; I48.91 Unspecified atrial fibrillation; Z79.01 Long term (current) use of anticoagulants; E78.5 Hyperlipidemia, unspecified; I10 Essential (primary) hypertension; D64.9 Anemia, unspecified; C61 Malignant neoplasm of prostate; N39.41 Urge incontinence; Z86.73 Personal history of transient ischemic attack (TIA), and cerebral infarction without residual deficits; E03.9 Hypothyroidism, unspecified; I25.10 Atherosclerotic heart disease of native coronary artery without angina pectoris; R41.3 Other amnesia; E11.9 Type 2 diabetes mellitus without complications
CPT/HCPCS: 36415; 80048; 80053; 81001; 82948; 83605; 85025; 85610; 86850; 86870; 86880; 86900; 86905; 86920; 86922; 99001; 99283; J0690; J2001; J2405

== ENCOUNTER 2018-05-30 12:01 | Emergency (ER) | payer MEDICARE ==
[~2018-05-30] VITALS: Ht 172.7 cm; Wt 81.6 kg
[~2018-05-30 12:01] MED LIST changes: +SULFAMETHOXAZO1 EAC1 PO; +TYLENOL # 31 EA PO
--- OUTSIDE RECORDS SUMMARY | 2018-05-30 12:05 | XMS REPORT | Continuity of Care Document ---
Author Author [facility] Interface Address Unknown Phone Unavailable Problems Problem Status Onset Date Classification Date Reported Comments Source Age-related osteoporosis without current pathological fracture 10/18/2017 [facility]30/[facility] [place] Bilateral inguinal hernia 06/28/2017 07/01/2017 [facility] Diverticulosis 06/28/2017 07/01/2017 [facility] ABDOMINAL PAIN Active 06/28/2017 [facility] DX: M48.54XA=COLLAPSED VERTEBRA, NOT ELS Active 05/19/2016 [facility] Discharge Diagnosis: Acute constipation 05/05/2016 05/09/2016 [facility] Discharge Diagnosis: Compression fracture of T12 vertebra 05/05/2016 05/09/2016 [facility] Discharge Diagnosis: Hypertension 05/05/2016 05/09/2016 [facility] CONSTIPATION Active 05/05/2016 [facility] M81.8 - OTHER OSTEOPOROSIS WITHOUT CUR Active 05/22/2015 CATHY Allen 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 [facility] Urinary incontinence<sup>13</sup> Active 10/22/2013 Problem 05/01/2016 Data migrated from [employer] on 08/16/14. [facility] [place] Urinary incontinence<sup>13</sup> Active 10/22/2013 Problem 09/15/2017 Data migrated from [employer] on 08/16/14. CATHY Zhong [facility] Urinary incontinence<sup>13</sup> Active 10/22/2013 Problem 07/01/2017 Data migrated from [employer] on 08/16/14. CATHY Zhong,[facility] Urinary incontinence<sup>12</sup> Active 10/22/2013 Problem 05/29/2018 Data migrated from [employer] on 08/16/14. [...] [employer] on 08/16/14. CATHY Zhong, MATIASD [place] Osteoporosis<sup>10</sup> Active 12/26/2012 Problem 05/01/2016 Data migrated from [employer] on 08/16/14. [facility] [place] Smoker<sup>12</sup> Active 12/26/2012 Problem 05/01/2016 Data migrated from [employer] on 08/16/14. [facility] [place] Warfarin therapy started<sup>14</sup> Active 12/26/2012 Problem 05/01/2016 Data migrated from [employer] on 08/16/14. CATHY Zhong, CATHY [place] Coronary arteriosclerosis<sup>1</sup> Active 12/26/2012 Problem 05/29/2018 Data migrated from [employer] on 08/16/14. CATHY Zhong [facility] Hearing loss<sup>5</sup> Active 12/26/2012 Problem 05/29/2018 Data migrated from [employer] on 08/16/14. CATHY Zhong [facility] Hyperlipidemia<sup>6</sup> Active 12/26/2012 Problem 05/29/2018 Data migrated from [employer] on 08/16/14. CATHY Zhong [facility] Hypertensive heart disease without congestive heart failure<sup>7</sup> Resolved 12/26/2012 Problem 05/29/2018 Data migrated from [employer] on 08/16/14. CATHY Zhong [facility] Hypogonadism<sup>8</sup> Active 12/26/2012 Problem 05/29/2018 Data migrated from [employer] on 08/16/14. CATHY Zhong [facility] Hypothyroidism<sup>9</sup> Active 12/26/2012 Problem 05/29/2018 Data migrated from [employer] on 08/16/14. CATHY Zhong [facility] Osteoporosis<sup>10</sup> Active 12/26/2012 Problem 09/15/2017 Data migrated from [employer] on 08/16/14. CATHY Zhong [facility] Smoker<sup>12</sup> Active 12/26/2012 Problem 09/15/2017 Data migrated from [employer] on 08/16/14. [facility] Warfarin therapy started<sup>14</sup> Active 12/26/2012 Problem 09/15/2017 Data migrated from [employer] on 08/16/14. CATHY Zhong [facility] Coronary arteriosclerosis<sup>1</sup> Active 12/26/2012 Problem 07/01/2017 Data migrated from [employer] on 08/16/14. CATHY Zhong [place] Hearing loss<sup>5</sup> Active 12/26/2012 Problem [...] migrated from [employer] on 08/16/14. [facility] Warfar[facility] started<sup>14</sup> Active 12/26/2012 Problem 07/01/2017 Data migrated from [employer] on 08/16/14. CATHY Zhong [place] Smoker<sup>11</sup> Active 12/26/2012 Problem 05/29/2018 Data migrated from [employer] on 08/16/14. [facility], CATHY [place] Warfarin therapy started<sup>13</sup> Active 12/26/2012 Problem 05/23/2018 Data migrated from [employer] on 08/16/14. 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 Problem 05/29/2018 [facility] [place], [facility] CABG x 3 - Coronary artery bypass grafts x 3 Active Problem 05/29/2018 [facility] [place] Cancer of prostate Active Problem 05/29/2018 [facility] [place] Diabetes mellitus Active Problem 09/15/2017 [facility] [place], [facility] Diabetes Resolved Problem 05/29/2018 [facility], [place], [facility] [place] BP (<span ID="[id number]</span>) Resolved Problem 09/15/2017 [facility] [place] Cancer Resolved Problem 05/29/2018 [facility], [place], [facility] [place] Obesity Active Problem 05/29/2018 [facility] [place] Peripheral circulatory disorder associated with type 2 diabetes mellitus<sup>11</sup> Active Problem 09/15/2017 Data migrated from [employer] on 08/16/14. 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 OPID [place], [place] Obesity Active Problem 04/30/2018 [facility] [place], [facility] [place] Memory loss Active Problem 05/29/2018 [facility], [facility] [place] Anticoagulated Active Problem 05/29/2018 [facility], [facility] [place] Aortic stenosis Active Problem 05/29/2018 [facility], [facility] [place] Bilateral inguinal hernia Active Problem 05/29/2018 [facility] [place] Cholelithiasis Active Problem 05/29/2018 [facility], [facility] [place] Vertebral compression fracture Active Problem 05/29/2018 [facility], [facility] [place] Diverticulosis Active Problem 05/29/2018 [facility], [facility] [place] Dizziness Resolved Problem 05/29/2018 [facility] [place] History of CVA in adulthood Active Problem 05/29/2018 [facility] [place] S/p CABG (<span ID="[id number]">Confirmed</span>) Active Problem 05/29/2018 [facility] [place] S/P coronary artery stent placement Active Problem 05/29/2018 [facility], [facility] [place] History of colon polyps Active Problem 05/29/2018 [facility] [place] Hypertension Active Problem 05/29/2018 [facility] [place] Nephrolithiasis Active Problem 05/29/2018 [facility] [place] Microscopic hematuria Active Problem 05/29/2018 [facility] [place] Osteopenia Active Problem 05/29/2018 [facility] [place] Paroxysmal atrial fibrillation Active Problem 05/29/2018 [facility] [place] Peripheral circulatory disorder associated with type 2 diabetes mellitus<sup>10</sup> Active Problem 05/29/2018 Data migrated from [employer] on 08/16/14. [facility] [place] Tinnitus Active Problem 05/29/2018 [facility] [place] Type 2 diabetes mellitus Active Problem 05/29/2018 [facility] [place] Vertigo Active Problem 05/29/2018 [facility] [place] Scrotal hematoma Active Problem 05/23/2018 [facility] COLLAPSED VERTEBRA, NEC, THORACIC REGION Active [facility] Medications Medication Details Route Status Patient Instructions Ordering Provider Order Date Source Valsartan/Hydrochlorothiazide (Diovan Hct 320-25 Mg Tablet) 1 Each Tablet, Daily Active 05/07/2018 [facility] pravastatin 10 mg oral tablet See Instructions, # 90 tab, Refill(s) 5, TAKE 1 TABLET BY MOUTH EVERY DAY, Pharmacy: [facility] [id number] Active 07/03/2017 [facility] Saline Flush 0.9% 10 mL, Route: IVP, Drug Form: INJ, Dosing Weight 81.818, kg, PRN, PRN Line Flush, Start date: 06/28/17 12:33:00 CDT, Duration: 30 day, Stop date: 07/28/17 12:32:00 CDTNotes: (Same as: BD Posiflush) Inactive 06/28/2017 [facility] Accu-Chek Aide Plus Blood Glucose Test Strips 1 ea, MISC, TID, Use for blood glucose monitoring., # 100 ea, Not insulin dependent, Does not use insulin pump, Last DM eval date 06/28/17, 11 Refill(s) Active 06/28/2017 [facility] Lactulose 667 MG/ML Oral Solution 10 gm=15 mL, PO, Daily, PRN constipation, X 5 day, # 75 mL, 0 Refill(s) Active 05/06/2016 [facility] POLYETHYLENE GLYCOL 3350 142 MG/ML Oral Solution [Miralax] 17 gm, PO, Bedtime, PRN Constipation, Dissolve in 8 oz. of water, X 10 day, # 255 gm, 1 Refill(s) Active 05/06/2016 [facility] POLYETHYLENE GLYCOL 3350 142 MG/ML Oral Solution [Miralax] 17 gm, PO, Bedtime, Dissolve in 8 oz. of water, X 7 day, # 1 ea, 1 Refill(s), Pharmacy: [facility] [id number] Active 05/06/2016 [facility] Acetaminophen/Codeine Phosphate (Tylenol # 3*) 1 Ea Tab Every 6 Hours as needed for Pain Active [facility] Amlodipine Besylate 10 Mg Tablet Bedtime Active [facility] Calcium Daily Active [facility] Docusate Sodium (Stool Softener) 50 Mg Capsule Daily Active [facility] Fish Oil/Dha/Epa (Fish Oil 1,200 Mg Fish Oil) 1 Each Capsule Bedtime Active [facility] Hydrochlorothiazide 25 Mg Tablet Daily Active [facility] Irbesartan 150 Mg Tablet Daily Active [facility] Levothyroxine Sodium 50 Mcg Tablet Daily Active [facility] Lovenox Twice A Day Active [facility] Magnesium Active [facility] Metformin Hcl (Metformin Hcl Er) 500 Mg Tab.er.24 Twice A Day Active [facility] Mu-Vits-Min Th/Lycopene/Lutein (Centrum Silver Tablet) 1 Each Tablet Daily Active [facility] Pravastatin Sodium 10 Mg Tablet Daily Active [facility] Sulfamethoxazole/Trimethoprim (Sulfamethoxazole-Tmp Ds Tablet) 1 Each Tablet Daily Active [facility] Warfarin Sodium 4 Mg Tablet Daily Active [facility] Allergies, Adverse Reactions, Alerts Substance Category Reaction Severity Reaction type Status Date Reported Comments Source Immunizations Immunization Date Given Site Status Last Updated Comments Source diphtheria/pertussis, acel/tetanus adult<sup>1</sup> 09/12/2017 Left deltoid completed Cara Result Comment: PATIENT WAITED 15 MINUTES AND HAD NO REACTION. [facility] CATHY [place] pneumococcal 13-valent vaccine 12/05/2016 completed Cara [facility] CATHY [place] pneumococcal 23-valent vaccine 05/13/2015 Left Deltoid completed Cristine CATHY Zhong CATHY [place] pneumococcal 23-valent vaccine 05/13/2015 Left Deltoid completed [facility] 05/13/2015 Left Deltoid completed [facility] pneumococcal 23-valent vaccine 05/13/2015 completed Cara [facility] CATHY [place] Results Order Name Results Value Reference Range Date Interpretation Comments Source Capillary blood glucose measurement by glucometer (mass/volume) 238 70 - 120 05/23/2018 [facility] Blood leukocytes automated count (number/volume) 9.16 4.8 - 10.8 05/23/2018 [facility] Blood erythrocytes automated count (number/volume) 4.17 4.3 - 5.7 05/23/2018 [facility] Blood hemoglobin measurement (moles/volume) 13.1 14.0 - 18.0 05/23/2018 [facility] Automated blood hematocrit (volume fraction) 37.5 38.2 - 49.6 05/23/2018 [facility] Automated erythrocyte mean corpuscular volume 89.9 81 - 99 05/23/2018 [facility] Automated erythrocyte mean corpuscular hemoglobin (mass per erythrocyte) 31.4 28 - 32 05/23/2018 [facility] Automated erythrocyte mean corpuscular hemoglobin concentration measurement (mass/volume) 34.9 31 - 35 05/23/2018 [facility] RDW BldCo-Rto 11.6 11.7 - 14.4 05/23/2018 [facility] Automated blood platelet count (count/volume) 253 140 - 360 05/23/2018 [facility] Automated blood segmented neutrophil count as percentage of total leukocytes 58.7 38.7 - 80.0 05/23/2018 [facility] Automated blood lymphocyte count as percentage ot total leukocytes 26.4 18.0 - 39.1 05/23/2018 [facility] Automated blood monocyte count as percentage of total leukocytes 10.0 4.4 - 11.3 05/23/2018 [facility] Automated blood eosinophil count as percentage of total leukocytes 3.6 0.0 - 6.0 05/23/2018 [facility] Automated blood basophil count as percentage of total leukocytes 1.0 0.0 - 1.0 05/23/2018 [facility] IM GRANULOCYTES % 0.3 0.0 - 1.0 05/23/2018 [facility] Automated blood neutrophil count 5.4 2.1 - 6.9 05/23/2018 [facility] Blood lymphocytes count (number/volume) 2.4 1.0 - 3.2 05/23/2018 [facility] Blood monocytes automated count (number/volume) 0.9 0.2 - 0.8 05/23/2018 [facility] Automated blood eosinophil count 0.3 0.0 - 0.4 05/23/2018 [facility] Automated blood basophil count (count/volume) 0.1 0.0 - 0.1 05/23/2018 [facility] Absolute Immature Granulocyte (auto 0.03 0 - 0.1 05/23/2018 [facility] Serum or plasma sodium measurement (moles/volume) 138 136 - 145 05/23/2018 [facility] Serum or plasma potassium measurement (moles/volume) 3.9 3.5 - 5.1 05/23/2018 [facility] Serum or plasma chloride measurement (moles/volume) 102 98 - 107 05/23/2018 [facility] Serum or plasma carbon dioxide, total measurement (moles/volume) 26 22 - 29 05/23/2018 [facility] Serum or plasma anion gap 13.9 8 - 16 05/23/2018 [facility] Serum or plasma urea nitrogen measurement (mass/volume) 11 7 - 26 05/23/2018 [facility] Serum or plasma creatinine measurement (mass/volume) 0.97 0.72 - 1.25 05/23/2018 [facility] Serum or plasma urea nitrogen/creatinine mass ratio 11 6 - 25 05/23/2018 [facility] Estimated glomerular filtration rate (GFR) determination > 60 60 05/23/2018 [facility] Glucose measurement 160 74 - 118 05/23/2018 [facility] Serum or plasma calcium measurement (mass/volume) 9.3 8.4 - 10.2 05/23/2018 [facility] Urine color determination YELLOW YELLOW 05/20/2018 [facility] Urine clarity CLEAR CLEAR 05/20/2018 [facility] Specific gravity of Urine by Test strip 1.015 1.010 - 1.025 05/20/2018 [facility] Urine pH measurement by automated test strip 8 5 - 7 05/20/2018 [facility] Urine leukocyte esterase detection by dipstick NEGATIVE NEGATIVE 05/20/2018 [facility] Urine nitrite detection NEGATIVE NEGATIVE 05/20/2018 [facility] Urine protein measurement by test strip (mass/volume) NEGATIVE NEGATIVE 05/20/2018 [facility] Urine glucose detection NEGATIVE NEGATIVE 05/20/2018 [facility] Urine ketones detection by automated test strip NEGATIVE NEGATIVE 05/20/2018 [facility] Urine urobilinogen measurement by test strip (mass/volume) 0.2 0.2 - 1 05/20/2018 [facility] Urine total bilirubin measurement (mass/volume) NEGATIVE NEGATIVE 05/20/2018 [facility] Urine erythrocytes detection NEGATIVE NEGATIVE 05/20/2018 [facility] Automated urine sediment leukocyte count by microscopy (number/high power field) NONE 0 - 5 05/20/2018 [facility] Erythrocytes detection in urine sediment by light microscopy NONE 0 - 5 05/20/2018 [facility] Bacteria detection in urine sediment by light microscopy NONE NONE 05/20/2018 [facility] Epithelial cells detection in urine sediment by light microscopy NONE NONE 05/20/2018 [facility] Prothrombin time (PT) in platelet poor plasma by coagulation assay 18.8 11.9 - 14.5 05/20/2018 [facility] INR in Platelet poor plasma by Coagulation assay 1.51 05/20/2018 [facility] Lactic Acid Level 13.9 4.5 - 19.8 05/20/2018 [facility] Serum or plasma total bilirubin measurement (mass/volume) 0.8 0.2 - 1.2 05/20/2018 [facility] Aspartate Amino Transf (AST/SGOT) 22 5 - 34 05/20/2018 [facility] Serum or plasma alanine aminotransferase measurement (enzymatic activity/volume) 34 0 - 55 05/20/2018 [facility] Serum or plasma protein measurement (mass/volume) 7.7 6.5 - 8.1 05/20/2018 [facility] Serum or plasma albumin measurement (mass/volume) 4.2 3.5 - 5.0 05/20/2018 [facility] Plasma globulin measurement (mass/volume) 3.5 2.3 - 3.5 05/20/2018 [facility] Serum or plasma albumin/globulin mass ratio 1.2 0.8 - 2.0 05/20/2018 [facility] Serum or plasma alkaline phosphatase measurement (enzymatic activity/volume) 94 40 - 150 05/20/2018 [facility] Activated partial thromboplastin time (aPTT) in platelet poor plasma bycoagulation assay 41.0 23.8 - 35.5 05/09/2018 [facility] Bone Density DXA [employer] MA Bone [...] for fracture. This exam was interpreted at [id number] for KAITY [place] 15. Rommel Bolton M.D. 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 10/11/2017 - - Read by: Kai Beaver MD Dictated Date/time: 10/11/17 11:22 Electronically Signed by: Kai Beaver MD 10/11/17 11:22 FINAL REPORT MATIASD [place] URINE AND STOOL UA Sq Epi None Seen 06/28/2017 [facility] URINE AND STOOL UA Urobilinogen <=1.0 mg/dL 0.1 - 1.0 06/28/2017 [facility] URINE AND STOOL UA Bacteria Occasional /HPF None Seen /HPF 06/28/2017 [facility] URINE AND STOOL UA Bili Negative *NA* (06/28/17 1:56 PM) Negative 06/28/2017 [facility] URINE AND STOOL UA Ketones Negative mg/dL Negative mg/dL 06/28/2017 [facility] URINE AND STOOL UA Glucose 150 mg/dL Negative mg/dL 06/28/2017 [facility] URINE AND STOOL UA RBC 5 /HPF 0 - 2 06/28/2017 [facility] URINE AND STOOL UA WBC 1 /HPF 0 - 5 06/28/2017 [place] URINE AND STOOL UA Leuk Est Negative (06/28/17 1:56 PM) Negative 06/28/2017 [facility] URINE AND STOOL UA Nitrite Negative (06/28/17 1:56 PM) Negative 06/28/2017 [facility] URINE AND STOOL UA Blood Small *ABN* (06/28/17 1:56 PM) Negative 06/28/2017 [facility] URINE AND STOOL UA Protein Negative mg/dL Negative mg/dL 06/28/2017 [facility] URINE AND STOOL UA pH 6.0 5.0 - 8.0 06/28/2017 [facility] URINE AND STOOL UA Spec Grav 1.012 <=1.030 06/28/2017 [facility] URINE AND STOOL UA Turbidity Clear (06/28/17 1:56 PM) Clear 06/28/2017 [facility] URINE AND STOOL UA Color Yellow *NA* (06/28/17 1:56 PM) Yellow 06/28/2017 [facility] CHEM PANEL eGFR 71 mL/min/1.73m2 06/28/2017 [...] should be multiplied by the estimated BMI. [facility] CHEM PANEL Alk Phos 61 unit/L 39 - 136 06/28/2017 [facility] CHEM PANEL AST 13 unit/L 0 - 37 06/28/2017 [facility] CHEM PANEL Calcium Lvl 9.8 mg/dL 8.5 - 10.5 06/28/2017 [facility] CHEM PANEL Albumin Lvl 3.6 g/dL 3.5 - 5.0 06/28/2017 [facility] CHEM PANEL Total Protein 7.5 g/dL 6.4 - 8.4 06/28/2017 [facility] CHEM PANEL ALT 21 unit/L 0 - 65 06/28/2017 [facility] CHEM PANEL Bili Total 0.6 mg/dL 0.2 - 1.3 06/28/2017 [facility] CHEM PANEL CO2 32 meq/L 24 - 32 06/28/2017 [facility] CHEM PANEL Chloride Lvl 99 meq/L 95 - 109 06/28/2017 [facility] CHEM PANEL Potassium Lvl 4.4 meq/L 3.5 - 5.1 06/28/2017 [facility] CHEM PANEL Sodium Lvl 139 meq/L 135 - 145 06/28/2017 [facility] CHEM PANEL Creatinine Lvl 1.01 mg/dL 0.50 - 1.40 06/28/2017 [facility] CHEM PANEL Glucose Lvl 225 mg/dL 70 - 99 06/28/2017 [place] CHEM PANEL BUN 14 mg/dL 7 - 22 06/28/2017 [facility] CHEM PANEL AGAP 12.4 meq/L 10.0 - 20.0 06/28/2017 [facility] CHEM PANEL A/G Ratio 0.9 0.7 - 1.6 06/28/2017 [facility] CHEM PANEL Globulin 3.9 g/dL 2.7 - 4.2 06/28/2017 [place] CHEM PANEL B/C Ratio 14 6 - 25 06/28/2017 [facility] CHEM PANEL Magnesium Lvl 2.0 mg/dL 1.8 - 2.4 06/28/2017 [facility] CHEM PANEL Lipase Lvl 141 unit/L 73 - 393 06/28/2017 [facility] CHEM PANEL Phosphorus 3.1 mg/dL 2.5 - 4.5 06/28/2017 [facility] HEMATOLOGY Basophils 1.0 % 0.0 - 1.0 06/28/2017 [facility] HEMATOLOGY Segs-Bands # 3.9 K/CMM 1.5 - 8.1 06/28/2017 [facility] HEMATOLOGY Basophils # 0.1 K/CMM 0.0 - 0.2 06/28/2017 [facility] HEMATOLOGY Lymphocytes # 1.3 K/CMM 1.0 - 5.5 06/28/2017 [facility] HEMATOLOGY Eosinophils # 0.2 K/CMM 0.0 - 0.5 06/28/2017 [facility] HEMATOLOGY Monocytes # 1.2 K/CMM 0.0 - 0.8 06/28/2017 [facility] HEMATOLOGY Lymphocytes 20.0 % 20.0 - 40.0 06/28/2017 [facility] HEMATOLOGY Monocytes 18.4 % 2.0 - 12.0 06/28/2017 [facility] HEMATOLOGY Eosinophils 2.9 % 0.0 - 4.0 06/28/2017 [facility] HEMATOLOGY Segs 57.7 % 45.0 - 75.0 06/28/2017 [facility] HEMATOLOGY Platelet 198 K/CMM 133 - 450 06/28/2017 [facility] HEMATOLOGY MPV 9.2 fL 7.4 - 10.4 06/28/2017 [facility] HEMATOLOGY WBC 6.7 K/CMM 3.7 - 10.4 06/28/2017 [facility] [facility] MCHC 34.3 g/dL 32.0 - 36.0 06/28/2017 [facility] RDW 12.6 % 11.5 - 14.5 06/28/2017 [facility] MCV 91.5 fL 80.0 - 94.0 06/28/2017 [facility] RBC 4.80 M/CMM 4.70 - 6.10 06/28/2017 [facility] Hgb 15.1 g/dL 14.0 - 18.0 06/28/2017 [facility] Hct 43.9 % 42.0 - 54.0 06/28/2017 [facility] MCH 31.4 pg 27.0 - 31.0 06/28/2017 [facility] Chest 1view DX Chest 1view DX Clinical Indication: - evaluate right lung infiltrate? asymptomatic; Comparison: 08/03/2010 Technique: X-ray chest frontal projection FINDINGS: There is no consolidation, pleural effusion or pneumothorax. The heart is normal in size. The mediastinum and anthony are unremarkable. The patient is status post median sternotomy. IMPRESSION: No chest radiographic evidence of acute cardiopulmonary disease. 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 SL: [id number] 05/23/2016 - - Read by: Jessica Barragan [...] UA Protein Negative mg/dL Negative mg/dL 05/06/2016 [facility] URINE AND STOOL UA Urobilinogen <=1.0 mg/dL 0.1 - 1.0 05/06/2016 [facility] URINE AND STOOL UA Color Ltyellow 05/06/2016 [facility] URINE AND STOOL UA Ketones Negative mg/dL Negative mg/dL 05/06/2016 [facility] URINE AND STOOL UA Bili Negative *NA* (05/05/16 10:57 PM) Negative 05/06/2016 [facility] CHEM PANEL eGFR 65 mL/min/1.73m2 05/05/2016 [...] should be multiplied by the estimated BMI. [facility] CHEM PANEL Bili Total 0.4 mg/dL 0.2 - 1.3 05/05/2016 [facility] CHEM PANEL Alk Phos 74 unit/L 39 - 136 05/05/2016 [facility] CHEM PANEL AST 18 unit/L 0 - 37 05/05/2016 [facility] CHEM PANEL ALT 32 unit/L 0 - 65 05/05/2016 [facility] CHEM PANEL Calcium Lvl 9.4 mg/dL 8.5 - 10.5 05/05/2016 [facility] CHEM PANEL Total Protein 7.8 g/dL 6.4 - 8.4 05/05/2016 [facility] CHEM PANEL Albumin Lvl 4.3 g/dL 3.5 - 5.0 05/05/2016 [facility] CHEM PANEL Glucose Lvl 109 mg/dL 70 - 99 05/05/2016 [facility] CHEM PANEL Chloride Lvl 96 meq/L 95 - 109 05/05/2016 [facility] CHEM PANEL CO2 32 meq/L 24 - 32 05/05/2016 [facility] CHEM PANEL Potassium Lvl 4.0 meq/L 3.5 - 5.1 05/05/2016 [facility] CHEM PANEL Creatinine Lvl 1.10 mg/dL 0.50 - 1.40 05/05/2016 [facility] CHEM PANEL Sodium Lvl 136 meq/L 135 - 145 05/05/2016 [facility] CHEM PANEL BUN 18 mg/dL 7 - 22 05/05/2016 [facility] CHEM PANEL B/C Ratio 16 6 - 25 05/05/2016 [facility] CHEM PANEL Globulin 3.5 g/dL 2.7 - 4.2 05/05/2016 [facility] CHEM PANEL A/G Ratio 1.2 0.7 - 1.6 05/05/2016 [facility] CHEM PANEL AGAP 12.0 meq/L 10.0 - 20.0 05/05/2016 [facility] HEMATOLOGY MCV 88.3 fL 80.0 - 94.0 05/05/2016 [facility] Platelet 266 K/CMM 133 - 450 05/05/2016 [facility] Hct 42.8 % 42.0 - 54.0 05/05/2016 [facility] RDW 12.9 % 11.5 - 14.5 05/05/2016 [facility] MCHC 35.1 g/dL 32.0 - 36.0 05/05/2016 [facility] MCH 30.9 pg 27.0 - 31.0 05/05/2016 [facility] MPV 8.0 fL 7.4 - 10.4 05/05/2016 [facility] WBC 7.7 K/CMM 3.7 - 10.4 05/05/2016 [facility] Hgb 15.0 g/dL 14.0 - 18.0 05/05/2016 [facility] RBC 4.85 M/CMM 4.70 - 6.10 05/05/2016 [facility] Lymphocytes 27.2 % 20.0 - 40.0 05/05/2016 [facility] Segs 57.8 % 45.0 - 75.0 05/05/2016 [facility] Eosinophils # 0.4 K/CMM 0.0 - 0.5 05/05/2016 [facility] Monocytes # 0.7 K/CMM 0.0 - 0.8 05/05/2016 [facility] Basophils # 0.1 K/CMM 0.0 - 0.2 05/05/2016 [facility] Basophils 1.1 % 0.0 - 1.0 05/05/2016 [facility] HEMATOLOGY Eosinophils 4.6 % 0.0 - 4.0 05/05/2016 [facility] HEMATOLOGY Monocytes 9.3 % 2.0 - 12.0 05/05/2016 [facility] HEMATOLOGY Segs-Bands # 4.4 K/CMM 1.5 - 8.1 05/05/2016 [facility] HEMATOLOGY Lymphocytes # 2.1 K/CMM 1.0 - 5.5 05/05/2016 [facility] Abdomen/Pelvis w IV contrast CT Abdomen/Pelvis w IV contrast CT Patient Name: FRANCE SCHAEFER : 1940; Age: 75 years y/o Male MR: [id number] Study: Abdomen/Pelvis w IV contrast CT 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 4. Left nephrolithiasis incompletely evaluated. SL: JARTURO 05/05/2016 - - Read by: Carter Mullins MD Dictated Date/time: 05/05/16 17:17 Electronically Signed by: Carter Mullins MD 05/05/16 17:33 FINAL REPORT [facility] Spine lumbar 2 or 3 views [...] Desmond Varner MD 04/28/16 15:46 FINAL REPORT [facility] [place] Scrotal/Testicle w Doppler [...] epididymal tail. 5. Small right hydrocele. SL: [id number] 08/06/2015 - - Read by: All Campbell MD Dictated Date/time: 08/06/15 10:32 Electronically Signed by: All Campbell MD 08/06/15 10:36 FINAL REPORT [facility] [place] Bone Density [employer] MA Bone Density [employer] MA - Bone Density [employer] MA MALE BONE DENSITY EVALUATION: 05/26/2015 RISK FACTORS: race. COMPARISON: 01/03/2013 Left total femur area using a Hologic unit from [facility] with reported normal fracture risk, BMD of 0.913g/cm2 and T-score of -0.80. 01/03/2013 Left femur neck using a Hologic unit from [facility] with reported medium fracture risk, BMD of 0.774g/cm2, T-score of -1.10 and Z- score of 0.10. 01/03/2013 AP L1-L4 region of spine using a Hologic unit from [facility] with reported high fracture risk, BMD [...] This exam was dictated and interpreted by [id number] for KAITY Del Toro 15. Rommel Bolton M.D., cm/kathrin:05/29/2015 09:50:26 Terminal Worker: Santhosh Guerrero Fillmorepranav Allen 05/26/2015 - - Read by: Kai Beaver MD Dictated Date/time: 05/29/15 09:50 Electronically Signed by: Kai Beaver MD 05/29/15 09:50 FINAL REPORT [facility] [place] Elbow 2 views DX Elbow 2 views [...] tissue swelling. No acute osseous abnormality. SL: 10/27/2014 - - Read by: Chico Amado MD Dictated Date/time: 10/27/14 13:12 Electronically Signed by: Chico Amado 10/27/14 13:13 FINAL REPORT [facility] Vital Signs Vital Sign Value Date Comments Source Height 172.72 cm 05/24/2018 [facility] BMI Calculated 28.25 05/24/2018 [facility] Weight 84.29 05/24/2018 [facility] Systolic (mm Hg) 134 05/24/2018 [facility] Diastolic (mm Hg) 78 05/24/2018 [facility] Temperature Oral (F) 98.1 F 05/24/2018 [facility] Heart Rate 75 05/24/2018 [facility] Weight 86.506 11/02/2017 [facility] BMI Calculated 29 11/02/2017 [facility] Height 172.72 cm 11/02/2017 [facility] Temperature Oral (F) 97.5 F 11/02/2017 [facility] Heart Rate 59 11/02/2017 [facility] Systolic (mm Hg) 159 11/02/2017 [facility] Diastolic (mm Hg) 84 11/02/2017 [facility] Height 172.72 cm 10/03/2017 [facility] BMI [...] 81 06/28/2017 [facility] Rate 23 06/28/2017 [facility] Weight 81.818 06/28/2017 [facility] Height 172.72 cm 06/28/2017 [facility] BMI Calculated 27.43 06/28/2017 [facility] Temperature Oral (F) 97.9 F 06/28/2017 [facility] Heart Rate 66 06/28/2017 [facility] Systolic [...] 05/06/2016 [facility] Systolic (mm Hg) 147 05/06/2016 [facility] Diastolic (mm Hg) 82 05/06/2016 [facility] Temperature Oral (F) 98.2 F 05/06/2016 [facility] Systolic (mm Hg) 160 05/06/2016 [facility] Diastolic (mm Hg) 77 05/06/2016 [facility] Temperature Oral (F) 98.0 F 05/06/2016 [facility] Heart Rate 68 05/06/2016 [facility] Rate 20 05/06/2016 [facility] Systolic (mm Hg) 197 05/06/2016 [facility] Diastolic (mm Hg) 101 05/06/2016 [facility] Heart Rate 64 05/06/2016 [facility] Rate 20 05/06/2016 [facility] Temperature Oral (F) 98.0 F 05/06/2016 [facility] Height 172.72 cm 05/05/2016 [facility] BMI Calculated 28.04 05/05/2016 [facility] Weight 83.636 05/05/2016 [facility] Encounters Location Location Details Encounter Type Encounter Number Reason For Visit Attending Provider ADM Date DC Date Status Source Outpatient [id number] FERNIE THOMSON 10/27/2014 Active [facility] Outpatient [id number] ALEXAAQUILES LAUREN- GOR 11/10/2014 Active [facility] Outpatient [id number] ALEXA LAUREN- GOR 05/13/2015 Active [facility] [place] [facility] [id number] Alexa Lauren-Gor 05/26/2015 05/27/2015 [facility] [place] Outpatient [id number] ALEXAAQUILES LAUREN- GOR 08/05/2015 Active [facility] Outpatient Imaging [place] [facility] [id number] Alexaaquiles Lauren-Gor 08/06/2015 08/07/2015 [facility] [place] Outpatient [id number] ALEXAAQUILES LAUREN- GOR 11/11/2015 Active [facility] Outpatient [id number] BOBBY FAGAN 01/27/2016 Active [facility] Outpatient [id number] BOBBY FAGAN 02/01/2016 Active [facility] Outpatient [id number] MAGDALENE CORA- PRATT 04/27/2016 [facility] Outpatient Imaging [place] [facility] [id number] Magdalene Cora-Pratt 04/28/2016 04/29/2016 [facility] [place] Outpatient [id number] ALEXA LAUREN- SERGO 05/02/2016 Active [facility] Emergency [id number] Angelinazoila Miller 05/05/2016 05/06/2016 [facility] Outpatient [id number] MELANIE ALMAGUER 05/18/2016 Active [facility] Outpatient [id number] Leif Schumacherh 05/23/2016 05/24/2016 [facility] Outpatient [id number] LEIF DANIS 05/31/2016 Active [facility] Outpatient [id number] LEIF DANIS 07/05/2016 Active [facility] Outpatient [id number] NURSE VISIT 06/28/2017 Active [facility] Outpatient [id number] LATESHA BELLO 06/28/2017 Active [facility] Primary [facility] Ambulatory Pre-Reg [id number] 06/28/2017 06/28/2017 [facility] Outpatient [id number] Latesha Ace 06/28/2017 06/29/2017 [facility] Emergency [id number] Refugio Obando 06/28/2017 06/28/2017 [facility] Phone Message [id number] 07/03/2017 07/05/2017 [facility] Phone Message [id number] 07/06/2017 07/08/2017 [facility] Phone Message [id number] 07/12/2017 07/14/2017 [facility] Outpatient [id number] NURSE VISIT 09/12/2017 Active [facility] Outpatient [id number] NURSE VISIT 09/12/2017 Active [facility] Outpatient [id number] Latesha Ace 09/12/2017 09/13/2017 [facility] Primary [facility] Ambulatory Pre-Reg [id number] 09/12/2017 09/12/2017 [facility] Outpatient [id number] LATESHA ACE 10/03/2017 Active [facility] Outpatient [id number] Latesha Ace 10/03/2017 10/04/2017 [facility] Outpatient [facility] [id number] Latesha Ace 10/11/2017 10/12/2017 [facility] Registered Clinic [id number] MARISELA PRIETO MD 10/26/2017 [facility] Outpatient [id number] LATESHA ACE 11/02/2017 Active [facility] Outpatient [id number] Latesha Ace 11/02/2017 11/03/2017 [facility] Outpatient [id number] LATESHA ACE 11/21/2017 Active [facility] Outpatient [id number] LATESHA ACE 11/24/2017 [facility] [id number] MARISELA PRIETO MD 11/29/2017 [facility] Registered [facility] [id number] MARISELA PRIETO MD 01/29/2018 [facility] Outpatient [id number] LATESHA ACE 02/02/2018 [facility] Registered [facility] Day [facility] [id number] MARISELA PRIETO MD 05/09/2018 [facility] Discharged Inpatient [id number] FRANCE DEVRIES MD 05/20/2018 05/23/2018 [facility] Outpatient [id number] MAGDALENE PRATT 05/21/2018 [facility] Ambulatory Pre-Reg [id number] Magdalene Castellanos-Pratt 05/21/2018 05/21/2018 [facility] Outpatient [id number] LATESHA ACE 05/24/2018 [facility] Outpatient [id number] Latesha Ace 05/24/2018 05/25/2018 [facility] Visit [id number] 05/26/2018 05/27/2018 [facility] Outpatient [id number] LATESHA ACE 09/27/2018 [facility] Procedures Procedure Code Date Perfomer Comments Source Cystoscopy with retrograde pyelography [id number] 05/21/2018 [facility] CYSTOSCOPY & URETER CATHETER 12055 05/09/2018 [facility] CYSTOSCOPY CHEMODENERVATION 17712 05/09/2018 [facility] REMOVAL OF TESTIS 33898 05/09/2018 [facility] Testicular ultrasound [id number] 01/29/2018 [facility] Dup-scan artl bob abdl/pel/scrot&/RPR orgn lmt [id number] 01/29/2018 [facility] CYSTOSCOPY & URETER CATHETER 62500 11/29/2017 [facility] REMOVE BLADDER STONE 80619 11/29/2017 [facility] X-ray of chest, two views [id number] 11/27/2017 [facility] Computed tomography of abdomen and pelvis without then with contrast [id number] 10/26/2017 [facility] Endoscopic prostatectomy [id number] [facility] [place] Functional endoscopic sinus surgery - anterior ethmoidectomy and frontal recess dissection [id number] [facility] [place] Hemorrhoidectomy [id number] [facility] [place] Tonsillectomy [id number] [facility] [place] Triple coronary bypass [id number] [facility] [place] Endoscopic prostatectomy [id number] [facility] [place] Functional endoscopic sinus surgery - anterior ethmoidectomy and frontal recess dissection [id number] [facility] [place] Hemorrhoidectomy [id number] [facility] [place] Tonsillectomy [id number] [facility] [place] Triple coronary bypass [id number] [facility] [place] Endoscopic prostatectomy [id number] [facility] Functional endoscopic sinus surgery - anterior ethmoidectomy and frontal recess dissection [id number] [facility] Hemorrhoidectomy [id number] [facility] Tonsillectomy [id number] [facility] Triple coronary bypass [id number] [facility] Endoscopic prostatectomy [id number] [facility] Functional endoscopic sinus surgery - anterior ethmoidectomy and frontal recess dissection [id number] [facility] Hemorrhoidectomy [id number] [facility] Tonsillectomy [id number] [facility] Triple coronary bypass [id number] [facility]
--- OUTSIDE RECORDS SUMMARY | 2018-05-30 12:05 | XMS REPORT | Summary of Care ---
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 [...]
--- OUTSIDE RECORDS SUMMARY | 2018-05-30 12:05 | XMS REPORT | Summary of Care ---
Author Author [facility] Organization [facility] Address Unknown Phone Unavailable Encounter HQ Jovanir_shonda(FIN) [id number] Date(s): 05/24/18 - 05/24/[address], [address] [place] [address]- [phone] Discharge Disposition: Home or Self Care Attending Physician: Nakul Simons MD Vital Signs Most recent to 1 oldest [Reference Range]: Height 172.72 cm (05/24/18 9:49 AM) Temperature Oral 98.1 DegF [96.4-99.1 DegF] (05/24/18 9:49 AM) Blood Pressure 134/78 mmHg [90-140/60-90 mmHg] (05/24/18 9:49 AM) Peripheral Pulse 75 bpm Rate [60-100 bpm] (05/24/18 9:49 AM) Weight 84.29 kg (05/24/18 9:49 AM) Body Mass Index 28.25 m2 (05/24/18 9:49 AM) Problem List Condition Effective Dates Status Health Status Informant 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) Anticoagulated(Confi Active rmed) Aortic Active stenosis(Confirmed) Bilateral inguinal Active hernia(Confirmed) Cholelithiasis(Confi Active rmed) 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 Allergies, [...] 11.0; Stopped at age: 44; entered on: 05/24/18 Assessment and Plan No data available for this section
--- OUTSIDE RECORDS SUMMARY | 2018-05-30 12:05 | XMS REPORT | Summary of Care ---
Author Author [facility] Organization [facility] Address Unknown Phone Unavailable Encounter HQ Jovanir_shonda(FIN) [id number] Date(s): 11/02/17 - 11/02/17 [place] [address] [facility], [address] [place] [address]- [phone] Discharge Disposition: Home or Self Care Attending Physician: Nakul Simons MD Vital Signs Most recent to 1 oldest [Reference Range]: Height 172.72 cm (11/02/17 11:12 AM) Temperature Oral 97.5 DegF [96.4-99.1 DegF] (11/02/17 11:12 AM) Blood Pressure 159/84 mmHg [90-140/60-90 mmHg] *HI* (11/02/17 11:12 AM) Peripheral Pulse 59 bpm Rate [60-100 bpm] *LOW* (11/02/17 11:12 AM) Weight 86.506 kg (11/02/17 11:12 AM) Body Mass Index 29 m2 (11/02/17 11:12 AM) Problem List Condition Effective Dates Status [...] 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 [...]
--- OUTSIDE RECORDS SUMMARY | 2018-05-30 12:05 | XMS REPORT | Summary of Care ---
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
[2018-05-30 13:03] LABS: BASOPHILS # (AUTO) 0.1 (0.0-0.1); BASOPHILS % 0.9 % (0.0-1.0); EOSINOPHILS # (AUTO) 0.1 (0.0-0.4); EOSINOPHILS % 1.3 % (0.0-6.0); HEMATOCRIT 37.9 % (38.2-49.6); HEMOGLOBIN 13.1 g/dL (14.0-18.0); LYMPHOCYTES # (AUTO) 1.4 (1.0-3.2); LYMPHOCYTES % 13.2 % (18.0-39.1); MEAN CORPUSCULAR HEMOGLOBIN 31.5 pg (28-32); MEAN CORPUSCULAR HGB CONC 34.6 g/dL (31-35); MEAN CORPUSCULAR VOLUME 91.1 fL (81-99); MONOCYTES # (AUTO) 0.8 (0.2-0.8); MONOCYTES % 7.4 % (4.4-11.3); NEUTROPHILS % 76.9 % (38.7-80.0); PLATELET COUNT 279 x10e3/uL (140-360); RED BLOOD COUNT 4.16 x10e6/uL (4.3-5.7); RED CELL DISTRIBUTION WIDTH 11.9 % (11.7-14.4)
[2018-05-30] MEDS ORDERED: CLINDAMYCIN PHOS 900MG/ 50ML 50 ML IV ONE (13:15)
[2018-05-30 13:18] LABS: ANION GAP 10.7 mmol/L (8-16); BLOOD UREA NITROGEN 10 mg/dL (7-26); BUN/CREATININE RATIO 12 (6-25); CALCIUM 9.1 mg/dL (8.4-10.2); CARBON DIOXIDE 28 mmol/L (22-29); CHLORIDE 98 mmol/L (98-107); CREATININE, SERUM 0.81 mg/dL (0.72-1.25); EST GLOMERULAR FILTRATION RATE > 60 ML/MIN (60-); GLUCOSE 233 mg/dL (74-118); POTASSIUM 3.7 mmol/L (3.5-5.1); SODIUM 133 mmol/L (136-145)
[2018-05-30 13:48] LABS: CLARITY,URINE CLEAR (CLEAR); COLOR,URINE YELLOW (YELLOW); LEUKOCYTE ESTERASE ,URINE NEGATIVE (NEGATIVE); NITRITE,URINE NEGATIVE (NEGATIVE)
[2018-05-30 13:49] LABS: BILIRUBIN,URINE NEGATIVE (NEGATIVE); KETONES,URINE NEGATIVE (NEGATIVE); PROTEIN,URINE DIPSTICK NEGATIVE (NEGATIVE); URINE UROBILINOGEN 0.2 mg/dL (0.2 - 1)
[2018-05-30 14:39] VITALS: BP 151/74
== END 2018-05-30 14:45 | disposition home or self-care (01) ==
LOC: ER 12:01
DX: N49.2 Inflammatory disorders of scrotum (principal); I10 Essential (primary) hypertension; E11.9 Type 2 diabetes mellitus without complications; E78.5 Hyperlipidemia, unspecified
CPT/HCPCS: 36415; 80048; 81001; 85025; 87086; 99283

== ENCOUNTER → 2018-09-21 | Day surgery (SDC) | payer MEDICARE ==
[2018-09-19 11:56] LABS: BASOPHILS # (AUTO) 0.1 (0.0-0.1); EOSINOPHILS # (AUTO) 0.2 (0.0-0.4); EOSINOPHILS % 4.4 % (0.0-6.0); HEMATOCRIT 39.7 % (38.2-49.6); HEMOGLOBIN 13.1 g/dL (14.0-18.0); LYMPHOCYTES # (AUTO) 1.4 (1.0-3.2); LYMPHOCYTES % 27.1 % (18.0-39.1); MEAN CORPUSCULAR HEMOGLOBIN 29.8 pg (28-32); MEAN CORPUSCULAR VOLUME 90.2 fL (81-99); MONOCYTES # (AUTO) 0.4 (0.2-0.8); MONOCYTES % 8.5 % (4.4-11.3); NEUTROPHILS # (AUTO) 3.1 (2.1-6.9); PLATELET COUNT 172 x10e3/uL (140-360); RED CELL DISTRIBUTION WIDTH 12.9 % (11.7-14.4)
[~2018-09-21] MED LIST changes: +B&O 60MG R/S 60 MG SUPP PR ONE; +BOTULINUM TOXIN TYPE A 100 UNIT VIAL IM ONE; +CEFTRIAXONE SOD 1 GM/NS 50 ML 50 ML IV ONE; +DEXAMETHASONE SOD PHOS INJ 4 MG/ML VIAL ONE; +FENTANYL CITRATE/PF 100MCG/2 ML INJ ONE; +GENTAMICIN 80MG/NS 100 ML 100 ML IV ONE; +IOPAMIDOL 610MG/1ML 300 MG/ML VIAL IV ONE; +LIDOCAINE HCL 2% LOCAL INJ 5 ML SDV VIAL INJ ONE; +ONDANSETRON HCL INJ 2MG/ML 2ML 2 MG/ML VIAL ONE; +PROPOFOL IV EMULSION 10 MG/ML 20 ML VIAL ONE; +SEVOFLURANE INHAL SOLN 250 ML PEN BTL ONE
--- OUTSIDE RECORDS SUMMARY | 2018-09-21 08:09 | XMS REPORT | Summary of Care ---
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 Allergies, Adverse Reactions, Alerts No Known Medication Allergies Medications metFORMIN 1000 mg oral tablet =1 tab, PO, BID, # 180 tab, Refill(s) 5, Pharmacy: [facility] [id number] Start Date: 02/26/18 Status: Ordered Results No data available for [...]
--- OUTSIDE RECORDS SUMMARY | 2018-09-21 08:09 | XMS REPORT | Continuity of Care Document ---
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 Role Phone [employer] Information Takipi Unavailable Unavailable Problems Problem Status Onset Date Classification Date Reported Comments Source Age-related osteoporosis without current pathological fracture 10/18/2017 04/30/2018 [facility] [place] Bilateral inguinal hernia 06/28/2017 07/01/2017 [facility] Diverticulosis 06/28/2017 07/01/2017 [facility] ABDOMINAL PAIN Active 06/28/2017 [facility] DX: M48.54XA=COLLAPSED VERTEBRA, NOT ELS Active 05/19/2016 [facility] Discharge Diagnosis: Acute constipation 05/05/2016 05/09/2016 [facility] Discharge Diagnosis: Compression fracture of T12 vertebra 05/05/2016 05/09/2016 [facility] Discharge Diagnosis: Hypertension 05/05/2016 05/09/2016 [facility] CONSTIPATION Active 05/05/2016 [facility] M81.8 - OTHER OSTEOPOROSIS WITHOUT CUR Active 05/22/2015 [facility] [place] Degenerative disorder of macula2, 3, 4 Active 03/31/2014 Problem 09/17/2018 Data migrated from [employer] on 09/24/14. Data migrated from [employer] on 08/19/14. Data migrated from [employer] on 08/16/14. [facility], CATHY [place],[facility] [place] Urinary [id number] Active 10/22/2013 Problem 09/15/2017 Data migrated from [employer] on 08/16/14. [facility] [place] [id number] Active 10/22/2013 Problem 09/17/2018 Data migrated from [employer] on 08/16/14. [facility] [place] Coronary arteriosclerosis1 Active 12/26/2012 Problem 09/17/2018 Data migrated from [employer] on 08/16/14. [facility] [place] Hearing loss5 Active 12/26/2012 Problem 09/17/2018 Data migrated from [employer] on 08/16/14. [facility], [facility] [place],[facility], [facility] [place] Hyperlipidemia6 Active 12/26/2012 Problem 09/17/2018 Data migrated from [employer] on 08/16/14. 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 [facility], [facility] [place], [facility], [facility] [place] Hypogonadism8 Active 12/26/2012 Problem 09/17/2018 Data migrated from [employer] on 08/16/14. [facility], [facility] [place], [facility], [facility] [place] Hypothyroidism9 Active 12/26/2012 Problem 09/17/2018 Data migrated from [employer] on 08/16/14. [facility], [facility] [place], [facility], [facility] [place] [id number] Active 12/26/2012 Problem 09/15/2017 Data migrated from [employer] on 08/16/14. [facility], [facility] [place], [facility], [facility] [place] [id number] Active 12/26/2012 Problem 09/15/2017 Data migrated from [employer] on 08/16/14. [facility], [facility] [place], [facility], [facility] [place] Warfarin therapy [id number] Active 12/26/2012 Problem 09/15/2017 Data migrated from [employer] on 08/16/14. [facility], [facility] [place], [facility], [facility] [place] [id number] Active 12/26/2012 Problem 09/17/2018 Data migrated from [employer] on 08/16/14. [facility], [facility] [place] Warfarin therapy Active 12/26/2012 Problem 05/23/2018 Data migrated from [employer] on 08/16/14. 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 Problem 09/17/2018 [facility], [facility] [place], [facility], [facility] [place] CABG x 3 - Coronary artery bypass grafts x 3 Active Problem 09/17/2018 [facility], [facility] [place], [facility], [facility] [place] Cancer of prostate Active Problem 09/17/2018 [facility], [facility] [place], [facility], [facility] [place] Diabetes mellitus Active Problem 09/15/2017 [facility], [facility] [place], [facility], [facility] [place] Diabetes Resolved Problem 09/17/2018 [facility], [facility], [facility] [place] BP (Confirmed) Resolved Problem 09/15/2017 [facility], [place] Cancer Resolved Problem 09/17/2018 [facility], [facility], [facility] [place] Obesity Active Problem 09/17/2018 [facility], [facility] [place], [facility], [facility] [place] Peripheral circulatory disorder associated with type 2 diabetes [id number] Active Problem 09/15/2017 Data migrated from [employer] on 08/16/14. [facility], [facility] [place], [facility], [facility] [place] Memory loss Active Problem 09/17/2018 [facility], [facility] [place] Anticoagulated Active Problem 09/17/2018 [facility], [facility] [place] Aortic stenosis Active Problem 09/17/2018 [facility], [facility] [place] Bilateral inguinal hernia Active Problem 09/17/2018 [facility], [facility] [place] Cholelithiasis Active Problem 09/17/2018 [facility], [facility] [place] Vertebral compression fracture Active Problem 09/17/2018 [facility], [facility] [place] Diverticulosis Active Problem 09/17/2018 [facility], [facility] [place] Dizziness Resolved Problem 09/17/2018 [facility], [facility] [place] History of CVA in adulthood Active Problem 09/17/2018 [facility], [facility] [place] S/p CABG (Confirmed) Active Problem 09/17/2018 [facility], [facility] [place] S/P coronary artery stent placement Active Problem 09/17/2018 [facility], [facility] [place] History of colon polyps Active Problem 09/17/2018 [facility], [facility] [place] Hypertension Active Problem 09/17/2018 [facility], [facility] [place] Nephrolithiasis Active Problem 09/17/2018 [facility], [facility] [place] Microscopic hematuria Active Problem 09/17/2018 [facility], [facility] [place] Osteopenia Active Problem 09/17/2018 [facility], [facility] Paroxysmal atrial fibrillation Active Problem 09/17/2018 [facility], [place] Peripheral circulatory disorder associated with type 2 diabetes [id number] Active Problem 09/17/2018 Data migrated from [facility] on 08/16/14. [facility], [facility] Tinnitus Active Problem 09/17/2018 [facility], [facility] Type 2 diabetes mellitus Active Problem 09/17/2018 [facility], [place] Vertigo Active Problem 09/17/2018 [facility], [facility] Scrotal hematoma Active Problem 05/23/2018 [facility] COLLAPSED VERTEBRA, NEC, THORACIC REGION Active [facility] Medications Medication Details Route Status Patient Instructions Ordering Provider Order Date Source Valsartan/Hydrochlorothiazide (Diovan Hct 320-25 Mg Tablet) 1 Each Tablet, Daily Active 05/07/2018 [facility] Metformin hydrochloride 1000 MG Oral Tablet =1 tab, PO, BID, # 180 tab, Refill(s) 5, Pharmacy: [facility] [id number] Active 02/26/2018 [facility] levothyroxine 125 mcg (0.125 mg) oral tablet 125 microgram=1 tab, PO, Daily, # 90 tab, 5 Refill(s), Pharmacy: [facility] [id number] Active 02/05/2018 [facility] Hydrochlorothiazide 12.5 MG Oral Capsule 12.5 mg=1 cap, PO, Daily, # 30 cap, 0 Refill(s), other Active 02/02/2018 [facility] irbesartan 300 mg oral tablet 300 mg=1 tab, PO, Daily, # 30 tab, 0 Refill(s), other Active 02/02/2018 [facility] levothyroxine 100 mcg (0.1 mg) oral tablet See Instructions, # 90 tab, Refill(s) 5, TAKE 1 TABLET BY MOUTH EVERY DAY IN THE MORNING, Pharmacy: [facility] [id number] No Longer Active 01/15/2018 [facility] pravastatin 10 mg oral tablet See Instructions, # 90 tab, Refill(s) 5, TAKE 1 TABLET BY MOUTH EVERY DAY, Pharmacy: [facility] [id number] Active 07/03/2017 [facility] Saline Flush 0.9% 10 mL, Route: IVP, Drug Form: INJ, Dosing Weight 81.818, kg, PRN, PRN Line Flush, Start date: 06/28/17 12:33:00 CDT, Duration: 30 day, Stop date: 07/28/17 12:32:00 CDTNotes: (Same as: BD Posiflush) Inactive 06/28/2017 [facility] Accu-Chek Aide Plus Blood Glucose Test Strips 1 ea, MISC, TID, Use for blood glucose monitoring., # 100 ea, Not insulin dependent, Does not use insulin pump, Last DM eval date 06/28/17, 11 Refill(s) Active 06/28/2017 [facility] Lactulose 667 MG/ML Oral Solution 10 gm=15 mL, PO, Daily, PRN constipation, X 5 day, # 75 mL, 0 Refill(s) Active 05/06/2016 [facility] POLYETHYLENE GLYCOL 3350 142 MG/ML Oral Solution [Miralax] 17 gm, PO, Bedtime, PRN Constipation, Dissolve in 8 oz. of water, X 10 day, # 255 gm, 1 Refill(s) Active 05/06/2016 [facility] POLYETHYLENE GLYCOL 3350 142 MG/ML Oral Solution [Miralax] 17 gm, PO, Bedtime, Dissolve in 8 oz. of water, X 7 day, # 1 ea, 1 Refill(s), Pharmacy: [facility] [id number] Active 05/06/2016 [facility] Acetaminophen/Codeine Phosphate (Tylenol # 3*) 1 Ea Tab Every 6 Hours as needed for Pain Active [facility] Amlodipine Besylate 10 Mg Tablet Bedtime Active [facility] Calcium Daily Active [facility] Docusate Sodium (Stool Softener) 50 Mg Capsule Daily Active [facility] Fish Oil/Dha/Epa (Fish Oil 1,200 Mg Fish Oil) 1 Each Capsule Bedtime Active [facility] Hydrochlorothiazide 25 Mg Tablet Daily Active [facility] Irbesartan 150 Mg Tablet Daily Active [facility] Levothyroxine Sodium 50 Mcg Tablet Daily Active [facility] Lovenox Twice A Day Active [facility] Magnesium Active [facility] Metformin Hcl (Metformin Hcl Er) 500 Mg Tab.er.24 Twice A Day Active [facility] Mu-Vits-Min Th/Lycopene/Lutein (Centrum Silver Tablet) 1 Each Tablet Daily Active [facility] Pravastatin Sodium 10 Mg Tablet Daily Active [facility] Sulfamethoxazole/Trimethoprim (Sulfamethoxazole-Tmp Ds Tablet) 1 Each Tablet Daily Active [facility] Warfarin Sodium 4 Mg Tablet Daily Active [facility] Allergies, Adverse Reactions, Alerts Substance Category Reaction Severity Reaction type Status Date Reported Comments Source No Known Medication Allergies Assertion Drug allergy [facility] Immunizations Immunization Date Given Site Status Last Updated Comments Source diphtheria/pertussis, acel/tetanus adult<sup>1</sup> 09/12/2017 Left deltoid completed [facility] Result Comment: PATIENT WAITED 15 MINUTES AND HAD NO REACTION. [facility], [place] pneumococcal 13-valent vaccine 12/05/2016 completed Cara [facility], CATH[place] pneumococcal 23-valent vaccine 05/13/2015 Left Deltoid completed [place] [facility], [place],[facility] CATHY [place] pneumococcal 23-valent vaccine 05/13/2015 completed Cara [facility], [facility] Results Order Name Results Value Reference Range Date Interpretation Comments Source Capillary blood glucose measurement by glucometer (mass/volume) 238 70 - 120 05/23/2018 [facility] Blood leukocytes automated count (number/volume) 9.16 4.8 - 10.8 05/23/2018 [facility] Blood erythrocytes automated count (number/volume) 4.17 4.3 - 5.7 05/23/2018 [facility] Blood hemoglobin measurement (moles/volume) 13.1 14.0 - 18.0 05/23/2018 [facility] Automated blood hematocrit (volume fraction) 37.5 38.2 - 49.6 05/23/2018 [facility] Automated erythrocyte mean corpuscular volume 89.9 81 - 99 05/23/2018 [facility] Automated erythrocyte mean corpuscular hemoglobin (mass per erythrocyte) 31.4 28 - 32 05/23/2018 [facility] Automated erythrocyte mean corpuscular hemoglobin concentration measurement (mass/volume) 34.9 31 - 35 05/23/2018 [facility] RDW BldCo-Rto 11.6 11.7 - 14.4 05/23/2018 [facility] Automated blood platelet count (count/volume) 253 140 - 360 05/23/2018 [facility] Automated blood segmented neutrophil count as percentage of total leukocytes 58.7 38.7 - 80.0 05/23/2018 [facility] Automated blood lymphocyte count as percentage ot total leukocytes 26.4 18.0 - 39.1 05/23/2018 [facility] Automated blood monocyte count as percentage of total leukocytes 10.0 4.4 - 11.3 05/23/2018 [facility] Automated blood eosinophil count as percentage of total leukocytes 3.6 0.0 - 6.0 05/23/2018 [facility] Automated blood basophil count as percentage of total leukocytes 1.0 0.0 - 1.0 05/23/2018 [facility] IM GRANULOCYTES % 0.3 0.0 - 1.0 05/23/2018 [facility] Automated blood neutrophil count 5.4 2.1 - 6.9 05/23/2018 [facility] Blood lymphocytes count (number/volume) 2.4 1.0 - 3.2 05/23/2018 [facility] Blood monocytes automated count (number/volume) 0.9 0.2 - 0.8 05/23/2018 [facility] Automated blood eosinophil count 0.3 0.0 - 0.4 05/23/2018 [facility] Automated blood basophil count (count/volume) 0.1 0.0 - 0.1 05/23/2018 [facility] Absolute Immature Granulocyte (auto 0.03 0 - 0.1 05/23/2018 [facility] Serum or plasma sodium measurement (moles/volume) 138 136 - 145 05/23/2018 [facility] Serum or plasma potassium measurement (moles/volume) 3.9 3.5 - 5.1 05/23/2018 [facility] Serum or plasma chloride measurement (moles/volume) 102 98 - 107 05/23/2018 [facility] Serum or plasma carbon dioxide, total measurement (moles/volume) 26 22 - 29 05/23/2018 [facility] Serum or plasma anion gap 13.9 8 - 16 05/23/2018 [facility] Serum or plasma urea nitrogen measurement (mass/volume) 11 7 - 26 05/23/2018 [facility] Serum or plasma creatinine measurement (mass/volume) 0.97 0.72 - 1.25 05/23/2018 [facility] Serum or plasma urea nitrogen/creatinine mass ratio 11 6 - 25 05/23/2018 [facility] Estimated glomerular filtration rate (GFR) determination > 60 60 05/23/2018 [facility] Glucose measurement 160 74 - 118 05/23/2018 [facility] Serum or plasma calcium measurement (mass/volume) 9.3 8.4 - 10.2 05/23/2018 [facility] Urine color determination YELLOW YELLOW 05/20/2018 [facility] Urine clarity CLEAR CLEAR 05/20/2018 [facility] Specific gravity of Urine by Test strip 1.015 1.010 - 1.025 05/20/2018 [facility] Urine pH measurement by automated test strip 8 5 - 7 05/20/2018 [facility] Urine leukocyte esterase detection by dipstick NEGATIVE NEGATIVE 05/20/2018 [facility] Urine nitrite detection NEGATIVE NEGATIVE 05/20/2018 [facility] Urine protein measurement by test strip (mass/volume) NEGATIVE NEGATIVE 05/20/2018 [facility] Urine glucose detection NEGATIVE NEGATIVE 05/20/2018 [facility] Urine ketones detection by automated test strip NEGATIVE NEGATIVE 05/20/2018 [facility] Urine urobilinogen measurement by test strip (mass/volume) 0.2 0.2 - 1 05/20/2018 [facility] Urine total bilirubin measurement (mass/volume) NEGATIVE NEGATIVE 05/20/2018 [facility] Urine erythrocytes detection NEGATIVE NEGATIVE 05/20/2018 [facility] Automated urine sediment leukocyte count by microscopy (number/high power field) NONE 0 - 5 05/20/2018 [facility] Erythrocytes detection in urine sediment by light microscopy NONE 0 - 5 05/20/2018 [facility] Bacteria detection in urine sediment by light microscopy NONE NONE 05/20/2018 [facility] Epithelial cells detection in urine sediment by light microscopy NONE NONE 05/20/2018 [facility] Prothrombin time (PT) in platelet poor plasma by coagulation assay 18.8 11.9 - 14.5 05/20/2018 [facility] INR in Platelet poor plasma by Coagulation assay 1.51 05/20/2018 [facility] Lactic Acid Level 13.9 4.5 - 19.8 05/20/2018 [facility] Serum or plasma total bilirubin measurement (mass/volume) 0.8 0.2 - 1.2 05/20/2018 [facility] Aspartate Amino Transf (AST/SGOT) 22 5 - 34 05/20/2018 [facility] Serum or plasma alanine aminotransferase measurement (enzymatic activity/volume) 34 0 - 55 05/20/2018 [facility] Serum or plasma protein measurement (mass/volume) 7.7 6.5 - 8.1 05/20/2018 [facility] Serum or plasma albumin measurement (mass/volume) 4.2 3.5 - 5.0 05/20/2018 [facility] Plasma globulin measurement (mass/volume) 3.5 2.3 - 3.5 05/20/2018 [facility] Serum or plasma albumin/globulin mass ratio 1.2 0.8 - 2.0 05/20/2018 [facility] Serum or plasma alkaline phosphatase measurement (enzymatic activity/volume) 94 40 - 150 05/20/2018 [facility] Activated partial thromboplastin time (aPTT) in platelet poor plasma bycoagulation assay 41.0 23.8 - 35.5 05/09/2018 [facility] URINE AND STOOL UA Sq Epi None Seen 06/28/2017 [facility] URINE AND STOOL UA Urobilinogen <=1.0 mg/dL 0.1 - 1.0 06/28/2017 [facility] URINE AND STOOL UA Bacteria Occasional /HPF None Seen /HPF 06/28/2017 [facility] URINE AND STOOL UA Bili Negative *NA* (06/28/17 1:56 PM) Negative 06/28/2017 [facility] URINE AND STOOL UA Ketones Negative mg/dL Negative mg/dL 06/28/2017 [facility] URINE AND STOOL UA Glucose 150 mg/dL Negative mg/dL 06/28/2017 [facility] URINE AND STOOL UA RBC 5 0 - 2 06/28/2017 [facility] URINE AND STOOL UA WBC 1 0 - 5 06/28/2017 [facility] URINE AND STOOL UA Leuk Est Negative (06/28/17 1:56 PM) Negative 06/28/2017 [facility] URINE AND STOOL UA Nitrite Negative (06/28/17 1:56 PM) Negative 06/28/2017 [facility] URINE AND STOOL UA Blood Small *ABN* (06/28/17 1:56 PM) Negative 06/28/2017 [facility] URINE AND STOOL UA Protein Negative mg/dL Negative mg/dL 06/28/2017 [facility] URINE AND STOOL UA pH 6.0 5.0 - 8.0 06/28/2017 [facility] URINE AND STOOL UA Spec Grav 1.012 <=1.030 06/28/2017 [facility] URINE AND STOOL UA Turbidity Clear (06/28/17 1:56 PM) Clear 06/28/2017 [facility] URINE AND STOOL UA Color Yellow *NA* (06/28/17 1:56 PM) Yellow 06/28/2017 [facility] CHEM PANEL eGFR 71 06/28/2017 Result Comment: The eGFR is calculated [...] BMI. [place] CHEM PANEL Alk Phos 61 39 - 136 06/28/2017 [facility] CHEM PANEL AST 13 0 - 37 06/28/2017 [facility] CHEM PANEL Calcium Lvl 9.8 8.5 - 10.5 06/28/2017 [facility] CHEM PANEL Albumin Lvl 3.6 3.5 - 5.0 06/28/2017 [facility] CHEM PANEL Total Protein 7.5 6.4 - 8.4 06/28/2017 [facility] CHEM PANEL ALT 21 0 - 65 06/28/2017 [facility] CHEM PANEL Bili Total 0.6 0.2 - 1.3 06/28/2017 [facility] CHEM PANEL CO2 32 24 - 32 06/28/2017 [facility] CHEM PANEL Chloride Lvl 99 95 - 109 06/28/2017 [facility] CHEM PANEL Potassium Lvl 4.4 3.5 - 5.1 06/28/2017 [facility] CHEM PANEL Sodium Lvl 139 135 - 145 06/28/2017 [facility] CHEM PANEL Creatinine Lvl 1.01 0.50 - 1.40 06/28/2017 [facility] CHEM PANEL Glucose Lvl 225 70 - 99 06/28/2017 [facility] CHEM PANEL BUN 14 7 - 22 06/28/2017 [facility] CHEM PANEL AGAP 12.4 10.0 - 20.0 06/28/2017 [facility] CHEM PANEL A/G Ratio 0.9 0.7 - 1.6 06/28/2017 [facility] CHEM PANEL Globulin 3.9 2.7 - 4.2 06/28/2017 [facility] CHEM PANEL B/C Ratio 14 6 - 25 06/28/2017 [facility] CHEM PANEL Magnesium Lvl 2.0 1.8 - 2.4 06/28/2017 [facility] CHEM PANEL Lipase Lvl 141 73 - 393 06/28/2017 [facility] CHEM PANEL Phosphorus 3.1 2.5 - 4.5 06/28/2017 [facility] HEMATOLOGY Basophils 1.0 0.0 - 1.0 06/28/2017 [facility] HEMATOLOGY Segs-Bands # 3.9 1.5 - 8.1 06/28/2017 [facility] HEMATOLOGY Basophils # 0.1 0.0 - 0.2 06/28/2017 [facility] HEMATOLOGY Lymphocytes # 1.3 1.0 - 5.5 06/28/2017 [facility] HEMATOLOGY Eosinophils # 0.2 0.0 - 0.5 06/28/2017 [facility] HEMATOLOGY Monocytes # 1.2 0.0 - 0.8 06/28/2017 [facility] HEMATOLOGY Lymphocytes 20.0 20.0 - 40.0 06/28/2017 [facility] Monocytes 18.4 2.0 - 12.0 06/28/2017 [facility] HEMATOLOGY Eosinophils 2.9 0.0 - 4.0 06/28/2017 [facility] Segs 57.7 45.0 - 75.0 06/28/2017 [facility] Platelet 198 133 - 450 06/28/2017 [facility] MPV 9.2 7.4 - 10.4 06/28/2017 [facility] WBC 6.7 3.7 - 10.4 06/28/2017 [facility] MCHC 34.3 32.0 - 36.0 06/28/2017 [facility] RDW 12.6 11.5 - 14.5 06/28/2017 [facility] MCV 91.5 80.0 - 94.0 06/28/2017 [facility] RBC 4.80 4.70 - 6.10 06/28/2017 [facility] Hgb 15.1 14.0 - 18.0 06/28/2017 [facility] Hct 43.9 42.0 - 54.0 06/28/2017 [facility] MCH 31.4 27.0 - 31.0 06/28/2017 [facility] URINE AND STOOL UA Blood Small *ABN* (05/05/16 10:57 PM) Negative 05/06/2016 [facility] URINE AND STOOL UA Nitrite Negative (05/05/16 10:57 PM) Negative 05/06/2016 [facility] URINE AND STOOL UA Glucose Negative mg/dL Negative mg/dL 05/06/2016 [facility] URINE AND STOOL UA WBC 1 0 - 5 05/06/2016 [facility] URINE AND STOOL UA RBC 1 0 - 2 05/06/2016 [facility] URINE AND STOOL UA Sq Epi None Seen 05/06/2016 [facility] URINE AND STOOL UA Leuk Est Negative (05/05/16 10:57 PM) Negative 05/06/2016 [facility] URINE AND STOOL UA Turbidity Clear (05/05/16 10:57 PM) Clear 05/06/2016 [facility] URINE AND STOOL UA Spec Grav 1.008 <=1.030 05/06/2016 [facility] URINE AND STOOL UA pH 7.0 5.0 - 8.0 05/06/2016 [facility] URINE AND STOOL UA Protein Negative mg/dL Negative mg/dL 05/06/2016 [facility] URINE AND STOOL UA Urobilinogen <=1.0 mg/dL 0.1 - 1.0 05/06/2016 [facility] URINE AND STOOL UA Color Ltyellow 05/06/2016 [facility] URINE AND STOOL UA Ketones Negative mg/dL Negative mg/dL 05/06/2016 [facility] URINE AND STOOL UA Bili Negative *NA* (05/05/16 10:57 PM) Negative 05/06/2016 [facility] CHEM PANEL eGFR 65 05/05/2016 Result Comment: The eGFR is calculated [...] should be multiplied by the estimated BMI. [facility] CHEM PANEL Bili Total 0.4 0.2 - 1.3 05/05/2016 [facility] CHEM PANEL Alk Phos 74 39 - 136 05/05/2016 [facility] CHEM PANEL AST 18 0 - 37 05/05/2016 [facility] CHE[facility] PANEL ALT 32 0 - 65 05/05/2016 [facility] CHE[facility] PAN[facility] Calcium Lvl 9.4 8.5 - 10.5 05/05/2016 [facility] Total Protein 7.8 6.4 - 8.4 05/05/2016 [facility] CHEM PAN[facility] Albumin Lvl 4.3 3.5 - 5.0 05/05/2016 [facility] CHE[facility] PAN[facility] Glucose Lvl 109 70 - 99 05/05/2016 [facility] CHE[facility] PANEL Chloride Lvl 96 95 - 109 05/05/2016 [facility] CHE[facility] PAN[facility] CO2 32 24 - 32 05/05/2016 [facility] Potassium Lvl 4.0 3.5 - 5.1 05/05/2016 [facility] Creatinine Lvl 1.10 0.50 - 1.40 05/05/2016 [facility] CHE[facility] PAN[facility] Sodium Lvl 136 135 - 145 05/05/2016 [facility] CHE[facility] BUN 18 7 - 22 05/05/2016 [facility] B/C Ratio 16 6 - 25 05/05/2016 [facility] Globulin 3.5 2.7 - 4.2 05/05/2016 [facility] A/G Ratio 1.2 0.7 - 1.6 05/05/2016 [facility] CHE[facility] PANEL AGAP 12.0 10.0 - 20.0 05/05/2016 [facility] HEMATOLOGY MCV 88.3 80.0 - 94.0 05/05/2016 [facility] HEMATOLOGY Platelet 266 133 - 450 05/05/2016 [facility] HEMATOLOGY Hct 42.8 42.0 - 54.0 05/05/2016 [facility] HEMATOLOGY RDW 12.9 11.5 - 14.5 05/05/2016 [facility] HEMATOLOGY MCHC 35.1 32.0 - 36.0 05/05/2016 [facility] HEMATOLOGY MCH 30.9 27.0 - 31.0 05/05/2016 [facility] HEMATOLOGY MPV 8.0 7.4 - 10.4 05/05/2016 [facility] HEMATOLOGY WBC 7.7 3.7 - 10.4 05/05/2016 [facility] HEMATOLOGY Hgb 15.0 14.0 - 18.0 05/05/2016 [facility] HEMATOLOGY RBC 4.85 4.70 - 6.10 05/05/2016 [facility] HEMATOLOGY Lymphocytes 27.2 20.0 - 40.0 05/05/2016 [facility] HEMATOLOGY Segs 57.8 45.0 - 75.0 05/05/2016 [facility] HEMATOLOGY Eosinophils # 0.4 0.0 - 0.5 05/05/2016 [facility] HEMATOLOGY Monocytes # 0.7 0.0 - 0.8 05/05/2016 [facility] HEMATOLOGY Basophils # 0.1 0.0 - 0.2 05/05/2016 [facility] HEMATOLOGY Basophils 1.1 0.0 - 1.0 05/05/2016 [facility] HEMATOLOGY Eosinophils 4.6 0.0 - 4.0 05/05/2016 [facility] HEMATOLOGY Monocytes 9.3 2.0 - 12.0 05/05/2016 [facility] HEMATOLOGY Segs-Bands # 4.4 1.5 - 8.1 05/05/2016 [facility] HEMATOLOGY Lymphocytes # 2.1 1.0 - 5.5 05/05/2016 [facility] Pathology Reports No Data Provided for This Section Diagnostic Reports Report Value Date Source Bone Density DXA [employer] MA MALE [...] for fracture. This exam was interpreted at [id number] for KAITY Del Toro 15. Rommel Bolton M.D., cm/kathrin:10/11/2017 11:22:32 Guest Attendant(s): Maryann Valiente [facility] 10/11/2017 YAHIR MORGAN [place] Chest 1view DX Clinical Indication: - evaluate right lung infiltrate? asymptomatic; Comparison: 08/03/2010 Technique: X-ray chest frontal projection FINDINGS: There is no consolidation, pleural effusion or pneumothorax. The heart is normal in size. The mediastinum and anthony are unremarkable. The patient is status post median sternotomy. IMPRESSION: No chest radiographic evidence of acute cardiopulmonary disease. SL: [place] 06/28/2017 [facility] Abdomen/Pelvis w IV contrast CT Clinical Indication: [...] Cholelithiasis 5. Bilateral fat-containing inguinal hernias 06/28/2017 [facility] Spine lumbar wo contrast CT Patient Name: FRANCE SCHAEFER : 1940; Age: 75 years Male MR: [id number] Study: Spine lumbar wo contrast CT 05/23/2016 2:52 PM [employer]OCI[employer] CLINICAL INDICATION: PT states he has a [...] changes of the lumbar spine as described. : [id number] 05/23/2016 [facility] Spine lumbar wo contrast MRI Patient Name: FRANCE SCHAEFER : 1940; Age: 75 years Male MR: [id number] Study: Spine lumbar wo contrast MRI 05/23/2016 3:04 PM [employer] ASSOCIATE CLINICAL INDICATION: As per pt c/o lower [...] of the lumbar spine as described. SL: [id number] 05/23/2016 [facility] Abdomen/Pelvis w IV contrast CT Patient Name: FRANCE SCHAEFER : 1940; Age: 75 years y/o Male MR: [id number] Study: Abdomen/Pelvis w IV contrast CT 05/05/2016 7:45 PM [employer] Ordering Physician: Earnest Platt MD Clinical Indication: [...] (In retrospect these were previously present on neck pinner radiograph of small bowel series dating 07/14/2006, [...] of significance is appreciated. 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 SL: PAUL 05/05/2016 [facility] Spine lumbar 2 or 3 views DX [...] with an abdomen CT. SL: 15 04/28/2016 CATHY [place] Scrotal/Testicle w Doppler US Study: Scrotal/Testicle w [...] epididymal tail. 5. Small right hydrocele. SL: [id number] 08/06/2015 [facility] [place] Bone Density D[employer] MA - Bone Density D[employer] MA MALE BONE DENSITY EVALUATION: 05/26/2015 RISK FACTORS: race. COMPARISON: 01/03/2013 Left total femur area using a Hologic unit from [facility] with reported normal fracture risk, BMD of 0.913g/cm2 and T-score of -0.80. 01/03/2013 Left femur neck using a Hologic unit from [facility] with reported medium fracture risk, BMD of 0.774g/cm2, T-score of -1.10 and Z- score of 0.10. 01/03/2013 AP L1-L4 region of spine using a Hologic unit from [facility] with reported high fracture risk, BMD of [...] This exam was dictated and interpreted by [id number] for KAITY Del Toro 15. Rommel Bolton M.D. cm/kathrin:05/29/2015 09:50:26 Guest Attendant: Darin GLOVER, [facility] 05/26/2015 YAHIR [place] Elbow 2 views DX Right elbow AP and lateral , Oct 27, 2014 01:03:00 PM HISTORY: Right elbow pain COMPARISON: None FINDINGS: No evidence for acute fracture. Real head is intact and located. Negative for joint effusion. There is however marked soft tissue swelling along the dorsum of the elbow. Vascular calcifications. IMPRESSION: Soft tissue swelling. No acute osseous abnormality. SL: 10/27/2014 [facility] Consultation Notes No Data Provided for This Section Discharge Summaries No Data Provided for This Section History and Physicals No Data Provided for This Section Vital Signs Vital Sign Value Date Comments Source Height 172.72 cm 05/24/2018 [facility] BMI Calculated 28.25 05/24/2018 [facility] Weight 84.29 05/24/2018 [facility] Systolic (mm Hg) 134 05/24/2018 [facility] Diastolic (mm Hg) 78 05/24/2018 [facility] Temperature Oral (F) 98.1 F 05/24/2018 [facility] Heart Rate 75 05/24/2018 Medical [facility] Heart Rate 61 02/02/2018 [facility] Temperature Oral (F) 98.0 F 02/02/2018 [facility] Systolic (mm Hg) 148 02/02/2018 [facility] Diastolic (mm Hg) 78 02/02/2018 [facility] Weight 87.443 02/02/2018 [facility] Systolic (mm Hg) 156 11/24/2017 [facility] Diastolic (mm Hg) 82 11/24/2017 [facility] Height 172.72 cm 11/24/2017 [facility] Heart Rate 67 11/24/2017 [facility] Temperature Oral (F) 97.7 F 11/24/2017 [facility] Weight 86.591 11/24/2017 [facility] BMI Calculated 29.03 11/24/2017 [facility] Height 172.72 cm 11/21/2017 [facility] Weight 87.017 11/21/2017 [facility] BMI Calculated 29.17 11/21/2017 [facility] Temperature Oral (F) 97.7 F 11/21/2017 [facility] Systolic (mm Hg) 165 11/21/2017 [facility] Diastolic (mm Hg) 79 11/21/2017 [facility] Heart Rate 54 11/21/2017 [facility] Weight 86.506 11/02/2017 [facility] [...] Group Temperature Oral (F) 97.4 F 06/28/2017 [facility] Systolic (mm Hg) 164 06/28/2017 [facility] Diastolic (mm Hg) 82 06/28/2017 [facility] Respitory Rate 15 06/28/2017 [facility] Systolic (mm Hg) 161 06/28/2017 [facility] Diastolic (mm Hg) 83 06/28/2017 [facility] Respitory Rate 12 06/28/2017 [facility] Systolic (mm Hg) 147 06/28/2017 [facility] Diastolic (mm Hg) 81 06/28/2017 [facility] Respitory Rate 23 06/28/2017 [facility] Weight 81.818 06/28/2017 [facility] Height 172.72 cm 06/28/2017 [facility] BMI Calculated 27.43 06/28/2017 [facility] Temperature Oral (F) 97.9 F 06/28/2017 [facility] Heart Rate 66 06/28/2017 [facility] Systolic (mm Hg) 134 06/28/2017 [facility] Diastolic (mm Hg) 80 06/28/2017 [facility] Heart Rate 64 06/28/2017 [facility] Temperature Oral (F) 98.0 F 06/28/2017 [facility] BMI Calculated 28.67 06/28/2017 [facility] Weight 85.54 06/28/2017 [facility] Height 172.72 cm 06/28/2017 [facility] Heart Rate 70 05/06/2016 [facility] Respitory Rate 20 05/06/2016 [facility] Systolic (mm Hg) 147 05/06/2016 [facility] Diastolic (mm Hg) 82 05/06/2016 [facility] Temperature Oral (F) 98.2 F 05/06/2016 [facility] Systolic (mm Hg) 160 05/06/2016 [facility] Diastolic (mm Hg) 77 05/06/2016 [facility] Temperature Oral (F) 98.0 F 05/06/2016 [facility] Heart Rate 68 05/06/2016 [facility] Respitory Rate 20 05/06/2016 [facility] Systolic (mm Hg) 197 05/06/2016 [facility] Diastolic (mm Hg) 101 05/06/2016 [facility] Heart Rate 64 05/06/2016 [facility] Respitory Rate 20 05/06/2016 [facility] Temperature Oral (F) 98.0 F 05/06/2016 [facility] Height 172.72 cm 05/05/2016 [facility] BMI Calculated 28.04 05/05/2016 [facility] Weight 83.636 05/05/2016 [facility] Encounters Location Location Details Encounter Type Encounter Number Reason For Visit Attending Provider ADM Date DC Date Status Source Outpatient [id number] FERNIE THOMSON 10/27/2014 Active [facility] Outpatient [id number] ALEXA TROTTER 11/10/2014 Active [facility] Outpatient [id number] ALEXAAQUILES TROTTER 05/13/2015 Active [facility] Outpatient Imaging [place] [facility] [id number] Alexa Lauren-Paul 05/26/2015 05/27/2015 [facility] [place] Outpatient [id number] ALEXA TROTTER 08/05/2015 Active [facility] Outpatient Imaging [place] [facility] [id number] Alexa Lauren-Paul 08/06/2015 08/07/2015 [facility] [place] Outpatient [id number] ALEXA TROTTER 11/11/2015 Active [facility] Out[facility] [id number] BOBBY FAGAN 01/27/2016 Active [facility] Outpatient [id number] BOBBY FAGAN 02/01/2016 Active [facility] Outpatient [id number] MAGDALENE CORA- PRATT 04/27/2016 Active [facility] Outpatient Imaging [place] [facility] [id number] Magdalene Cora-Pratt 04/28/2016 04/29/2016 [facility] [place] Outpatient [id number] ALEXA TROTTER 05/02/2016 Active [facility] Emergency [id number] Angelina Angela 05/05/2016 05/06/2016 [facility] Outpatient [id number] MELANIE ALMAGUER 05/18/2016 Active [facility] Outpatient [id number] Leif Danis 05/23/2016 05/24/2016 [facility] Outpatient [id number] LEIF DANIS 05/31/2016 Active [facility] Outpatient [id number] LEIF DANIS 07/05/2016 Active [facility] Outpatient [id number] NURSE VISIT 06/28/2017 Active [facility] Outpatient [id number] LATESHA BELLO 06/28/2017 [facility] Ambulatory Pre-Reg [id number] 06/28/2017 06/28/2017 [facility] Outpatient [id number] Latesha Bello 06/28/2017 06/29/2017 [facility] Emergency [id number] Refugio Obando 06/28/2017 06/28/2017 [facility] Phone Message [id number] 07/03/2017 07/05/2017 [facility] Phone Message [id number] 07/06/2017 07/08/2017 [facility] Phone Message [id number] 07/12/2017 07/14/2017 [facility] Outpatient [id number] NURSE VISIT 09/12/2017 Active [facility] Outpatient [id number] NURSE VISIT 09/12/2017 Active [facility] Ambulatory Pre-Reg [id number] 09/12/2017 09/12/2017 [facility] Outpatient [id number] Latesha Ace 09/12/2017 09/13/2017 [facility] Outpatient [id number] LATESHA ACE 10/03/2017 Active [facility] Outpatient [id number] Latesha Aec 10/03/2017 10/04/2017 [facility] Imaging [place] [facility] [id number] Latesha Ace 10/11/2017 10/12/2017 [facility] Registered Clinic [id number] MARISELA PRIETO MD 10/26/2017 [facility] Outpatient [id number] LATESHA ACE 11/02/2017 Active [facility] Outpatient [id number] Latesha Ace 11/02/2017 11/03/2017 [facility] Outpatient [id number] LATESHA ACE 11/21/2017 Active [facility] Outpatient [id number] Latesha Ace 11/21/2017 11/22/2017 [facility] Outpatient [id number] LATESHA ACE 11/24/2017 Active [facility] Outpatient [id number] Latesha Ace 11/24/2017 11/25/2017 [facility] [id number] MARISELA PRIETO MD 11/29/2017 [facility] Outside Medical Records [id number] 12/15/2017 12/17/2017 [facility] Phone Message [id number] 12/26/2017 12/28/2017 [facility] Phone Message [id number] 01/15/2018 01/17/2018 [facility] Registered [facility] [id number] MARISELA PRIETO MD 01/29/2018 [facility] Outpatient [id number] LATESHA ACE 02/02/2018 Active [facility] Outpatient [id number] Latesha Ace 02/02/2018 02/03/2018 [facility] Phone Message [id number] 02/26/2018 02/28/2018 [facility] [id number] MARISELA PRIETO MD 05/09/2018 [facility] Discharged Inpatient [id number] FRANCE DEVRIES MD 05/20/2018 05/23/2018 [facility] Outpatient [id number] MAGDALENE PRATT 05/21/2018 Active [facility] Ambulatory Pre-Reg [id number] Magdalene Conteh 05/21/2018 05/21/2018 [facility] Outpatient [id number] LATESHA ACE 05/24/2018 Active [facility] Outpatient [id number] Latesha Ace 05/24/2018 05/25/2018 [facility] Between Visit [id number] 05/26/2018 05/27/2018 [facility] Outpatient [id number] LATESHA ACE 09/27/2018 Active [facility] Procedures Procedure Code Date Perfomer Comments Source Cystoscopy with retrograde pyelography [id number] 05/21/2018 [facility] CYSTOSCOPY & URETER CATHETER 45593 05/09/2018 [facility] CYSTOSCOPY CHEMODENERVATION 52866 05/09/2018 [facility] REMOVAL OF TESTIS 50353 05/09/2018 [facility] Testicular ultrasound [id number] 01/29/2018 [facility] Dup-scan artl bob abdl/pel/scrot&/[place] 57356 01/29/2018 [facility] CYSTOSCOPY & URETER CATHETER [id number] 11/29/2017 [facility] REMOVE BLADDER STONE 41226 11/29/2017 [facility] X-ray of chest, two views [id number] 11/27/2017 [facility] Computed tomography of abdomen and pelvis without then with contrast [id number] 10/26/2017 [facility] Endoscopic prostatectomy [id number] [facility] Functional endoscopic sinus surgery - anterior ethmoidectomy and frontal recess dissection [id number] [facility] Hemorrhoidectomy [id number] [facility] Tonsillectomy [id number] [facility] Triple coronary bypass [id number] [facility] Endoscopic prostatectomy [id number] [facility] [place] Functional endoscopic sinus surgery - anterior ethmoidectomy and frontal recess dissection [id number] [facility] [place] Hemorrhoidectomy [id number] [facility] [place] Tonsillectomy [id number] [facility] [place] Triple coronary bypass [id number] [facility] [place] Endoscopic prostatectomy [id number] [facility] Functional endoscopic sinus surgery - anterior ethmoidectomy and frontal recess dissection [id number] [facility] Hemorrhoidectomy [id number] [facility] Tonsillectomy [id number] [facility] Triple coronary bypass [id number] [facility] Endoscopic prostatectomy [id number] [facility] [place] Functional endoscopic sinus surgery - anterior ethmoidectomy and frontal recess dissection [id number] [facility] [place] Hemorrhoidectomy [id number] [facility] [place] Tonsillectomy [id number] [facility] [place] Triple coronary bypass [id number] [facility] [place] Assessment and Plan No Data Provided for This Section Plan of Care Plan of Care Date Source Discharge Date 05/23/18 2:09pm Disposition HOME, SELF-CARE Instructions/Education Provided Post Operative Pain Prescriptions See Medication Section Referrals MARISELA PRIETO MD (Urology) Order Date: 1-2 Weeks Entered Date: 05/23/2018 1:05pm Address: [address] [place] [id number] Additional Instructions/Education RESUME COUMADIN AT OLD DOSE ON Monday05/26/18 HOME HEALTH NURSE TO REMOVE MARIAA DRAIN ON Monday05/28/18 OKAY TO SHOWER. CHANGE PAD TO MARIAA DRAIN DAILY AND NEEDED NO HEAVY LIFTING. NO STRAINING. NO LIFTING MORE THAN [address] UP WITH [address]. PRIETO INSTRUCTED. CALL THE OFFICE TO SCHEDULE AN APPOINTMENT 05/23/2018 [facility] Social History Social History Date Source Social History TypeResponse Smoking Status Former smoker; Type: Cigarettes; Previous treatment: None; Ready to change: No; Concerns about tobacco use in household: No; Exposure to Tobacco Smoke None; Cigarette Smoking Last 365 Days No; Reg Smoking Cessation Counseling No; Tobacco use per day: 1; Number of years: 30; Total pack years: 150; Started at age: 10.0; Stopped at age: 44; entered on: 05/24/18 05/24/2018 [facility] Smoking Status Start Date Stop Date Never Smoker 05/23/2018 [facility] Social History TypeResponse Smoking Status Former smoker; Type: Cigarettes; Previous treatment: None; Ready to change: No; Concerns about tobacco use in household: No; Exposure to Tobacco Smoke None; Cigarette Smoking Last 365 Days No; Reg Smoking Cessation Counseling No; Tobacco use per day: 1; Number of years: 30; Total pack years: 150; Started at age: 10.0; Stopped at age: 44; entered on: 02/02/18 02/02/2018 CATHY Allen Social History TypeResponse Smoking Status Former smoker; Type: Cigarettes; Previous treatment: None; Ready to change: No; Concerns about tobacco use in household: No; Exposure to Tobacco Smoke None; Cigarette Smoking Last 365 Days No; Reg Smoking Cessation Counseling No; Tobacco use per day: 1; Number of years: 30; Total pack years: 150; Started at age: 10.0; Stopped at age: 44; entered on: 06/28/17 06/28/2017 [facility] Social History TypeResponse Smoking Status Former smoker; Exposure to Tobacco Smoke None; Cigarette Smoking Last 365 Days No; Reg Smoking Cessation Counseling No 08/05/2015 CATHY Zhong Family History No Data Provided for This Section Advance Directives Order Name Results Value Date Source Advance Directives Advance Directives Directive Response Recorded Date/Time Does the patient have an advance directive? No 05/20/18 2:03pm If yes, is advance directive on file with [facility]? No 05/20/18 2:03pm If not on file with [facility] will patient provide a copy? Yes 05/20/18 2:03pm Do you have a Directive to Physician? Yes 05/20/18 10:38am Do you have a Medical Power of Application Analyst? Yes 05/20/18 10:38am Do you have an out of hospital Do Not Resuscitate Order? Yes 05/20/18 10:38am Do you have any special needs we should be aware of? U 05/20/18 10:38am Do you have a support person here with you today? Yes 05/20/18 10:38am Did patient receive Notice of Privacy Practices? Yes 05/20/18 10:38am Did patient receive patient rights and responsibilities? Yes 05/20/18 10:38am 05/23/2018 [facility] Functional Status No Data Provided for This Section
--- OUTSIDE RECORDS SUMMARY | 2018-09-21 08:10 | XMS REPORT | Summary of Care ---
Author Author [facility] Address Unknown Phone Unavailable Encounter HQ Jovanir_shonda(FIN) [id number] Date(s): 11/24/17 - 11/24/17 [place] [address] [facility] [address] [place], [place] [address]- [phone] Discharge Disposition: Home or Self Care Attending Physician: Nakul Simons MD Vital Signs Most recent to 1 oldest [Reference Range]: Height 172.72 cm (11/24/17 9:45 AM) Temperature Oral 97.7 DegF [96.4-99.1 DegF] (11/24/17 9:45 AM) Blood Pressure 156/82 mmHg [90-140/60-90 mmHg] *HI* (11/24/17 9:45 AM) Peripheral Pulse 67 bpm Rate [60-100 bpm] (11/24/17 9:45 AM) Weight 86.591 kg (11/24/17 9:45 AM) Body Mass Index 29.03 m2 (11/24/17 9:45 AM) Problem List Condition Effective Dates Status [...] 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
--- OUTSIDE RECORDS SUMMARY | 2018-09-21 08:10 | XMS REPORT | Summary of Care ---
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
--- OUTSIDE RECORDS SUMMARY | 2018-09-21 08:10 | XMS REPORT | Summary of Care ---
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 Name Role Phone Nakul Simons PCP Encounter HQ Encntr_shonda([facility]) [phone] Date(s): 02/02/18 - 02/02/[address] [place], [place] [address]- [phone] Discharge Disposition: Home or Self Care Attending Physician: Nakul Simons MD Vital Signs Most recent to 1 oldest [Reference Range]: Temperature Oral 98.0 DegF [96.4-99.1 DegF] (02/02/18 8:58 AM) Blood Pressure 148/78 mmHg [90-140/60-90 mmHg] *HI* (02/02/18 8:58 AM) Peripheral Pulse 61 bpm Rate [60-100 bpm] (02/02/18 8:58 AM) Weight 87.443 kg (02/02/18 8:58 AM) Problem List Condition Effective Dates Status [...] 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
--- OUTSIDE RECORDS SUMMARY | 2018-09-21 08:11 | XMS REPORT | Summary of Care ---
Author Author [facility] Address Unknown Phone Unavailable Encounter HQ Justa_shonda(FIN) [id number] Date(s): 11/21/17 - 11/21/17 [place] [id number] [facility] [address] [place], [place] [address]- [phone] Discharge Disposition: Home or Self Care Attending Physician: Nakul Simons MD Vital Signs Most recent to 1 oldest [Reference Range]: Height 172.72 cm (11/21/17 4:48 PM) Temperature Oral 97.7 DegF [96.4-99.1 DegF] (11/21/17 4:48 PM) Blood Pressure 165/79 mmHg [90-140/60-90 mmHg] *HI* (11/21/17 4:48 PM) Peripheral Pulse 54 bpm Rate [60-100 bpm] *LOW* (11/21/17 4:48 PM) Weight 87.017 kg (11/21/17 4:48 PM) Body Mass Index 29.17 m2 (11/21/17 4:48 PM) Problem List Condition Effective Dates Status Health [...] 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
--- OUTSIDE RECORDS SUMMARY | 2018-09-21 08:11 | XMS REPORT | Summary of Care ---
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
--- OUTSIDE RECORDS SUMMARY | 2018-09-21 08:11 | XMS REPORT | Summary of Care ---
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 kutsatlw17 Oeicrv84 12/26/12 Active Tinnitus(Confirmed) Active Type 2 diabetes Active mellitus(Confirmed) Urinary 10/22/13 Active loujjrqqnvii25 Vertigo(Confirmed) Active 1Data migrated from [employer] [...] Reactions, Alerts No Known Medication Allergies Medications levothyroxine 100 mcg (0.1 mg) oral tablet See Instructions, # 90 tab, Refill(s) 5, TAKE 1 TABLET BY MOUTH EVERY DAY IN THE MORNING, Pharmacy: [facility] [id number] Start Date: 01/15/18 Stop Date: 02/05/18 Status: Discontinued levothyroxine 125 mcg (0.125 mg) oral tablet 125 microgram=1 tab, PO, Daily, # 90 tab, 5 Refill(s), Pharmacy: [facility] [id number] Start Date: 02/05/18 Status: Ordered Results No data available for [...]
[2018-09-21 09:29] LABS: INR 0.99; PROTHROMBIN TIME 13.6 seconds (11.9-14.5)
[2018-09-21 09:30] LABS: PARTIAL THROMBOPLASTIN TIME 35.9 seconds (23.8-35.5)
[2018-09-21 09:36] LABS: ANION GAP 14.1 mmol/L (8-16); BLOOD UREA NITROGEN 16 mg/dL (7-26); BUN/CREATININE RATIO 20 (6-25); CALCIUM 9.3 mg/dL (8.4-10.2); CARBON DIOXIDE 26 mmol/L (22-29); CHLORIDE 105 mmol/L (98-107); EST GLOMERULAR FILTRATION RATE > 60 ML/MIN (60-); GLUCOSE 127 mg/dL (74-118); POTASSIUM 4.1 mmol/L (3.5-5.1); SODIUM 141 mmol/L (136-145)
[2018-09-21 12:20] VITALS: BP 137/70
--- NOTE | 2018-09-21 16:38 | Operative Report ---
DATE OF PROCEDURE: 09/21/2018 SURGEON: Sacha Watkins MD PREOPERATIVE DIAGNOSES: 1. Refractory urge incontinence. 2. Hematuria. POSTOPERATIVE DIAGNOSES: 1. Refractory urge incontinence. 2. Hematuria. OPERATION PERFORMED: 1. Cystourethroscopy with bilateral ureteral catheterization and retrograde ureteropyelography (separate procedure performed for the hematuria). 2. Interpretation of retrograde ureteropyelography. No radiologist present. 3. Supervision of fluoroscopy. No radiologist present. 4. Cystourethroscopy with intravesical injection of 200 units of Botox (separate procedure performed for the refractory urge incontinence). ANESTHESIA: General. COMPLICATIONS: None. CLINICAL SUMMARY: Wilmer Ray the exam Flor is a 77-year-old man who is status post radical perineal prostatectomy. The patient has done very well from a prostate cancer control. He is lost to follow up, but returned following gross hematuria episode. The patient has refractory urge incontinence, but has responded fairly well to Botox. He is aware of the risks of bleeding, infection, injury to adjacent structures, need for additional procedures and elected to proceed. OPERATIVE PROCEDURE IN DETAIL: Informed consent was verified. Wilmer Ray was properly identified taken to the operating room, placed on the cystoscopy table in supine position. Anesthesia was uneventfully begun. The patient was then carefully gently repositioned in dorsal lithotomy position. All pressure points were well padded. His genitalia were prepared and draped in usual sterile fashion. The 22.5-Bangladeshi cystoscope sheath with the visual obturator in place was atraumatically inserted. The patient's urethra was guided unremarkably. We then passed through normal sphincteric region through the wide-open urethrovesical anastomosis, which showed minimal amount of inflammation, but no tumors, no suspicious lesions. Panendoscopy of the bladder revealed normally positioned ureteral orifices. There were some mild trabeculations noted. There were no tumors, no stones, no diverticula. An 8-Bangladeshi catheter was used to cannulate each ureter and retrograde ureteral pyelograms were performed. Interpretation of retrograde ureteropyelography contrast was instilled in retrograde fashion bilaterally. There were no tumors, no stones, no diverticula , and unobstructed drainage was observed bilaterally fluoroscopically. There were numerous hemoclips noted within the pelvis from the prior surgery. 200 units of Botox were suspended and dissolved in 20 mL of sterile saline, they were injected in 1 mL aliquots in an even distribution throughout the supratrigonal bladder. The patient's bladder was drained. Cystoscope was withdrawn. A belladonna and opium suppository were placed. The patient was uneventfully reversed from anesthesia and taken to recovery room in stable condition. There were no complications to the procedure. He tolerated the procedure well. Exclusive postop instructions were given. We will follow the patient in the office. Prior to waking the patient, examination revealed that the patient had a 1 cm black head in the suprapubic region. We gently dilated the opening of this black head and cleaned out this black and sebaceous debris from this 1 cm wide cavity. We irrigated it and instructed the postoperatively for the next week to clean it twice a day, thoroughly by scrubbing it with a Q-tip with hydrogen peroxide and placing Neosporin on it. They are to monitor it and should there be any issues to follow up with his primary care physician about this issue. Sacha MD June [place]/MODL /[id number] cc: Nakul Simons MD
== END | disposition home or self-care (01) ==
LOC: OR 08:00
PROVIDERS: ATTEND Urology
DX: N39.41 Urge incontinence (principal); R31.9 Hematuria, unspecified; N32.89 Other specified disorders of bladder; N32.81 Overactive bladder; M54.9 Dorsalgia, unspecified; M19.90 Unspecified osteoarthritis, unspecified site; I48.91 Unspecified atrial fibrillation; I25.810 Atherosclerosis of coronary artery bypass graft(s) without angina pectoris; I10 Essential (primary) hypertension; E78.5 Hyperlipidemia, unspecified; E03.9 Hypothyroidism, unspecified; Z01.810 Encounter for preprocedural cardiovascular examination; Z01.812 Encounter for preprocedural laboratory examination; Z79.84 Long term (current) use of oral hypoglycemic drugs; Z79.01 Long term (current) use of anticoagulants; Z85.46 Personal history of malignant neoplasm of prostate; Z86.73 Personal history of transient ischemic attack (TIA), and cerebral infarction without residual deficits; Z95.1 Presence of aortocoronary bypass graft; Z87.891 Personal history of nicotine dependence
CPT/HCPCS: 36415 ×2; 52005; 52287; 74420; 80048; 82948; 85025; 85610; 85730; 93005; C1758; J0587; J0696; J1100; J1580; J2001; J2405; J2704; Q9967; J3010

== ENCOUNTER → 2018-12-13 | Outpatient (CLI) | payer MEDICARE ==
[~2018-12-13] MED LIST changes: -B&O 60MG R/S 60 MG SUPP PR ONE; -BOTULINUM TOXIN TYPE A 100 UNIT VIAL IM ONE; -CEFTRIAXONE SOD 1 GM/NS 50 ML 50 ML IV ONE; -DEXAMETHASONE SOD PHOS INJ 4 MG/ML VIAL ONE; -FENTANYL CITRATE/PF 100MCG/2 ML INJ ONE; -GENTAMICIN 80MG/NS 100 ML 100 ML IV ONE; -IOPAMIDOL 610MG/1ML 300 MG/ML VIAL IV ONE; -LIDOCAINE HCL 2% LOCAL INJ 5 ML SDV VIAL INJ ONE; -ONDANSETRON HCL INJ 2MG/ML 2ML 2 MG/ML VIAL ONE; -PROPOFOL IV EMULSION 10 MG/ML 20 ML VIAL ONE; -SEVOFLURANE INHAL SOLN 250 ML PEN BTL ONE
--- NOTE | 2018-12-13 13:31 | Diagnostic Imaging Report ---
Exam: KUB - 2 views Indication: Renal calculi Comparison: Abdomen and pelvis CT of 10/26/2017 Findings: 5 mm calcification overlying the medial lower pole of left kidney may represent a renal calculus versus vascular calcification. No other radiographically apparent renal calculi. Calcified gallstones in the right upper quadrant. Degenerative changes of the visualized spine. Surgical clips in the pelvis. Sclerotic osseous lesions of the right iliac and right femoral head. Impression: 5 mm calcification overlying the medial lower pole of left kidney may represent renal calculus versus vascular calcification. Cholelithiasis. Sclerotic osseous lesions of the right iliac bone and femoral head. Given prior prostatectomy, bone scan is recommended if there is suspicion for osseous metastatic disease. Signed by: Reginaldo Suresh MD on 12/13/2018 1:28 PM
== END ==
LOC: RAD 11:06
PROVIDERS: ATTEND Urology
DX: N20.0 Calculus of kidney (principal)
CPT/HCPCS: 74018

== ENCOUNTER → 2019-03-15 | Day surgery (SDC) | payer MEDICARE ==
[2019-03-14 10:30] LABS: BASOPHILS # (AUTO) 0.1 (0.0-0.1); BASOPHILS % 1.2 % (0.0-1.0); EOSINOPHILS # (AUTO) 0.3 (0.0-0.4); EOSINOPHILS % 4.1 % (0.0-6.0); HEMATOCRIT 43.4 % (38.2-49.6); HEMOGLOBIN 14.8 g/dL (14.0-18.0); LYMPHOCYTES # (AUTO) 2.3 (1.0-3.2); MEAN CORPUSCULAR HEMOGLOBIN 31.2 pg (28-32); MEAN CORPUSCULAR HGB CONC 34.1 g/dL (31-35); MEAN CORPUSCULAR VOLUME 91.4 fL (81-99); MONOCYTES # (AUTO) 0.7 (0.2-0.8); MONOCYTES % 10.1 % (4.4-11.3); NEUTROPHILS # (AUTO) 3.3 (2.1-6.9); NEUTROPHILS % 50.4 % (38.7-80.0); PLATELET COUNT 211 x10e3/uL (140-360); RED BLOOD COUNT 4.75 x10e6/uL (4.3-5.7)
[2019-03-14 10:47] LABS: BLOOD UREA NITROGEN 14 mg/dL (7-26); BUN/CREATININE RATIO 13 (6-25); CALCIUM 10.2 mg/dL (8.4-10.2); CARBON DIOXIDE 29 mmol/L (22-29); CHLORIDE 102 mmol/L (98-107); CREATININE, SERUM 1.05 mg/dL (0.72-1.25); EST GLOMERULAR FILTRATION RATE > 60 ML/MIN (60-); GLUCOSE 130 mg/dL (74-118); SODIUM 142 mmol/L (136-145)
--- NOTE | 2019-03-14 10:47 | Diagnostic Imaging Report ---
EXAM: CHEST 2 VIEWS DATE: 03/14/2019 9:51 AM INDICATION: Preoperative evaluation COMPARISON: 11/27/2017 FINDINGS: There are postsurgical changes from prior median sternotomy. The trachea is midline. The lungs are symmetrically expanded without evidence for large focal consolidation, pneumothorax, or significant pleural effusion. The cardiomediastinal silhouette is stable in appearance. Degenerative changes noted of the visualized spine. No acute osseous abnormality is identified. The surrounding soft tissues are unremarkable. IMPRESSION: No acute cardiopulmonary process identified. Signed by: Dr. Marcin Strauss MD on 03/14/2019 10:43 AM
--- NOTE | 2019-03-14 10:51 | Diagnostic Imaging Report ---
EXAM: ABDOMEN-1VIEW (KUB) DATE: 03/14/2019 9:51 AM INDICATION: Preoperative evaluation COMPARISON: CT renal stone study from 01/03/2019 FINDINGS: Calcified gallstones noted within the right upper quadrant. There are calcifications project over the bilateral renal shadows which likely reflect vascular calcifications as noted and better evaluated on the prior CT examination. Multiple surgical clips and phleboliths noted within the pelvis. Bowel gas pattern appears nonspecific but nonobstructive. Degenerative changes noted of the visualized spine. No acute osseous abnormality identified. IMPRESSION: Calcifications noted projecting over the bilateral renal shadows which likely reflect prominent vascular calcifications as noted and better evaluated on the prior CT examination. Radiographic assessment for renal stones is limited given prominent vascular calcifications. No other acute radiographic abnormality identified within the abdomen. Signed by: Dr. Marcin Strauss MD on 03/14/2019 10:48 AM
[~2019-03-15] MED LIST changes: +B&O 60MG R/S 60 MG SUPP PR ONE; +BOTULINUM TOXIN TYPE A 100 UNIT VIAL IM ONE; +CEFTRIAXONE SOD 1 GM/NS 50 ML 50 ML IV ONE; +DEXAMETHASONE SOD PHOS INJ 4 MG/ML VIAL ONE; +DOXAZOSIN MESYLA2 MG PO; +FENTANYL CITRATE/PF 100MCG/2 ML INJ ONE; +IOPAMIDOL 300MG/ML 50ML INFUS..BTL IV ONE; +LIDOCAINE HCL 2% LOCAL INJ 5 ML SDV VIAL INJ ONE; +ONDANSETRON HCL INJ 2MG/ML 2ML 2 MG/ML VIAL ONE; +PROPOFOL IV EMULSION 10 MG/ML 20 ML VIAL ONE; +SEVOFLURANE INHAL SOLN 250 ML PEN BTL ONE
--- NOTE | 2019-03-15 07:10 | NUR ---
SPIRITUAL CARE - Pre-Surgery Assessment: Pt in bed. Pt reported supportive attention from family and friends. Intervention: I provided pastoral presence, hospitality, and sympathetic listening. I acquainted pt with availability of volleyball assistant coach while hospitalized. Outcome: Pt expressed appreciation for visit. No need for follow up indicated at this time. HARDEEP Hendrixlain Spiritual Care Department O: [phone] Pager: [phone] ([phone] number calling from)
[2019-03-15 07:40] LABS: INR 0.97; PROTHROMBIN TIME 13.4 seconds (11.9-14.5)
[2019-03-15 07:41] LABS: PARTIAL THROMBOPLASTIN TIME 37.7 seconds (23.8-35.5)
[2019-03-15 11:50] VITALS: BP 121/74
--- NOTE | 2019-04-24 04:31 | Operative Report ---
DATE OF PROCEDURE: 03/15/2019 SURGEON: Sacha Watkins MD PREOPERATIVE DIAGNOSES: 1. Left nephrolithiasis. 2. Refractory urge incontinence. 3. Overactive bladder. POSTOPERATIVE DIAGNOSES: 1. Left nephrolithiasis. 2. Refractory urge incontinence. 3. Overactive bladder. OPERATION PERFORMED: Note, these were all staged procedures as part of multistaged, multistep process in managing patient's urolithiasis. 1. Left-sided extracorporeal shockwave lithotripsy (separate procedure performed with separate approach for the left nephrolithiasis). 2. Cystourethroscopy with bilateral ureteral catheterization and retrograde ureteropyelography (separate procedure performed for the urinary tract infection in light of the longstanding overactive bladder.). 3. Interpretation of the retrograde ureteropyelography. 4. Supervision of fluoroscopy, no radiologist present. 5. Cystourethroscopy with intravesical injection of Botox (separate procedure performed for the incontinence.). ANESTHESIA: General. COMPLICATIONS: None. CLINICAL SUMMARY: Wilmer Ray is a complicated 78-year-old man with a very complicated urological history. Please refer the prior charts as well as the office chart for details. He is brought for the above procedures. He is aware of the risks of bleeding, infection, injury to adjacent structures, need for additional procedures and elected to proceed. OPERATIVE PROCEDURE IN DETAIL: Informed consent was verified, Wilmer Ray was properly identified, taken to the operating room, placed on the lithotripsy table in supine position. Anesthesia was uneventfully begun. The patient's left nephrolithiasis was localized with biplanar fluoroscopy. A total of 2500 shocks were delivered to the 5 mm upper calyceal stone with fragmentation noted. The patient was then carefully, gently repositioned in the dorsal lithotomy position with all pressure points well padded. His genitalia were prepared and draped in the usual sterile fashion. The cystoscope sheath with a visual obturator in place was atraumatically inserted into the patient's urethra. It was guided down the unremarkable distal urethra to the bladder, through the normal sphincteric region, through the urethrovesical anastomosis, which was wide open without any sign of any cancer regrowth. There were some pieces of sand and that must have passed with lithotripsy. They were in the region of the bladder neck, went to the patient's bladder. Panendoscopy revealed grade 1-2 trabeculations, but no tumors and no suspicious lesions, no true diverticula. An 8-English catheter was used to cannulate each ureter and retrograde ureteropyelography was performed. Interpretation of retrograde ureteropyelography, contrast was instilled in retrograde fashion bilaterally. There were no tumors and there were no suspicious lesions. There was no hydronephrosis. Unobstructed drainage was observed bilaterally fluoroscopically. There were filling defects in the upper pole calyx on the left hand side consistent with fragmented stones as well as blood clots from the procedure. Nevertheless, unobstructed drainage was observed fluoroscopically. 100 units of Botox was dissolved in sterile saline. It was then injected in even aliquots throughout the supratrigonal bladder. The patient's bladder was drained. Cystoscope was withdrawn. Belladonna and opium suppository were placed. The patient was uneventfully reversed from anesthesia and taken to recovery room in stable condition. There were no complications to the procedure. He tolerated the procedure well. Explicit postop instructions were given. We will follow the patient up in the office. Of course, lifelong ongoing urological followup is a must. Sacha Watkins MD [place]/MODL /[id number] cc: MD Nakul Hough MD
== END | disposition home or self-care (01) ==
LOC: OR 06:44
PROVIDERS: ATTEND Urology
DX: N20.0 Calculus of kidney (principal); N39.41 Urge incontinence; N32.81 Overactive bladder; N32.89 Other specified disorders of bladder; N39.0 Urinary tract infection, site not specified; E11.22 Type 2 diabetes mellitus with diabetic chronic kidney disease; I12.9 Hypertensive chronic kidney disease with stage 1 through stage 4 chronic kidney disease, or unspecified chronic kidney disease; N18.9 Chronic kidney disease, unspecified; I48.0 Paroxysmal atrial fibrillation; I25.810 Atherosclerosis of coronary artery bypass graft(s) without angina pectoris; Z01.812 Encounter for preprocedural laboratory examination; Z01.818 Encounter for other preprocedural examination; Z79.01 Long term (current) use of anticoagulants; Z79.84 Long term (current) use of oral hypoglycemic drugs; Z95.1 Presence of aortocoronary bypass graft; Z85.46 Personal history of malignant neoplasm of prostate; Z87.891 Personal history of nicotine dependence
CPT/HCPCS: 36415 ×2; 50590; 52005; 52287; 71046; 74018; 80048; 82948; 85025; 85610; 85730; J0587; J0696; J1100; J2001; J2405; J2704; J3010; Q9967; C1769

== ENCOUNTER → 2019-08-02 | Day surgery (SDC) | payer MEDICARE, OTHER ==
[2019-07-30 10:30] LABS: BASOPHILS # (AUTO) 0.1 (0.0-0.1); BASOPHILS % 0.9 % (0.0-1.0); EOSINOPHILS # (AUTO) 0.2 (0.0-0.4); EOSINOPHILS % 3.5 % (0.0-6.0); HEMATOCRIT 39.4 % (38.2-49.6); HEMOGLOBIN 13.2 g/dL (14.0-18.0); LYMPHOCYTES # (AUTO) 1.4 (1.0-3.2); LYMPHOCYTES % 26.1 % (18.0-39.1); MEAN CORPUSCULAR HEMOGLOBIN 30.8 pg (28-32); MEAN CORPUSCULAR HGB CONC 33.5 g/dL (31-35); MEAN CORPUSCULAR VOLUME 91.8 fL (81-99); MONOCYTES # (AUTO) 0.4 (0.2-0.8); MONOCYTES % 7.5 % (4.4-11.3); NEUTROPHILS # (AUTO) 3.4 (2.1-6.9); NEUTROPHILS % 61.6 % (38.7-80.0); PLATELET COUNT 178 x10e3/uL (140-360); RED BLOOD COUNT 4.29 x10e6/uL (4.3-5.7); RED CELL DISTRIBUTION WIDTH 12.5 % (11.7-14.4)
--- NOTE | 2019-07-30 10:41 | Diagnostic Imaging Report ---
EXAM: CHEST 2 VIEWS DATE: 07/30/2019 10:17 AM INDICATION: Preoperative evaluation COMPARISON: 03/14/2019 FINDINGS: Post surgical changes from prior median sternotomy again noted. The trachea is midline. Rounded opacities noted projecting over the right apex on the PA view are external to the patient likely reflecting overlying clothing. The lungs are otherwise symmetrically expanded without evidence for focal consolidation, pneumothorax, or significant pleural effusion. The cardiac mediastinal silhouette is stable in appearance. Degenerative changes noted of the visualized spine. No acute osseous abnormality is identified. IMPRESSION: No acute cardiopulmonary process identified. Signed by: Dr. Marcin Strauss MD on 07/30/2019 10:38 AM
[2019-07-30 10:47] LABS: BLOOD UREA NITROGEN 19 mg/dL (7-26); BUN/CREATININE RATIO 19 (6-25); CALCIUM 9.5 mg/dL (8.4-10.2); CARBON DIOXIDE 27 mmol/L (22-29); CHLORIDE 106 mmol/L (98-107); EST GLOMERULAR FILTRATION RATE > 60 ML/MIN (60-); GLUCOSE 210 mg/dL (74-118); SODIUM 142 mmol/L (136-145)
[~2019-08-02] MED LIST changes: +CITRACAL-D3 MA1 EACH PO; -DEXAMETHASONE SOD PHOS INJ 4 MG/ML VIAL ONE
--- OUTSIDE RECORDS SUMMARY | 2019-08-02 07:52 | XMS REPORT | Summary of Care ---
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) Anticoagulated(Confi Active rmed) Aortic Active stenosis(Confirmed) Back pain(Confirmed) Active Bilateral inguinal Active hernia(Confirmed) Cholelithiasis(Confi Active rmed) Vertebral Active compression fracture(Confirmed) Coronary 12/26/12 Active arteriosclerosis(Con firmed)1 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, 3, 4 Diabetes(Confirmed) Resolved Diverticulosis(Confi Active rmed) Dizziness(Confirmed) Resolved 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 Active loss(Confirmed)5 History of CVA in Active adulthood(Confirmed) S/p CABG (coronary Active artery bypass graft)(Confirmed) History of prostate Active cancer(Confirmed) S/P coronary artery Active stent placement(Confirmed) History of colon Active polyps(Confirmed) Hyperlipidemia(Confi 12/26/12 Active rmed)6 Hypertension(Confirm Active ed) 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 Procedures Procedure Date Related Diagnosis Body Site Status Endoscopic prostatectomy Completed Functional endoscopic sinus surgery - Completed anterior ethmoidectomy and frontal rece ss dissection Hemorrhoidectomy Completed Tonsillectomy Completed Triple coronary bypass Completed Social History Social History Type Response Smoking Status Former smoker; Type: Cigare ttes; Previous treatment: None; Ready to change: No; Concerns about tobacco use in house hold: No; Exposure to Tobacco Smoke None; Cigarette Smoking Last 365 Days N o; Reg Smoking Cessation Counseling No; Tobacco use per day: 1; Number of y ears: 30; Total pack years: 150; Started [age] age: 10.0; Stopped at age: [age]; entered on: 07/25/19 Assessment and Plan No data available for this section
--- OUTSIDE RECORDS SUMMARY | 2019-08-02 07:52 | XMS REPORT | Summary of Care ---
Author Author [facility] Organization [facility] Address Unknown Phone Unavailable Care Team Providers Care Human Resources Clerk Name Role Phone Nakul Simons PCP Encounter HQ Encntr_shonda([place]) [id number] Date(s): 06/04/19 - 06/05/19 [facility] [address] [facility] [address] [place], [place] [address]- [phone] Vital Signs No data available for this [...] Hypogonadism8 12/26/12 Active Hypothyroidism(Confi 12/26/12 Active rmed)9 Influenza vaccine Active refused(Confirmed) Nephrolithiasis(Conf Active irmed) Cancer(Confirmed) Resolved Microscopic Active hematuria(Confirmed) Obesity(Confirmed) Active Osteopenia(Confirmed Active ) Paroxysmal atrial Active fibrillation(Confirm ed) 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
--- OUTSIDE RECORDS SUMMARY | 2019-08-02 07:52 | XMS REPORT | Summary of Care ---
Author Author [facility] Organization [facility] Address Unknown Phone Unavailable Care Team Providers Care Tower Truck Driver Name Role Phone Nakul Simons PCP Encounter HQ Encntr_shonda([place]) [id number] Date(s): 01/28/19 - 01/29/19 [place] [address] [facility] [address] [place], [place] [address]- [phone] Vital Signs No data available for this [...] circulatory disorder associated with type 2 diabetes qekmjusu99 Zfwoqm41 12/26/12 Active Tinnitus(Confirmed) Active Type 2 diabetes Active mellitus(Confirmed) Urinary 10/22/13 Active rhcdixdllosl33 Vertigo(Confirmed) Active 1Data migrated from [employer] [...]
--- OUTSIDE RECORDS SUMMARY | 2019-08-02 07:52 | XMS REPORT | Summary of Care ---
Author Author [facility] Organization [facility] Address Unknown Phone Unavailable Care Team Providers Care Needlemaker Name Role Phone Nakul Simons PCP Encounter HQ Encntr_shonda([place]) [phone] Date(s): 07/25/19 - 07/25/[address] [place], [place] [address]- [phone] Attending Physician: Nakul Simons MD Vital Signs [...] circulatory disorder associated with type 2 diabetes xhoiebqf68 Skin Active lesion(Confirmed) Gluiqw08 12/26/12 Active Tinnitus(Confirmed) Active Type 2 diabetes Active mellitus(Confirmed) Urinary 10/22/13 Active cengqphgtpva47 Vertigo(Confirmed) Active 1Data migrated from [employer] [...]
--- OUTSIDE RECORDS SUMMARY | 2019-08-02 07:52 | XMS REPORT | Summary of Care ---
Author Author [facility] Organization [facility] Address Unknown Phone Unavailable Care Team Providers Care Telephone Plant Power Operator Name Role Phone Nakul Simons PCP Encounter HQ Hoodntr_shonda([place]) [id number] Date(s): 07/29/19 - 07/30/19 [facility] [address] [facility] [address] [place], [place] [address]- [phone] Vital Signs No data available for this [...] circulatory disorder associated with type 2 diabetes bkdrojov14 Skin Active lesion(Confirmed) Ygjlgo75 12/26/12 Active Tinnitus(Confirmed) Active Type 2 diabetes Active mellitus(Confirmed) Urinary 10/22/13 Active hujwlvstrhdq47 Vertigo(Confirmed) Active 1Data migrated from [employer] [...]
--- OUTSIDE RECORDS SUMMARY | 2019-08-02 07:52 | XMS REPORT | Summary of Care ---
Author Author [facility] Organization [facility] Address Unknown Phone Unavailable Encounter HQ Just[employer]_shonda(FIN) [id number] Date(s): 01/24/19 - 01/24/19 [facility] [address] [facility] [address] [place], [place] [address]- [phone] Discharge Disposition: Home or Self Care Attending Physician: Nakul Simons MD Vital Signs Most recent to 1 oldest [Reference Range]: Temperature Oral 98.5 DegF [96.4-99.1 DegF] (01/24/19 9:20 AM) Blood Pressure 139/89 mmHg [90-140/60-90 mmHg] (01/24/19 9:20 AM) Peripheral Pulse 74 bpm Rate [60-100 bpm] (01/24/19 9:20 AM) Weight 84.688 kg (01/24/19 9:20 AM) Problem List Condition Effective Dates Status [...] circulatory disorder associated with type 2 diabetes [id number] 12/26/12 Active Tinnitus(Confirmed) Active Type 2 diabetes Active mellitus(Confirmed) Urinary 10/22/13 Active [id number] Vertigo(Confirmed) Active 1Data migrated from [employer] [...] Alerts No Known Medication Allergies Medications No Known Medications Results No data [...]
--- OUTSIDE RECORDS SUMMARY | 2019-08-02 07:52 | XMS REPORT | Summary of Care ---
Author Author [facility] Organization [facility] Address Unknown Phone Unavailable Care Team Providers Care Administrative Technician Name Role Phone Nakul Simons PCP Encounter HQ Encntr_alias(FIN) [id number] Date(s): 09/28/18 - 09/29/18 [place] [id number] [facility] [address] [place], [place] [address]- [phone] Vital Signs No data available for this [...] circulatory disorder associated with type 2 diabetes [id number] 12/26/12 Active Tinnitus(Confirmed) Active Type 2 diabetes Active mellitus(Confirmed) Urinary 10/22/13 Active [id number] Vertigo(Confirmed) Active 1Data migrated from [employer] [...] Stopped at age: [age]; entered on: 09/27/18 Assessment and Plan No data available for this section
--- OUTSIDE RECORDS SUMMARY | 2019-08-02 07:52 | XMS REPORT | Continuity of Care Document ---
Author Author Santhosh Garnett Information [place] Organization [facility] Address Unknown Phone Unavailable Care Team Providers Care Stress Test Technician Name Role Phone [employer] Information [employer] Unavailable Un available Problems Problem Status Onset Date Classification Date Reported Comments Source Age-related osteoporosis without current pathological fracture 10/18/2017 04/30/2018 [facility] [place] Bilateral inguinal hernia, without obstr uction or gangrene, not specified as recurrent 06/28/2017 07/01/2017 [facility] Diverticulosis of intestine, part unspec ified, without perforation or abscess without bleeding 06/28/2017 07/01/2017 [facility] ABDOMINAL PAIN Active 06/28/2017 [facility] DX: M48.54XA=COLLAPSED VERTEBRA, NOT ELS Active 05/19/2016 [facility] Discharge Diagnosis: Acute constipation 05/05/2016 05/09/2016 [facility] Discharge Diagnosis: Compression fractur e of T12 vertebra 05/05/2016 05/09/2016 [facility] Discharge Diagnosis: Hypertension 05/05/2016 05/09/2016 [facility] CONSTIPATION Active 05/05/2016 [facility] M81.8 - OTHER OSTEOPOROSIS WITHOUT CUR Active 05/22/2015 [facility] [place] Degenerative disorder of macula (disorder) Active 03/31/2014 Problem 08/01/2019 Data migrated from [employer] on 09/24/14. Data migrated from [employer] on 08/19/14. Data migrated from [employer] on 08/16/14. [facility] [place] Urinary incontinence (finding) Active 10/22/2013 Problem 08/01/2019 Data migrated from [employer] on 08/16. [facility] [place] Coronary arteriosclerosis (disorder) Active 12/26/2012 Problem 08/01/2019 Data migrated from [employer] on 08/16. [facility] [place] Hearing loss (finding) Active 12/26/2012 Problem 08/01/2019 Data migrated from [employer] on 08/16. [facility], [facility] [place] [place], [facility] [place] Hyperlipidemia (disorder) Acti ve 12/26/2012 Problem 08/01/2019 Data migrated from [employer] on 08/16. [facility], [facility] [place] [place], [facility] [place] Hypertensive heart disease without conge stive heart failure (disorder) Resolved 12/26/2012 Problem 08/01/2019 Data migrated from [employer] on 08/16/14. [facility], [facility] [place] [place] [place] Hypogonadism (disorder) Active 12/26/2012 Problem 08/01/2019 Data migrated from [employer] on 08/16. [facility], [facility] [place] [place], [facility] [place] Hypothyroidism (disorder) Acti ve 12/26/2012 Problem 08/01/2019 Data migrated from [employer] on 08/16. [facility], [facility] [place] [place] [place] Smoker (finding) Active 12/26/2012 Problem 08/01/2019 Data migrated from [employer] on 08/16. [facility], [facility] [place] [place], [facility] [place] Warfarin therapy started (regime/therapy) Active 12/26/2012 Problem 05/23/2018 Data migrated from [employer] on 08/16/14. [facility], [facility] [place] [place], [facility] [place] Osteoporosis (disorder) Active 12/26/2012 Problem 09/15/2017 Data migrated from [employer] on 08/16. 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) Active Problem 10/01/2018 [facility], [facility] [place] [place], [facility] [place] Malignant tumor of prostate (disorder) Active Problem [facility], [facility] [place] [place], [facility] [place] Compression fracture of vertebral column (disorder) Active Problem 08/01/2019 [facility], [facility] [place] Diabetes mellitus (disorder) R esolved Problem [facility], [facility] [place], [place], [facility] [place] Diverticular disease (disorder) Active Problem [facility], [facility] [place] Dizziness (finding) Resolved Problem 08/01/2019 [facility], [facility] [place] History of - CVA (context-dependent category) Active Problem 08/01/2019 [facility], [facility] [place] History of - coronary artery bypass roosevelt ting (context-dependent category) Active Prob jane 08/01/2019 [facility], [facility] [place] History of placement of stent for muhammad ry artery disease (situation) Active Prob jane 08/01/2019 [facility], [facility] [place] History of polyp of colon (situation) Active Problem [facility], [facility] [place] Hypertensive disorder, systemic arterial (disorder) Active Problem 08/01/2019 [facility], [place] [place] Kidney stone (disorder) Active Problem 08/01/2019 [facility], [facility] [place] Malignant neoplastic disease (disorder) Resolved Problem 08/01/2019 [facility], [place] [place] Microscopic hematuria (disorder) Active Problem [facility], [facility] [place] Obesity (disorder) Active Problem 08/01/2019 [facility], [facility] [place], [place], [facility] [place] Osteopenia (disorder) Active Problem 08/01/2019 [facility], [facility] [place] Paroxysmal atrial fibrillation (disorder) Active Problem 08/01/2019 [facility], [facility] [place] 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 [facility], [facility] [place] [place], [facility] [place] Tinnitus (finding) Active Problem 08/01/2019 [facility], [facility] [place] Diabetes mellitus type 2 (disorder) Active Problem [facility], [facility] [place] Vertigo (finding) Active Problem 08/01/2019 [facility], [facility] [place] History of malignant neoplasm of prostate (situation) Active Problem 08/01/2019 [facility] Backache (finding) Active Problem 08/01/2019 [facility] Skin lesion (disorder) Active Problem 08/01/2019 [facility] COLLAPSED VERTEBRA, NEC, THORACIC REGION Active [facility] Medications Medication Details Route Status Patient Instructions Ordering Provider Order Date Source Metformin hydrochloride 1000 MG Oral Tablet = 1 tab, PO, BID, # 180 tab, 1 Refill(s), Pharmacy: [facility][id number] Active 06/04/2019 [facility] Metformin hydrochloride 1000 MG Oral Tablet = 1 tab, PO, BID, # 180 tab, Refill(s) 5, Pharmacy: [facility] [id number] Active 02/26/2018 [facility] levothyroxine 125 mcg (0.125 mg) oral tablet 125 microgram = 1 tab, PO, Daily, # 90 tab, 5 Refill(s), Pharmacy: [facility] [id number] Active 02/05/2018 [facility] Hydrochlorothiazide 12.5 MG Oral Capsule 12.5 mg = 1 cap, PO, Daily, # 30 cap, 0 Refill(s), other Active 02/02/2018 [facility] irbesartan 300 mg oral tablet 300 mg = 1 tab, PO, Daily, # 30 tab, 0 Refill(s), other Active 02/02/2018 [facility] levothyroxine 100 mcg (0.1 mg) oral tablet See Instructions, # 90 tab, Refill(s) 5, TAKE 1 TABLET BY MOUTH EVERY DAY IN THE MORNING, Pharmacy: [facility] [id number] No Longer Active 01/15/2018 [facility] pravastatin 10 mg oral tablet See Instructions, # 90 tab, Refill(s) 5, TAKE 1 TABLET BY MOUTH EVERY DAY, Pharmacy: [facility] [id number] Active 07/03/2017 [facility] Saline Flush 0.9% Notes: (Same as: BD Posiflush) Inactive 06/28/2017 [facility] Accu-Chek Aide Plus Blood Glucose Test Strips 1 ea, MISC, TID, Use for blood glucose monitoring., # 100 ea, Not insulin dependent, Does not use insulin pump, Last DM eval date 06/28/17, 11 Refill(s) Active 06/28/2017 [facility] Lactulose 667 MG/ML Oral Solution 10 gm = 15 mL, PO, Daily, PRN constipation, X 5 day, # 75 mL, 0 Refill(s) Active 05/06/2016 [facility] POLYETHYLENE GLYCOL 3350 142 MG/ML Oral Solution [Miralax] 17 gm, PO, Bedtime, PRN Constipation, Di ssolve in 8 oz. of water, X 10 day, # 255 gm, 1 Refill(s) Active 05/06/2016 [facility] POLYETHYLENE GLYCOL 3350 142 MG/ML Oral Solution [Miralax] 17 gm, PO, Bedtime, Dissolve in 8 oz. of water, X 7 day, # 1 ea, 1 Refill(s), [id number] Active 05/06/2016 [facility] Allergies, Adverse Reactions, Alerts Substance Category Reaction Severity Reaction type Status Date Reported Comments Source No Known Medication Allergies Assertion Drug aller gy [facility] Immunizations Immunization Date Given Site Status Last Updated Comments Source diphtheria/pertussis, acel/tetanus adult<sup>1</sup> 09/12/2017 Left deltoid completed [facility]a Result Comment: PATIENT WAITED 15 MINUTES AND HAD NO REACTION. [facility], [facility] [place] pneumococcal 13-valent vaccine 12/05/2016 completed Keagan moses [facility], [facility] [place] pneumococcal 23-valent vaccine 05/13/2015 Left Deltoid completed [facility] [place] pneumococcal 23-valent vaccine 05/13/2015 completed Keagan moses [facility], [facility] [place] Results Order Name Results Value Reference Range Date Interpretation Comments Source URINE AND STOOL UA Sq Epi None Seen 06/28/2017 [facility] URINE AND STOOL UA Urobilinogen <=1.0 mg/dL 0.1 - 1.0 06/28/2017 [facility] URINE AND STOOL UA Bacteria Occasional /HPF None Seen /HPF 06/28/2017 [facility] URINE AND STOOL UA Bili Negative *NA* (06/28/17 1:56 PM) Negative 06/28/2017 [facility] URINE AND STOOL UA Ketones Negative mg/dL Negative mg/dL 06/28/2017 [facility] URINE AND STOOL UA Glucose 150 mg/dL Negative mg/dL 06/28/2017 [facility] URINE AND STOOL UA RBC 5 0 - 2 06/28/2017 [facility] URINE AND STOOL UA WBC 1 0 - 5 06/28/2017 [facility] URINE AND STOOL UA Leuk Est Negative (06/28/17 1:56 PM) Negative 06/28/2017 [facility] URINE AND STOOL UA Nitrite Negative (06/28/17 1:56 PM) Negative 06/28/2017 [facility] URINE AND STOOL UA Blood Small *ABN* (06/28/17 1:56 PM) Negative 06/28/2017 [facility] URINE AND STOOL UA Protein Negative mg/dL Negative mg/dL 06/28/2017 [facility] URINE AND STOOL UA pH 6.0 5.0 - 8.0 06/28/2017 [facility] URINE AND STOOL UA Spec Grav 1.012 <=1.030 06/28/2017 [facility] URINE AND STOOL UA Turbidity Clear (06/28/17 1:56 PM) Clear 06/28/2017 [facility] URINE AND STOOL UA Color Yellow *NA* (06/28/17 1:56 PM) Yellow 06/28/2017 [facility] CHEM PANEL eGFR 71 06/28/2017 Result Comment: [...] PANEL AST 13 0 - 37 06/28/2017 [facility] CHEM PANEL Calcium Lvl 9.8 8.5 - 10.5 06/28/2017 [facility] CHEM PANEL Albumin Lvl 3.6 3.5 - 5.0 06/28/2017 [facility] CHEM PANEL Total Protein 7.5 6.4 - 8.4 06/28/2017 [facility] CHEM PANEL ALT 21 0 - 65 06/28/2017 [facility] CHEM PANEL Bili Total 0.6 0.2 - 1.3 06/28/2017 [facility] CHEM PANEL CO2 32 24 - 32 06/28/2017 [facility] CHEM PANEL Chloride Lvl 99 95 - 109 06/28/2017 [facility] CHEM PANEL Potassium Lvl 4.4 3.5 - 5.1 06/28/2017 [facility] CHEM PANEL Sodium Lvl 139 135 - 145 06/28/2017 [facility] CHEM PANEL Creatinine Lvl 1.01 0.50 - 1.40 06/28/2017 [facility] CHEM PANEL Glucose Lvl 225 70 - 99 06/28/2017 [facility] CHEM PANEL BUN 14 7 - 22 06/28/2017 [facility] CHEM PANEL AGAP 12.4 10.0 - 20.0 06/28/2017 [facility] CHEM PANEL A/G Ratio 0.9 0.7 - 1.6 06/28/2017 [facility] CHEM PANEL Globulin 3.9 2.7 - 4.2 06/28/2017 [facility] CHEM PANEL B/C Ratio 14 6 - 25 06/28/2017 [facility] CHEM PANEL Magnesium Lvl 2.0 1.8 - 2.4 06/28/2017 [facility] CHEM PANEL Lipase Lvl 141 73 - 393 06/28/2017 [facility] CHEM PANEL Phosphorus 3.1 2.5 - 4.5 06/28/2017 [facility] HEMATOLOGY Basophils 1.0 0.0 - 1.0 06/28/2017 [facility] HEMATOLOGY Segs-Bands # 3.9 1.5 - 8.1 06/28/2017 [facility] HEMATOLOGY Basophils # 0.1 0.0 - 0.2 06/28/2017 [facility] HEMATOLOGY Lymphocytes # 1.3 1.0 - 5.5 06/28/2017 [facility] HEMATOLOGY Eosinophils # 0.2 0.0 - 0.5 06/28/2017 [facility] Monocytes # 1.2 0.0 - 0.8 06/28/2017 [facility] HEMATOLOGY Lymphocytes 20.0 20.0 - 40.0 06/28/2017 [facility] Monocytes 18.4 2.0 - 12.0 06/28/2017 [facility] Eosinophils 2.9 0.0 - 4.0 06/28/2017 [facility] Segs 57.7 45.0 - 75.0 06/28/2017 [facility] Platelet 198 133 - 450 06/28/2017 [facility] MPV 9.2 7.4 - 10.4 06/28/2017 [facility] WBC 6.7 3.7 - 10.4 06/28/2017 [facility] MCHC 34.3 32.0 - 36.0 06/28/2017 [facility] RDW 12.6 11.5 - 14.5 06/28/2017 [facility] MCV 91.5 80.0 - 94.0 06/28/2017 [facility] RBC 4.80 4.70 - 6.10 06/28/2017 [facility] Hgb 15.1 14.0 - 18.0 06/28/2017 [facility] Hct 43.9 42.0 - 54.0 06/28/2017 [facility] MCH 31.4 27.0 - 31.0 06/28/2017 [facility] URINE AND STOOL UA Blood Small *ABN* (05/05/16 10:57 PM) Negative 05/06/2016 [facility] URINE AND STOOL UA Nitrite Negative (05/05/16 10:57 PM) Negative 05/06/2016 [facility] URINE AND STOOL UA Glucose Negative mg/dL Negative mg/dL 05/06/2016 [facility] URINE AND STOOL UA WBC 1 0 - 5 05/06/2016 [facility] URINE AND STOOL UA RBC 1 0 - 2 05/06/2016 [facility] URINE AND STOOL UA Sq Epi None Seen 05/06/2016 [facility] URINE AND STOOL UA Leuk Est Negative (05/05/16 10:57 PM) Negative 05/06/2016 [facility] URINE AND STOOL UA Turbidity Clear (05/05/16 10:57 PM) Clear 05/06/2016 [facility] URINE AND STOOL UA Spec Grav 1.008 <=1.030 05/06/2016 [facility] URINE AND STOOL UA pH 7.0 5.0 - 8.0 05/06/2016 [facility] URINE AND STOOL UA Protein Negative mg/dL Negative mg/dL 05/06/2016 [facility] URINE AND STOOL UA Urobilinogen <=1.0 mg/dL 0.1 - 1.0 05/06/[address] [facility] [address] URINE AND STOOL UA Color Ltyellow 05/06/2016 [facility] URINE AND STOOL UA Ketones Negative mg/dL Negative mg/dL 05/06/2016 [facility] URINE AND STOOL UA Bili Negative *NA* (05/05/16 10:57 PM) Negative 05/06/2016 [facility] CHEM PANEL eGFR 65 05/05/2016 Result Comment: [...] should be multiplied by the estimated BMI. [facility] CHEM PANEL Bili Total 0.4 0.2 - 1.3 05/05/2016 [facility] CHEM PANEL Alk Phos 74 39 - 136 05/05/2016 [facility] CHEM PANEL AST 18 0 - 37 05/05/2016 [facility] CHEM PANEL ALT 32 0 - 65 05/05/2016 [facility] CHEM PANEL Calcium Lvl 9.4 8.5 - 10.5 05/05/2016 [facility] CHEM PANEL Total Protein 7.8 6.4 - 8.4 05/05/2016 [facility] CHEM PANEL Albumin Lvl 4.3 3.5 - 5.0 05/05/2016 [facility] CHEM PANEL Glucose Lvl 109 70 - 99 05/05/2016 [facility] CHEM PANEL Chloride Lvl 96 95 - 109 05/05/2016 [facility] CHEM PANEL CO2 32 24 - 32 05/05/2016 [facility] CHEM PANEL Potassium Lvl 4.0 3.5 - 5.1 05/05/2016 [facility] CHEM PANEL Creatinine Lvl 1.10 0.50 - 1.40 05/05/2016 [facility] CHEM PANEL Sodium Lvl 136 135 - 145 05/05/2016 [facility] CHEM PANEL BUN 18 7 - 22 05/05/2016 [facility] CHEM PANEL B/C Ratio 16 6 - 25 05/05/2016 [facility] CHEM PANEL Globulin 3.5 2.7 - 4.2 05/05/2016 [facility] CHEM PANEL A/G Ratio 1.2 0.7 - 1.6 05/05/2016 [facility] CHEM PANEL AGAP 12.0 10.0 - 20.0 05/05/2016 [facility] HEMATOLOGY MCV 88.3 80.0 - 94.0 05/05/2016 [facility] HEMATOLOGY Platelet 266 133 - 450 05/05/2016 [facility] HEMATOLOGY Hct 42.8 42.0 - 54.0 05/05/2016 [facility] HEMATOLOGY RDW 12.9 11.5 - 14.5 05/05/2016 [facility] HEMATOLOGY MCHC 35.1 32.0 - 36.0 05/05/2016 [facility] MCH 30.9 27.0 - 31.0 05/05/2016 [facility] HEMATOLOGY MPV 8.0 7.4 - 10.4 05/05/2016 [facility] HEMATOLOGY WBC 7.7 3.7 - 10.4 05/05/2016 [facility] HEMATOLOGY Hgb 15.0 14.0 - 18.0 05/05/2016 [facility] HEMATOLOGY RBC 4.85 4.70 - 6.10 05/05/2016 [facility] HEMATOLOGY Lymphocytes 27.2 20.0 - 40.0 05/05/2016 [facility] HEMATOLOGY Segs 57.8 45.0 - 75.0 05/05/2016 [facility] HEMATOLOGY Eosinophils # 0.4 0.0 - 0.5 05/05/2016 [facility] HEMATOLOGY Monocytes # 0.7 0.0 - 0.8 05/05/2016 [facility] HEMATOLOGY Basophils # 0.1 0.0 - 0.2 05/05/2016 [facility] HEMATOLOGY Basophils 1.1 0.0 - 1.0 05/05/2016 [facility] HEMATOLOGY Eosinophils 4.6 0.0 - 4.0 05/05/2016 [facility] HEMATOLOGY Monocytes 9.3 2.0 - 12.0 05/05/2016 [facility] HEMATOLOGY Segs-Bands # 4.4 1.5 - 8.1 05/05/2016 [facility] HEMATOLOGY Lymphocytes # 2.1 1.0 - 5.5 05/05/2016 [facility] Pathology Reports No Data Provided for This [...] for fracture. This exam was interpreted at [id number] for KAITY [place] 15. 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 asymptomatic; Comparison: 08/03/2010 Technique: X-ray chest frontal projection FINDINGS: There is no consolidation, pleural effusion or pneumothorax. The heart is normal in size. The mediastinum and anthony are unremarkable. The patient is status post median sternotomy. IMPRESSION: No chest radiographic evidence of acute cardiopulmonary disease. SL: TR[place] 06/28/2017 [facility] Abdomen/Pelvis w IV contrast CT Clinical Indication: [...] IMPRESSION: 1. No acute abdominal or pelvic findin gs. 2. Right lower lobe pulmonary infiltrates 3. Colonic diverticulosis 4. Cholelithiasis 5. Bilateral fat-containing inguinal her nias 06/28/2017 [facility] Spine lumbar wo contrast CT Pa tient Name: FRANCE SCHAEFER : 1940; Age: 75 years Male MR: [id number] Study: Spine lumbar wo contrast CT 05/23/2016 2:52 PM CLAIMS SUPPORT SPECIALIST CLINICAL INDICATION: PT states he has a [...] of the lumbar spine as described. : [id number] 05/23/2016 [facility] Spine lumbar wo contrast MRI P atient Name: FRANCE SCHAEFER : 1940; Age: 75 years Male MR: [id number] Study: Spine lumbar wo contrast MRI 05/23/2016 3:04 PM CLAIMS SUPPORT SPECIALIST CLINICAL INDICATION: As per pt c/o lower [...] of the lumbar spine as described. : [id number] 05/23/2016 [facility] Abdomen/Pelvis w IV contrast CT Patient Name: FRANCE SCHAEFER : 1940; Age: 75 years y/o Male MR: [id number] Study: Abdomen/Pelvis w IV contrast CT 05/05/2016 7:45 PM CLAIMS SUPPORT SPECIALIST Ordering Physician: Earnest Platt MD Clinical Indication: [...] (In retrospect these were previously present on rn recovery radiograph of small bowel series dating 07/14/2006, [...] of significance is appreciated. SL: NAN 05/05/2016 [facility] Spine lumbar wo contrast CT (ER) Patient Name: FRANCE SCHAEFER : 1940; Age: 75 years Male MR: [id number] Study: Spine lumbar wo contrast CT (ER) 05/05/2016 4:49 PM CLAIMS SUPPORT SPECIALIST Clinical Indication: Pain Post Trauma; Increased midline [...] Infrarenal aortic aneurysm. 4. Left nephrolithiasis incompletely ev aluated. SL: JKUSHOLACARMEN-ARIS 05/05/2016 [facility] Spine lumbar 2 or 3 views DX R MUKUL FOR EXAM: M54.5. COMPARISON: None. FINDINGS: AP [...] T12. 2. Degenerative changes of the lumbar sp ine and visualized lower thoracic spine as described above. 3. Degenerative changes of the left sacr oiliac joint and pubic symphysis. 4. Indeterminate sclerotic lesions in th e marrow of the right ilium and right femoral head. Further evaluation may be obtained with a whole-body bone scan. 5. Aortoiliac calcifications. 6. Possible splenic artery aneurysm. Fur ther evaluation may be obtained with an abdomen CT. SL: Paul 04/28/2016 [facility] [place] Scrotal/Testicle w Doppler US Study: Scrotal/Testicle w [...] testicle. 3. 5 mm right-sided tunica albuginea cys t. 4. 3.6 mm cyst in the left epididymal ta il. 5. Small right hydrocele. SL: [id number] 08/06/2015 [facility] [place] Bone Density [employer] [place] - Bone Density [employer] [place] MALE BONE DENSITY EVALUATION: 05/26/2015 RISK FACTORS: race. COMPARISON: 01/03/2013 Left total femur area using a Hologic unit from [facility] with reported normal fracture risk, BMD of 0.913g/cm2 and T-score of - 0.80. 01/03/2013 Left femur neck using a Holog ic unit from [facility] with reported medium fracture risk, BMD of 0.774g/cm2, T-score of -1.10 and Z- score of 0.10. 01/03/2013 AP L1-L4 region of spine usin g a Hologic unit from [facility] with reported high fracture risk, [...] This exam was dictated and interpreted by [id number] for YAHIR [place], KAITY 15. Rommel Bolton M.D., cm/kathrin:05/29/2015 09:50:26 [employer] Machine Operator Helper: Darin Arshad RT, [facility] 05/26/2015 [facility] Elbow 2 views DX Right elbow A P and lateral , Oct 27, 2014 01:03:00 PM HISTORY: Right elbow pain COMPARISON: None FINDINGS: No evidence for acute fracture. Real head is intact and located. Negative for joint effusion. There is however marked soft tissue swelling along the dorsum of the elbow. Vascular calcifications. IMPRESSION: Soft tissue swelling. No acute osseous abnormality. SL: 10/27/2014 [facility] Consultation Notes No Data Provided for This Section Discharge Summaries No Data Provided for This Section History and Physicals No Data Provided for This Section Vital Signs Vital Sign Value Date Comments Source Systolic (mm Hg) 139 01/24/2019 [facility] Diastolic (mm Hg) 89 01/24/2019 [facility] Heart Rate 74 01/24/2019 [facility] Temperature Oral (F) 98.5 F 01/24/2019 [facility] Weight 84.688 01/24/2019 [facility] Weight 83.693 09/27/2018 [facility] Temperature Oral (F) 97.8 F 09/27/2018 [facility] Heart Rate 51 09/27/2018 [facility] Systolic (mm Hg) 150 09/27/2018 [facility] Diastolic (mm Hg) 73 09/27/2018 [facility] Height 172.72 cm 05/24/2018 [facility] BMI Calculated 28.25 05/24/2018 [facility] Weight 84.29 05/24/2018 [facility] Systolic (mm Hg) 134 05/24/2018 [facility] Diastolic (mm Hg) 78 05/24/2018 [facility] Temperature Oral (F) 98.1 F 05/24/2018 [facility] Heart Rate 75 05/24/2018 [facility] Heart Rate 61 02/02/2018 [facility] Temperature [...] Rate 23 06/28/2017 [facility] Weight 81.818 06/28/2017 [facility] Height 172.72 cm 06/28/2017 [facility] BMI Calculated 27.43 06/28/2017 [facility] Temperature Oral (F) 97.9 F 06/28/2017 [facility] Heart Rate 66 06/28/2017 [facility] Systolic (mm Hg) 134 06/28/2017 [facility] Diastolic (mm Hg) 80 06/28/2017 [facility] Heart Rate 64 06/28/2017 [facility] Temperature Oral (F) 98.0 F 06/28/2017 [facility] BMI Calculated 28.67 06/28/2017 [facility] Weight 85.54 06/28/2017 [facility] Height 172.72 cm 06/28/2017 [facility] Heart Rate 70 05/06/2016 [facility] Respitory Rate 20 05/06/2016 [facility] Systolic (mm Hg) 147 05/06/2016 [facility] Diastolic (mm Hg) 82 05/06/2016 [facility] Temperature Oral (F) 98.2 F 05/06/2016 [facility] Systolic (mm Hg) 160 05/06/2016 [facility] Diastolic (mm Hg) 77 05/06/2016 [facility] Temperature Oral (F) 98.0 F 05/06/2016 [facility] Heart Rate 68 05/06/2016 [facility] Respitory Rate 20 05/06/2016 [facility] Systolic (mm Hg) 197 05/06/2016 [facility] Diastolic (mm Hg) 101 05/06/2016 [facility] Heart Rate 64 05/06/2016 [facility] Respitory Rate 20 05/06/2016 [facility] Temperature Oral (F) 98.0 F 05/06/2016 [facility] Height 172.72 cm 05/05/2016 [facility] BMI Calculated 28.04 05/05/2016 [facility] Weight 83.636 05/05/2016 [facility] Encounters Location Location Details Encounter Type Encounter Number Reason For Visit Attending Provider ADM Date DC Date Status Source Outpatient [id number] FERNIE THOMSON 10/27/2014 Active [facility] Outpatient [id number] ALEXA LAUREN- GOR 11/10/2014 Active [facility] Outpatient [id number] ALEXAAQUILES LAUREN- GOR 05/13/2015 Active [facility] [place] [facility] [id number] Alexaaquiles Lauren-Gor 05/26/2015 05/27/2015 [facility] [place] [facility] [id number] ALEXA LAUREN- GOR 08/05/2015 Active [facility] [place] [facility] [id number] Alexaaquiles Lauren-Gor 08/06/2015 08/07/2015 [facility] [place] Outpatient [id number] ALEXA LAUREN- GOR 11/11/2015 Active [facility] Outpatient [id number] BOBBY FAGAN 01/27/2016 Active [facility] Outpatient [id number] BOBBY FAGAN 02/01/2016 Active [facility] Outpatient [id number] MAGDALENE CORA-PRATT 04/27/2016 [facility] [place] [facility] [id number] Magdalene Cora-Pratt 04/28/2016 04/29/2016 [facility] [place] Outpatient [id number] ALEXA LAUREN- SERGO 05/02/2016 Active [facility] Emergency [id number] Angelinazoila Miller 05/05/2016 05/06/2016 [facility] Outpatient [id number] MELANIE ALMAGUER 05/18/2016 Active [facility] Outpatient [id number] Lief Schumacherh 05/23/2016 05/24/2016 [facility] Outpatient [id number] LEIF DANIS 05/31/2016 Active [facility] Outpatient [id number] LEIF DANIS 07/05/2016 Active [facility] Outpatient [id number] NURSE VISIT 06/28/2017 Active [facility] Outpatient [id number] LATESHA BELLO 06/28/2017 Active [facility] Ambulatory Pre-Reg [id number] 06/29/19 18 06/28/2017 [facility] Outpatient [id number] Latesha Ace 06/28/2017 06/29/2017 [facility] Emergency [id number] Refugio Obando 06/28/2017 06/28/2017 [facility] Phone Message [id number] 07/03/2017 07/05/2017 [facility] Phone Message [id number] 07/06/2017 07/08/2017 [facility] Phone Message [id number] 07/12/2017 07/14/2017 [facility] Outpatient [id number] NURSE VISIT 09/12/2017 [facility] [id number] NURSE VISIT 09/12/2017 [facility] Outpatient [id number] Latesha Ace 09/12/2017 09/13/2017 [facility] Ambulatory Pre-Reg [id number] 09/13/19 18 09/12/2017 [facility] Outpatient [id number] LATESHA ACE 10/03/2017 [facility] Outpatient [id number] Latesha Ace 10/03/2017 10/04/2017 [facility] [id number] Latesha Ace 10/11/2017 10/12/2017 [facility] [place] Out[facility] [id number] LATESHA ACE 11/02/2017 Active [facility] Outpatient [id number] Latesha Ace 11/02/2017 11/03/2017 [facility] Outpatient [id number] LATESHA ACE 11/21/2017 Active [facility] Outpatient [id number] Latesha Ace 11/21/2017 11/22/2017 [facility] Outpatient [id number] LATESHA ACE 11/24/2017 [facility] Outpatient [id number] Latesha Ace 11/24/2017 11/25/2017 [facility] Outside Medical Records [id number] 12/16/19 18 12/17/2017 [facility] Phone Message [id number] 12/26/2017 12/28/2017 [facility] Phone Message [id number] 01/15/2018 01/17/2018 [facility] Outpatient [id number] LATESHA ACE 02/02/2018 [facility] Outpatient [id number] Latesha Ace 02/02/2018 02/03/2018 [facility] Phone Message [id number] 02/26/2018 02/28/2018 [facility] Outpatient [id number] MAGDALENE SHEPHERD-PRATT 05/21/2018 Active [facility] Ambulatory Pre-Reg [id number] Magdalene Velaon-Pratt 05/21/2018 05/21/2018 [facility] Outpatient [id number] LATESHA ACE 05/24/2018 Active [facility] Outpatient [id number] Latesha Ace 05/24/2018 05/25/2018 [facility] Between Visit [id number] 05/26/2018 05/27/2018 [facility] Outpatient [id number] Latesha Ace 09/27/2018 Active [facility] Outpatient [id number] Latesha Ace 09/27/2018 09/28/2018 [facility] Between Visit [id number] 09/28/2018 09/29/2018 [facility] Outpatient [id number] Latesha Ace 01/24/2019 [facility] Outpatient [id number] Latesha Ace 01/24/2019 01/25/2019 [facility] Between Visit [id number] 01/28/2019 01/29/2019 [facility] Phone Message [id number] 06/04/2019 06/06/2019 [facility] Outpatient [id number] Latesha Ace 07/25/2019 [facility] [id number] Latesha Ace 07/25/2019 [facility] Out[facility] [id number] Latesha Ace 07/25/2019 Active [facility] Ambulatory Pre-Reg [id number] Latesha Ace 07/25/2019 07/25/2019 [facility] Outpatient [id number] Latesha Ace 07/25/2019 07/26/2019 [facility] Ambulatory Pre-Reg [id number] Latesha Ace 07/25/2019 07/25/2019 Medical [facility] Between Visit [id number] 07/29/2019 07/30/2019 Medical [facility] Outpatient [id number] Latesha Ace 01/29/2020 Active [facility] Procedures Procedure Code Date Perfomer Comments Source Endoscopic prostatectomy 49633 [facility], [facility] [place],[facility] Functional endoscopic sinus surgery - an terior ethmoidectomy and frontal recess dissection [id number] [facility], [facility] [place],[facility] Hemorrhoidectomy [id number] [facility], [facility] [place],[facility] Tonsillectomy [id number] [facility], [facility] [place],[facility] Triple coronary bypass [id number] [facility] Assessment and Plan No Data Provided for This Section Plan of Care No Data Provided for This Section Social History Social History Date Source Social [...] 11.0; Stopped at age: 44; entered on: 07/25/19 07/25/2019 [facility] Social History TypeResponse Smoking Status Former [...] No; Reg Smoking Cessation Counseling No 08/05/2015 YAHIR Zhong Family History No Data Provided for This Section Advance Directives No Data Provided for This Section Functional Status No Data Provided for This Section
--- OUTSIDE RECORDS SUMMARY | 2019-08-02 07:52 | XMS REPORT | Summary of Care ---
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
--- OUTSIDE RECORDS SUMMARY | 2019-08-02 07:52 | XMS REPORT | Summary of Care ---
Author Author [facility] Organization [facility] Address Unknown Phone Unavailable Care Team Providers Care Clothing Designer Name Role Phone Nakul Simons PCP Encounter [facility] Encntr_aliariel(FIN) [phone] Date(s): 09/27/18 - 09/27/[address] [place], [place] [address]- [phone] Discharge Disposition: Home or Self Care Attending Physician: Nakul Simons MD Vital Signs Most recent to 1 oldest [Reference Range]: Temperature Oral 97.8 DegF [96.4-99.1 DegF] (09/27/18 9:02 AM) Blood Pressure 150/73 mmHg [90-140/60-90 mmHg] *HI* (09/27/18 9:02 AM) Peripheral Pulse 51 bpm Rate [60-100 bpm] *LOW* (09/27/18 9:02 AM) Weight 83.693 kg (09/27/18 9:02 AM) Problem List Condition Effective Dates Status [...] 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
--- OUTSIDE RECORDS SUMMARY | 2019-08-02 07:53 | XMS REPORT ---
Author Author [facility] t Organization [facility] t Address 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 Medicare Complete [id number] 2011 00:00:00 [facility] Medicare Complete [id number] 2011 00:00:00 [facility] Problems Condition Name Condition Details Condition Category Status Onset Date Resolution Date Last Treatment Date Treating Clinician Comments Source Hematoma of scrotum Scrotal hematoma Problem Active [facility] Allergies, Adverse Reactions, Alerts This patient has no known allergies or adverse reactions. Medications Ordered Medication Name Filled Medication Name Start Date Stop Da te Current Medication? Ordering Clinician Indication Dosage Frequency Signature (SIG) Comments Components Source Acetaminophen/Codeine Phosphate (Tylenol # 3*) 1 Ea Ta b Acetaminophen/Codeine Phosphate (Tylenol # 3*) 1 Ea Tab Yes 1 Every 6 Hours as needed for Pain [facility] Amlodipine Besylate 10 Mg Tablet Amlodipine Besylate 10 Mg Tablet Yes 10 Bedtime [facility] Calcium Calcium Yes 600 Daily [facility] Docusate Sodium (Stool Softener) 50 Mg Capsule Docusat e Sodium (Stool Softener) 50 Mg Capsule Yes Daily [facility] Fish Oil/Dha/Epa (Fish Oil 1,200 Mg Fish Oil) 1 Each C apsule Fish Oil/Dha/Epa (Fish Oil 1,200 Mg Fish Oil) 1 Each Capsule Yes Bedtime [facility] Hydrochlorothiazide 25 Mg Tablet Hydrochlorothiazide 25 Mg Tablet Yes 12.5 Daily [facility] Irbesartan 150 Mg Tablet Irbesartan 150 Mg Tablet Yes 300 Daily [facility] Levothyroxine Sodium 50 Mcg Tablet Levothyroxine Sodium 50 Mcg Tablet Yes 100 Daily [facility] Lovenox Lovenox Yes Twice A Day [facility] Magnesium Magnesium Yes 250 [facility] Metformin Hcl (Metformin Hcl Er) 500 Mg Tab.er.24 Metf ormin Hcl (Metformin Hcl Er) 500 Mg Tab.er.24 Yes 1000 Twice A Day [facility] Mu-Vits-Min Th/Lycopene/Lutein (Centrum Silver Tablet) 1 Each Tablet Mu-Vits-Min Th/Lycopene/Lutein (Centrum Silver Tablet) 1 Each Tablet Yes Daily [facility] Pravastatin Sodium 10 Mg Tablet Pravastatin Sodium 10 Mg Tablet Yes Daily [facility] Sulfamethoxazole/Trimethoprim (Sulfamethoxazole-Tmp Ds Tablet) 1 Each Tablet Sulfamethoxazole/Trimethoprim (Sulfamethoxazole-Tmp Ds Tablet) 1 Each Tablet Yes Daily [facility] Warfarin Sodium 4 Mg Tablet Warfarin Sodium 4 Mg Tablet Yes 5 Daily [facility] Valsartan/Hydrochlorothiazide (Diovan Hct 320-25 Mg Ta blet) 1 Each Tablet, Valsartan/Hydrochlorothiazide (Diovan Hct 320-25 Mg Tablet) 1 Each Tablet, 2018-05-07 00:00:00 No Daily [facility] Procedures Procedure Date / Time Performed Performing Clinician [facility] DRAINAGE OF SCROTUM, OPEN APPROACH 2018-05-21 00:00:00 THOMAS DEVRIES [facility] CYSTOSCOPY & URETER CATHETER 2018-05-09 00:00:00 [facility] CYSTOSCOPY CHEMODENERVATION 2018-05-09 00:00:00 [facility] REMOVAL OF TESTIS 2018-05-09 00:00:00 [facility] Testicular ultrasound 2018-01-29 00:00:00 [facility] Dup-scan artl bob abdl/pel/scrot&/RPR orgn lmt 2018-01-29 00:00: 00 [facility] CYSTOSCOPY & URETER CATHETER 2017-11-29 00:00:00 [facility] REMOVE BLADDER STONE 2017-11-29 00:00:00 [facility] X-ray of chest, two views 2017-11-27 00:00:00 [facility] Computed tomography of abdomen and pelvis without then with contrast 2017-10-26 00:00:00 [facility] Encounters Start Date/Time End Date/Time Encounter Type Admission Type [facility] Care Department Encounter ID Source 2019-07-29 08:20:55 2019-07-30 08:20:55 Outpatient MHMG MHMG [id number] [facility] 2019-07-25 08:30:00 2019-07-25 23:59:59 Outpatient Ace, Nakul Lo uis MHMG MHMG [id number] [facility] 2019-07-25 08:30:00 2019-07-25 08:30:00 Outpatient Ace, Nakul Lo uis MHMG MH[facility] [id number] [facility] 2019-07-25 08:30:00 2019-07-25 08:30:00 Outpatient Ace, Nakul Lo uis MHMG MHMG [id number] [facility] 2019-06-04 16:38:50 2019-06-05 23:59:59 Outpatient MHMG MHMG [id number] [facility] 2019-01-28 08:32:33 2019-01-29 08:32:33 Outpatient MHMG MHMG [id number] [facility] 2019-01-24 09:45:00 2019-01-24 23:59:59 Outpatient Ace, Nakul Lo uis MHMG MHMG [id number] [facility] 2018-09-28 07:09:30 2018-09-29 07:09:30 Outpatient MHMG MHMG [id number] [facility] 2018-09-27 09:45:00 2018-09-27 23:59:59 Outpatient Ace, Nakul Lo uis MHMG MHMG [id number] [facility] 2018-05-30 12:01:00 2018-05-30 14:45:00 Departed Emergency Room [facility] [id number] [facility] 2018-05-25 20:23:07 2018-05-26 20:23:07 Outpatient MHMG MHMG [id number] [facility] 2018-05-24 10:30:00 2018-05-24 23:59:59 Outpatient Ace, Nakul Lo uis MHMG MHMG [id number] [facility] 2018-05-20 10:40:00 2018-05-23 14:09:00 Discharged Inpatient [facility] [id number] [facility] 2018-05-21 10:15:00 2018-05-21 10:15:00 Outpatient Zulma Martínez MHMG MG [id number] [facility] 2018-05-09 06:16:00 2018-05-09 06:16:00 Registered Surgical Day Care [facility] [id number] [facility] 2018-02-26 11:36:00 2018-02-27 23:59:59 Outpatient MHMG MHMG [id number] [facility] 2018-02-02 10:00:00 2018-02-02 23:59:59 Outpatient Ace, Nakul Lo uis MHMG MG [id number] [facility] 2018-01-29 10:59:00 2018-01-29 10:59:00 Registered Clinic 3 ELY MPEL, [facility] [id number] [facility] 2018-01-15 12:46:00 2018-01-16 23:59:59 Outpatient MHMG MHMG [id number] [facility] 2017-12-26 13:16:00 2017-12-27 23:59:59 Outpatient MHMG MHMG [id number] [facility] 2017-12-15 08:02:00 2017-12-16 23:59:59 Outpatient MHMG MHMG [id number] [facility] 2017-11-29 07:54:00 2017-11-29 07:54:00 Registered Surgical Day Car e 3 CONNER, [facility] [id number] [facility] 2017-11-24 10:00:00 2017-11-24 23:59:59 Outpatient Ace, Nakul Lo uis MHMG MHMG [id number] [facility] 2017-11-21 16:15:00 2017-11-21 23:59:59 Outpatient Ace, Nakul Lo uis MHMG MHMG [id number] [facility] 2017-11-02 11:15:00 2017-11-02 23:59:59 Outpatient Ace, Nakul Lo uis MHMG MHMG [id number] [facility] 2017-10-26 08:57:00 2017-10-26 08:57:00 Registered Clinic 3 MARISELA GIL [facility] [id number] JUAN MANU[facility] 2017-10-11 09:55:00 2017-10-11 23:59:00 Outpatient More Bello Ab MHOIP MHOIP [id number] [facility] [place] 2017-10-03 09:45:00 2017-10-03 23:59:59 Outpatient Nakul Bello uis MHMG MHMG [id number] [facility] 2017-09-12 09:00:00 2017-09-12 23:59:59 Outpatient Nakul Bello uis MHMG MHMG [id number] [facility] 2017-09-12 09:00:00 2017-09-12 09:00:00 Outpatient MHMG MHMG [id number] [facility] 2017-07-18 15:00:00 2017-07-18 15:00:00 Appointment; FRANTZ SANTOS [facility] [id number] [facility] 2017-07-12 08:46:00 2017-07-13 23:59:59 Outpatient MHMG MHMG [id number] [facility] 2017-07-06 17:01:00 2017-07-07 23:59:59 Outpatient MHMG MHMG [id number] [facility] 2017-07-03 11:04:00 2017-07-04 23:59:59 Outpatient MHMG MHMG [id number] [facility] 2017-06-28 11:45:00 2017-06-28 23:59:59 Outpatient Nakul Bello uis MHMG MHMG [id number] [facility] 2017-06-28 12:08:00 2017-06-28 15:49:00 Outpatient Kirti Obando MHSEH MHSEH [id number] [facility] 2017-06-28 10:30:00 2017-06-28 10:30:00 Outpatient MHMG MHMG [id number] [facility] 2016-05-23 14:37:00 2016-05-23 23:59:00 Outpatient Leif Gil MHSEH MHSEH [id number] [facility] 2016-05-05 16:33:00 2016-05-06 01:05:00 Outpatient Angelina Christianson [facility] [id number] [facility] pital 2016-04-28 11:08:00 2016-04-28 23:59:00 Outpatient Zulma Curry MHOIP MHOIP [id number] [facility] Outpatient Imag ing [place] 2015-08-06 08:58:00 2015-08-06 23:59:00 Outpatient Alexa Mondragon [id number] [facility] Outpatient Imaging [place] 2015-05-26 13:57:00 2015-05-26 23:59:00 Outpatient Alexa Mondragon AVELINOP MHOIP [id number] [facility] Outpatient Imag ing [place] Results Test Description Test Time Test Comments Results Result Comments Source CHEST 2 VIEWS 2019-07-30 10:36:00 [place] [address] Patient Name: FRANCE SCHAEFER MR #: [id number] : 1940 Age/Sex: 78/M Req #: [id number] Adm Physician: Ordered by: MARISELA PRIETO MD Report #: [id number] Location: OR Room/Bed: Procedure: [id number] DX/CHEST 2 VIEWS Exam Date: 07/30/19 Exam Time: 1017 REPORT STATUS: Signed EXAM: CHEST 2 VIEWS DATE: 07/30/2019 10:17 AM INDICATION: Preoperative evaluation COMPARISON: 03/14/2019 FINDINGS: Post surgical changes from prior median sternotomy again noted. The trachea is midline. Rounded opacities noted projecting over the right apex on the PA view are external to the patient likely reflecting overlying clothing. The lungs are otherwise symmetrically expanded without evidence for focal consolidation, pneumothorax, or significant pleural effusion. The cardiac mediastinal silhouette is stable in appearance. Degenerative changes noted of the visualized spine. No acute osseous abnormality is identified. IMPRESSION: No acute cardiopulmonary process identified. Signed by: Dr. Marcin Strauss MD on 07/30/2019 10:38 AM Dictated By: MARCIN STRAUSS MD 1038 Transcribed By: DREW on 07/30/19 1038 COPY TO: MARISELA PRIETO MD ABDOMEN-1VIEW (KUB) 2019-04-17 10:58:00 [place] [address] Patient Name: FRANCE SCHAEFER MR #: [id number] : 1940 Age/Sex: 78/M Req #: [id number] Adm Physician: Ordered by: MARISELA PRIETO MD Report #: [id number] Location: [facility] Room/Bed: Procedure: [id number] DX/ABDOMEN-1VIEW (KUB) Exam Date: 04/17/19 Exam Time: 1027 REPORT STATUS: Signed Exam: KUB - 2 views Indication: Renal calculus Comparison: KUB of 03/14/2019 Findings: No radiographically apparent renal calculi. The left renal calculus seen on prior CT of the abdomen and pelvis may be beyond the resolution of this radiograph. Scattered calcifications overlying the left kidney likely represent vascular calcifications. Calcified gallstones in the right upper quadrant. Nonobstructive bowel gas pattern. No free air. No acute osseous injury. Degenerative changes of the visualized spine and both hip joints. Phleboliths and surgical clips in the pelvis. Impression: No radiographically apparent renal calculi. Signed by: Cristino Carr MD on 04/17/2019 11:03 AM Dictated By: CRISTINO CARR MD 02 Transcribed By: DREW on 04/17/191102 COPY TO: MARISELA PRIETO MD ABDOMEN-1VIEW (KUB) 2019-03-14 10:44:00 [place] [address] Patient Name: FRANCE SCHAEFER MR #: [id number] : 1940 Age/Sex: 78/M Req #: [id number] Adm Physician: Ordered by: MARISELA PRIETO MD Report #: [id number] Location: OR Room/Bed: Procedure: [id number] DX/ABDOMEN-1VIEW (KUB) Exam Date: 03/14/19 Exam Time: 1010 REPORT STATUS: Signed EXAM: ABDOMEN-1VIEW (KUB) DATE: 03/14/2019 9:51 AM INDICATION: Preoperative evaluation COMPARISON: CT renal stone study from 01/03/2019 FINDINGS: Calcified gallstones noted within the right upper quadrant. There are calcifications project over the bilateral renal shadows which likely reflect vascular calcifications as noted and better evaluated on the prior CT examination. Multiple surgical clips and phleboliths noted within the pelvis. Bowel gas pattern appears nonspecific but nonobstructive. Degenerative changes noted of the visualized spine. No acute osseous abnormality identified. IMPRESSION: Calcifications noted projecting over the bilateral renal shadows which likely reflect prominent vascular calcifications as noted and better evaluated on the prior CT examination. Radiographic assessment for renal stones is limited given prominent vascular calcifications. No other acute radiographic abnormality identified within the abdomen. Signed by: Dr. Marcin Strauss MD on 03/14/2019 10:48 AM Dictated By: MARCIN STRAUSS MD Transcribed By: DREW on 03/14/198 COPY TO: MARISELA PRIETO MD CHEST 2 VIEWS 2019-03-14 10:42:00 [facility] [address] [address] Patient Name: FRANCE SCHAEFER MR #: [id number] : 1940 Age/Sex: 78/M Req #: [id number] Adm Physician: Ordered by: MARISELA PRIETO MD Report #: [id number] Location: OR Room/Bed: Procedure: [id number] DX/CHEST 2 VIEWS Exam Date: 03/14/19 Exam Time: 1010 REPORT STATUS: Signed EXAM: CHEST 2 VIEWS DATE: 03/14/2019 9:51 AM INDICATION: Preoperative evaluation COMPARISON: 11/27/2017 FINDINGS: There are postsurgical changes from prior median sternotomy. The trachea is midline. The lungs are symmetrically expanded w ithout evidence for large focal consolidation, pneumothorax, or significant pleural effusion. The cardiomediastinal silhouette is stable in appearance. Degenerative changes noted of the visualized spine. No acute osseous abnormality is identified. The surrounding soft tissues are unremarkable. IMPRESSION: No acute cardiopulmonary process identified. Signed by: Dr. Marcin Strauss MD on 03/14/2019 10:43 AM Dictated By: MARCIN STRAUSS MD 1043 Transcribed By: DREW on 03/14/19 1043 COPY TO: MARISELA PRIETO MD CT ABDOMEN/PELVIS WO 2019-01-03 10:30:00 [facility] [address] [address] Patient Name: FRANCE SCHAEFER MR #: [id number] : 1940 Age/Sex: 78/M Req #: [id number] Adm Physician: Ordered by: MARISELA PRIETO MD Report #: [id number] Location: CT Room/Bed: Procedure: [id number] CT/CT ABDOMEN/PELVIS WO Exam Date: 01/03/19 Exam Time: 1010 REPORT STATUS: Signed EXAM: CT Abdomen and Pelvis WITHOUT intravenous contrast INDICATION: Renal calculi COMPARISON: KUB of 12/13/2018, CT abdomen and pelvis of 10/26/2017 TECHNIQUE: Abdomen and pelvis were scanned utilizing a multidetector helical scanner from the lung base to the pubic symphysis without administration of IV contrast. Coronal and sagittal reformations were obtained. IV CONTRAST: None ORAL CONTRAST: Water COMPLICATIONS: None RADIATION DOSE: Total DLP: 531.7 mGy*cm Dose modulation, iterative reconstruction, and/or weight based adjustment of the mA/kV was utilized to reduce the radiation dose to as low as reasonably achievable. FINDINGS: LOWER THORAX: 5 mm left lower lobe pulmonary nodule (series 3 image 11). Multichamber cardiomegaly. Diffuse atherosclerotic coronary artery calcifications. HEPATOBILIARY: No focal liver lesions. Calcified gallstones in the decompressed gallbladder. No CT evidence of cholecystitis. SPLEEN: No splenomegaly. PANCREAS: No focal masses or ductal dilatation. ADRENALS: No adrenal nodules. KIDNEYS/URETERS: 4 mm nonobstructive left midpole renal calculus. No hydronephrosis. Other calcifications associated with the left kidney appear to be vascular. No right renal calculi or hydronephrosis. PELVIC ORGANS/BLADDER: Surgical clips in the pelvis. PERITONEUM / RETROPERITONEUM: No free air or fluid. LYMPH NODES: No lymphadenopathy. VESSELS: Diffuse heavy atherosclerotic calcifications of the nonaneurysmal abdominal aorta and all major branches. GI TRACT: Diverticulosis without CT evidence of diverticulitis. No abnormal bowel wall thickening. No bowel obstruction. Normal appendix. BONES AND SOFT TISSUES: No acute osseous injury. Sclerotic lesions at the right femoral head and right iliac bone appear essentially unchanged dating back to 10/26/2017. Unchanged T12 compression fracture. IMPRESSION: 4 mm nonobstructive left midpole renal calculus. No hydronephrosis. Unchanged 5 mm left lower lobe pulmonary nodule. Given history of malignancy, recommend follow-up as per clinical protocol. Diffuse heavy atherosclerotic calcifications including of the coronary arteries. Signed by: Cristino Carr MD on 01/03/2019 10:40 AM Dictated By: CRISTINO CARR MD 1040 Transcribed By: DREW on 01/03/19 1040 COPY TO: MARISELA PRIETO MD ABDOMEN-1VIEW (BELLA) 2018-12-13 13:21:00 [place] [address] Patient Name: FRANCE SCHAEFER MR #: [id number] : 1940 Age/Sex: 78/M Req #: [id number] Adm Physician: Ordered by: MARISELA PRIETO MD Report #: [id number] Location: [facility] Room/Bed: Procedure: [id number] DX/ABDOMEN-1VIEW (KUB) Exam Date: 12/13/18 Exam Time: 1118 REPORT STATUS: Signed Exam: KUB - 2 views Indication: Renal calculi Comparison: Abdomen and pelvis CT of 10/26/2017 Findings: 5 mm calcification overlying the medial lower pole of left kidney may represent a renal calculus versus vascular calcification. No other radi ographically apparent renal calculi. Calcified gallstones in the right upper quadrant. Degenerative changes of the visualized spine. Surgical clips in the pelvis. Sclerotic osseous lesions of the right iliac and right femoral head. Impression: 5 mm calcification overlying the medial lower pole of left kidney may represent renal calculus versus vascular calcification. Cholelithiasis. Sclerotic osseous lesions of the right iliac bone and femoral head. Given prior prostatectomy, bone scan is recommended if there is suspicion for osseous metastatic disease. Signed by: Cristino Carr MD on 12/13/2018 1:28 PM Dictated By: CRISTINO CARR MD 1328 Transcribed By: DREW on 12/13/18 1328 COPY TO: MARISELA PRIETO MD Urine WBC 2018-05-30 14:08:00 Test Item Urine WBC (test code = 5821-4) NONE 0-5 [facility] [id number] 14:08:00* Test Item Value Reference Range Interpretation Comments Urine RBC (test code = 98267-5) NONE 0-5 [facility] Msattfgl9289-91-74 14:08:00* Test Item Value Reference Range Interpretation Comments Urine Bacteria (test code = 81183-7) NONE NONE [facility] Epithelial Tbahi0484-60-06 14:08:00 * Test Item Value Reference Range Interpretation Comments Urine Epithelial Cells (test code = 46731-4) NONE NONE [facility] Ttghc2128-16-27 13:49:00* Test Item Value Reference Range Interpretation Comments Urine Color (test code = 5778-6) YELLOW YELLOW [facility] Qxsfdca0889-64-11 13:49:00* Test Item Value Reference Range Interpretation Comments Urine Clarity (test code = 57834-7) CLEAR CLEAR [facility] Specific Bpbfuan2660-06-99 13:49:00 * Test Item Value Reference Range Interpretation Comments Urine Specific Coffeen (test code = 5811-5) 1.010 1.010-1.02 5 [facility] [id number] 13:49:00* Test Item Value Reference Range Interpretation Comments Urine pH (test code = 43514-9) 7 5-7 [facility] Leukocyte Qxtemwwi0767-90-79 13:49:00* Test Item Value Reference Range Interpretation Comments Urine Leukocyte Esterase (test code = 5799-2) NEGATIVE NEGATIVE [facility] Unpiaif8568-55-87 13:49:00* Test Item Value Reference Range Interpretation Comments Urine Nitrite (test code = 94787-1) NEGATIVE NEGATIVE [facility] Jgziyfc7655-61-32 13:49:00* Test Item Value Reference Range Interpretation Comments Urine Protein (test code = 5804-0) NEGATIVE NEGATIVE [facility] Glucose (UA)2018-05-30 13:49:00* Test Item Value Reference Range Interpretation Comments Urine Glucose (UA) (test code = 2349-9) 2+ NEGATIVE [facility] Aarazlq0444-87-73 13:49:00* Test Item Value Reference Range Interpretation Comments Urine Ketones (test code = 14623-3) NEGATIVE NEGATIVE [facility] Zzgggsnuuawo5041-42-57 13:49:00* Test Item Value Reference Range Interpretation Comments Urine Urobilinogen (test code = 18226-1) 0.2 0.2-1 [facility] Iktriuiym7119-11-77 13:49:00* Test Item Value Reference Range Interpretation Comments Urine Bilirubin (test code = 1978-6) NEGATIVE NEGATIVE [facility] Tofva2333-43-90 13:49:00* Test Item Value Reference Range Interpretation Comments Urine Blood (test code = 50728-4) [facility]GATIVE [facility]GAT[facility] L[facility]-86-60 13:19:00* Test Item Value Reference Range Interpretation Comments Sodium Level (test code = 2951-2) 133 136-145 [facility] Fagju3488-27-42 13:19:00* Test Item Value Reference Range Interpretation Comments Potassium Level (test code = 2823-3) 3.7 3.5-5.1 [facility] Kkwqw4538-18-27 13:19:00* Test Item Value Reference Range Interpretation Comments Chloride Level (test code = 2075-0) 98 98-107 [facility] Dallas[facility] Dioxide Ionom3943-27-93 13:19:00* Test Item Value Reference Range Interpretation Comments Carbon Dioxide Level (test code = 2028-9) 28 22-29 [facility] DallasAnion Roc5631-80-83 13:19:00* Test Item Value Reference Range Interpretation Comments Anion Gap (test code = 61102-2) 10.7 8-16 [facility] Urea Mtryafkv4683-34-14 13:19:00* Test Item Value Reference Range Interpretation Comments Blood Urea Nitrogen (test code = 3094-0) 10 7-26 [facility] Dallas[facility]2019-03-13 13:19:00* Test Item Value Reference Range Interpretation Comments Creatinine (test code = 2160-0) 0.81 0.72-1.25 [facility]/Creatinine Fezey8954-63-98 13:19:00* Test Item Value Reference Range Interpretation Comments BUN/Creatinine Ratio (test code = 3097-3) 12 6-25 [facility] Glomerular Filtration Rate 2018-05-30 13:19:00* Test Item Value Reference Range Interpretation Comments Estimat Glomerular Filtration Rate (test code = 563201363) > 60 >60 Ranges were taken from the National Kidney Disease Education Program and the [facility] literature.Reference ranges:60 or greater: Ovigjh96-66 ( for 3 consecutive months): Chronic kidney disease 15 or less: Kidney failureChildren's Medical Center DallasGlucose Peuto7644-79-51 13:19:00* Test Item Value Reference Range Interpretation Comments Glucose Level (test code = MQS0920) 233 74-118 [facility] DallasCalcium Knlyn5414-07-40 13:19:00* Test Item Value Reference Range Interpretation Comments Calcium Level (test code = 87807-6) 9.1 8.4-10.2 [facility] Dallas[facility] Blood Oxsta1124-42-90 13:10:00* Test Item Value Reference Range Interpretation Comments White Blood Count (test code = 6690-2) 10.43 4.8-10.8 [facility] Dallas[facility] Blood Gzzci1776-82-32 13:10:00* Test Item Value Reference Range Interpretation Comments Red Blood Count (test code = 789-8) 4.16 4.3-5.7 [facility] Dallas[facility]emoglobin2019-03-13 13:10:00* Test Item Value Reference Range Interpretation Comments Hemoglobin (test code = 43750-6) 13.1 14.0-18.0 [facility] DallasHematocrit2019-03-13 13:10:00* Test Item Value Reference Range Interpretation Comments Hematocrit (test code = 4544-3) 37.9 38.2-49.6 [facility] DallasMean Corpuscular [id number] 13:10:00* Test Item Value Reference Range Interpretation Comments Mean Corpuscular Volume (test code = 787-2) 91.1 81-99 [facility] DallasMean Corpuscular Mmfnxnrczz2334-08-11 13:10:00* Test Item Value Reference Range Interpretation Comments Mean Corpuscular Hemoglobin (test code = 785-6) 31.5 28-32 [facility] DallasMean Corpuscular Hemoglobin Concent 2018-05-30 13:10:00* Test Item Value Reference Range Interpretation Comments Mean Corpuscular Hemoglobin Concent (test code = 786-4) 34.6 31-35 [facility] DallasRed Cell Distribution Udkej1743-52-16 13:10:00* Test Item Value Reference Range Interpretation Comments Red Cell Distribution Width (test code = 33318-1) 11.9 11.7 -14.4 [facility] DallasPlatelet Qdopy9976-07-51 13:10:00* Test Item Value Reference Range Interpretation Comments Platelet Count (test code = 777-3) 279 140-360 [facility] DallasNeutrophils (%) (Auto)2018-05-30 13:10:00 * Test Item Value Reference Range Interpretation Comments Neutrophils (%) (Auto) (test code = 67532-2) 76.9 38.7-80.0 [facility] DallasLymphocytes (%) (Auto)2018-05-30 13:10:00 * Test Item Value Reference Range Interpretation Comments Lymphocytes (%) (Auto) (test code = 736-9) 13.2 18.0-39.1 [facility] DallasMonocytes (%) (Auto)2018-05-30 13:10:00* Test Item Value Reference Range Interpretation Comments Monocytes (%) (Auto) (test code = 5905-5) 7.4 4.4-11.3 [facility] DallasEosinophils (%) (Auto)2018-05-30 13:10:00 * Test Item Value Reference Range Interpretation Comments Eosinophils (%) (Auto) (test code = 713-8) 1.3 0.0-6.0 [facility] DallasBasophils (%) (Auto)2018-05-30 13:10:00* Test Item Value Reference Range Interpretation Comments Basophils (%) (Auto) (test code = 706-2) 0.9 0.0-1.0 [facility] DallasIM GRANULOCYTES %2018-05-30 13:10:00* Test Item Value Reference Range Interpretation Comments IM GRANULOCYTES % (test code = IM GRANULOCYTES %) 0.3 0.0- 1.0 [facility] DallasNeutrophils # (Auto)2018-05-30 13:10:00* Test Item Value Reference Range Interpretation Comments Neutrophils # (Auto) (test code = 751-8) 8.0 2.1-6.9 [facility] DallasLymphocytes # (Auto)2018-05-30 13:10:00* Test Item Value Reference Range Interpretation Comments Lymphocytes # (Auto) (test code = 63935-7) 1.4 1.0-3.2 [facility] DallasMonocytes # (Auto)2018-05-30 13:10:00* Test Item Value Reference Range Interpretation Comments Monocytes # (Auto) (test code = 742-7) 0.8 0.2-0.8 [facility] DallasEosinophils # (Auto)2018-05-30 13:10:00* Test Item Value Reference Range Interpretation Comments Eosinophils # (Auto) (test code = 711-2) 0.1 0.0-0.4 [facility] DallasBasophils # (Auto)2018-05-30 13:10:00* Test Item Value Reference Range Interpretation Comments Basophils # (Auto) (test code = 704-7) 0.1 0.0-0.1 [facility] DallasAbsolute Immature Granulocyte (auto 2018-05-30 13:10:00* Test Item Value Reference Range Interpretation Comments Absolute Immature Granulocyte (auto (radha t code = Absolute Immature Granulocyte (auto) 0.03 0-0.1 [facility] DallasBedside Xlykwfo0809-87-06 11:17:00* Test Item Value Reference Range Interpretation Comments Bedside Glucose (test code = 43104-5) 238 70-120 Meter ID: [id number]'s Medical Center DallasTotal Bilirubin 2018-05-20 11:14:00* Test Item Value Reference Range Interpretation Comments Total Bilirubin (test code = 1975-2) 0.8 0.2-1.2 [facility] DallasAspartate Amino Transf (AST/SGOT) 2018-05-20 11:14:00* Test Item Value Reference Range Interpretation Comments Aspartate Amino Transf (AST/SGOT) (test code = Aspartate Amino Transf (AST/SGOT)) 22 5-34 [facility] DallasAlanine Aminotransferase (ALT/SGPT) 2018-05-20 11:14:00* Test Item Value Reference Range Interpretation Comments Alanine Aminotransferase (ALT/SGPT) (test code = 1742-6) 34 0-55 [facility] DallasTotal Bmahczt1548-60-69 11:14:00* Test Item Value Reference Range Interpretation Comments Total Protein (test code = 2885-2) 7.7 6.5-8.1 [facility] DallasAlbumin2019-03-03 11:14:00* Test Item Value Reference Range Interpretation Comments Albumin (test code = 1751-7) 4.2 3.5-5.0 [facility] DallasGlobulin2019-03-03 11:14:00* Test Item Value Reference Range Interpretation Comments Globulin (test code = 91174-8) 3.5 2.3-3.5 [facility] DallasAlbumin/Globulin Eevrp6864-79-99 11:14:00 * Test Item Value Reference Range Interpretation Comments Albumin/Globulin Ratio (test code = 1759-0) 1.2 0.8-2.0 [facility] DallasAlkaline Mwiquhpssum4181-01-80 11:14:00* Test Item Value Reference Range Interpretation Comments Alkaline Phosphatase (test code = 6768-6) 94 40-150 [facility] DallasLactic Acid Npffg9428-99-62 11:06:00* Test Item Value Reference Range Interpretation Comments Lactic Acid Level (test code = Lactic Acid Level) 13.9 4.5- 19.8 [facility] DallasProthrombin Vemx1843-84-91 11:01:00* Test Item Value Reference Range Interpretation Comments Prothrombin Time (test code = 5902-2) 18.8 11.9-14.5 [facility] DallasProthromb Time International Ratio 2018-05-20 11:01:00* Test Item Value Reference Range Interpretation Comments Prothromb Time International Ratio (test code = 6301-6) 1.51 Oral Anticoagulant Therapy INR Values:1. Low Intensity Therapy 1.5 - 2.02 . Moderate Intensity Therapy 2.0 - 3.03. High Intensity Therapy(1) 2.5 - 3. 54. High Intensity Therapy(2) 3.0 - 4.05. Panic Value INR > 5.0 [facility] DallasActivated Partial Thromboplast Time 2018-05-09 07:17:00* Test Item Value Reference Range Interpretation Comments Activated Partial Thromboplast Time (test code = 42541-1) 41.0 23.8-35.5 [facility] DallasUS [id number] 13:55:00 [facility] [address] [address] Patient Name: FRANCE SCHAEFER MR #: [id number] : 1940 Age/Sex: 77/M Req #: [id number] Adm Physician: Ordered by: MARISELA PRIETO MD Report #: [id number] Location: US Room/Bed: Procedure: [id number] US/US TE STICULAR Exam Date: 01/29/18 Exam Time: 1127 REPORT STATUS: Signed Exam: Testicular ultrasound with doppler Clinical History: Right groin pain. Comparis on: CT Abdomen/Pelvis 10/26/17. Findings: Sonographic evaluation of the testicles. Both testes are normal in echogenicity and size without intratesti cular mass. The right testicle measures 4.1 x 2.2 x 3.1 cm and the left testic le measures 3.7 x 2.1 x 2.9 cm. Normal doppler flow bilaterally. Small ri ght epididymal cysts. Both epididymides are otherwise normal in appearance. No rmal doppler flow bilaterally. No hydroceles or varicoceles. In the l eft inguinal region, there is a heterogeneously hyperechoic somewhat tubular s tructure without vascular flow. Impression: Unremarkable appearance of b ilateral testicles. No sonographic evidence of torsion. Heterogeneous so mewhat tubular structure in the left inguinal region most likely represents an inguinal hernia, a fat containing inguinal hernia was present on CT from 12/05. Signed by: Dr. Hermes Keith MD on 01/29/2018 2:13 PM Dictated B y: HERMES KEITH MD [address] scribed By: DREW on 01/29/18 1413 COPY TO: MARISELA PRIETO MD US TESTICULAR DOPPLER [id number] 13:55:[address] [address] Patient Name: FRANCE SCHAEFER MR #: [id number] : 1940 Age/Sex: 77/M Req #: [id number] Adm Physician: Ordered by: MARISELA PRIETO MD Report #: [id number] Location: US Room/Bed: Procedure: [id number] US/US TE STICULAR DOPPLER LTD Exam Date: 01/29/18 Exam Time: 1128 REPORT STATUS: Signed Exam: Testicular ultrasound with doppler Clinical History: Right groin pain. Comparison: CT Abdomen/Pelvis 10/26/17. Findings: Sonographic evalu ation of the testicles. Both testes are normal in echogenicity and size withou t intratesticular mass. The right testicle measures 4.1 x 2.2 x 3.1 cm and the left testicle measures 3.7 x 2.1 x 2.9 cm. Normal doppler flow bilaterally. Small right epididymal cysts. Both epididymides are otherwise normal in ap pearance. Normal doppler flow bilaterally. No hydroceles or varicoceles. In the left inguinal region, there is a heterogeneously hyperechoic somewhat tubular structure without vascular flow. Impression: Unremarkable ora earance of bilateral testicles. No sonographic evidence of torsion. Hete rogeneous somewhat tubular structure in the left inguinal region most likely r epresents an inguinal hernia, a fat containing inguinal hernia was present on CT from 10/26/17. Signed by: Dr. Hermes Keith MD on 01/29/2018 2:13 PM Dictated By: HERMES KEITH MD 12 Transcribed By: DREW on 01/29/181412 COPY TO: MARISELA PRIETO MD CHEST 2 [id number] 11:40:00 [address] [address] Patient Name: FRANCE SCHAEFER MR #: [id number] : 1940 Age/Sex: 77/M Req #: [id number] Adm Physician: Ordered by: MARISELA PRIETO MD Report #: [id number] Location: OR Room/Bed: Procedure: [id number] DX/CHEST 2 VIEWS Exam Date: Exam Time: 1125 REPORT STATUS: Signed EXAMINATION: PA and lateral views of the chest. COMPARISON: None CLINI ALL HISTORY: Preop bladder surgery DISCUSSION: The lungs are wel l-inflated. No focal airspace consolidation, pleural effusion, or pneumothorax . Postsurgical changes of the mediastinum include mediastinal surgical clips a nd median sternotomy wires. Tortuous thoracic aorta with atherosclerotic calci fication. Normal heart size. No overt pulmonary edema. No acute osseous abn ormalities. Multilevel level degenerative disc changes of the thoracic spine. Round lucent centered calcifications project over the upper abdomen on the lateral radiograph and likely reflect gallstones. IMPRESSION: Postsurg ical changes of the mediastinum without acute cardiopulmonary abnormality.. Signed by: Dr. Pj Greer M.D. on 11/27/2017 11:43 AM D ictated By: PJ GREER MD 1143 COPY TO: MARISELA PRIETO MD CT ABDOMEN/PELVIS [id number] 13:28:00 [address] [address] Patient Name: FRANCE SCHAEFER MR #: [id number] : 1940 Age/Sex: 76/M Req #: [id number] Adm Physician: Ordered by: MARISELA PRIETO MD Report #: [id number] Location: CT Room/Bed: Procedure: [id number] CT/CT ABDOMEN/PELVIS WOW Exam Date : 10/26/17 Exam Time: 1010 REPORT STATUS: Lesly d PROCEDURE: CT ABDOMEN T PELVIS W/WO CONTRAST TECHNIQUE: The abdo men and pelvis were scanned utilizing a multidetector helical scanner from th e diaphragm to the lesser trochanter before and after the IV administration o f 150 cc of Isovue 370 and the oral administration of water. Coronal and sagi ttal multiplanar reformations were obtained. COMPARISON: Patients [facility], DX, ABDOMEN-1VIEW (KUB), 05/03/2011, 7:41. Patients [facility] , US, US RENAL, 05/03/2011, 8:28. INDICATIONS: Microscopic hematuria FINDINGS: LOWER THORAX: 3 mm pulmonary nodule in the left lower lobe (series 3, image 35). Extensive atherosclerotic calcification of the coronary art eries and to a lesser degree aortic valves and thoracic aorta. HEPATOBI LIARY: Normal hepatic size and contour. No focal lesions. No biliary ductal d ilation. Peripherally calcified 1.6 and 1.8 cm gallstones in the dependent po rtion of the bladder fundus. No wall thickening or pericholecystic fluid. S PLEEN: No splenomegaly. PANCREAS: No focal masses or ductal dilatation. ADRENALS: No adrenal nodules. KIDNEYS/URETERS: Bilateral renal vascular calcif ications are noted. 0.2-0.3 cm nonobstructing calculus in the superior to mid left kidney (series 3, image 79). No other renal or any ureteral calculi. N o hydronephrosis or obstruction. Symmetrical renal enhancement. Subcent imeter hypodense lesions in the left kidney (for example series 6, images 76 and 79), which are too small to characterize. The largest lesion measures ora roximately 4-5 mm and is hyperdense on noncontrast exam, suggesting a small h emorrhagic cyst (series 3, image 81). There is good contrast opacificat ion of bilateral renal collecting systems, renal pelves, proximal and mid rig ht ureter and proximal, mid, and most distal left ureter. No filling defect s or strictures. Mild urothelial thickening in the midportion of the left uret er (for example series 6, images 99-105). No focal lesion or ureteral dilatio n is identified. No solid enhancing masses. PELVIC ORGANS/BLADDER : Bladder is unremarkable, without wall thickening, or focal lesions. Multipl e pelvic phleboliths. Multiple metallic clips posterior to the inferior bladd er, which may reflect prior prostatectomy. PERITONEUM / RETROPERITONEUM : No free air or fluid. LYMPH NODES: No lymphadenopathy. VESSELS: Moderate t o marked atherosclerotic calcification of the abdominal aorta, iliac vessels and aortic branches. The celiac trunk, superior and inferior mesenteric, and bilateral renal arteries are patent. Portal, superior mesenteric, and splenic veins are patent. GI TRACT: No bowel dilation or evidence of obstruction. Appendix is identified, and normal in caliber. Descending and sigmoid colon diverticulosis, without diverticulitis. BONES AND SOFT TISSUES: No aggr essive lytic lesions. Degenerative disc changes in the lower thoracic and lum bosacral spine. Facet hypertrophy. L5-S1 and left L4-L5. 1.6 x 1.3 cm and 0 .3 cm focal sclerotic lesions in the right iliac bone (series 3, images 141 a nd 149-150). 1.0 cm focal sclerotic lesion in the right femoral head (series 3 , image 166). 0.5 cm focal sclerotic lesion in the right acetabulum (series 3, image 155). 0.4 cm focal sclerotic lesion in the left iliac bone (series 3, image 152). These lesions have nonaggressive appearance. IMPRESS ION: 1. 0.2-0.3 cm nonobstructing calculus in the superior to mid left kidney. No other renal or any ureteral calculi, hydronephrosis, or obstructio n. 2. Mild urothelial thickening in the midportion of the left ureter, with out focal lesion or ureteral dilation. The rest of the opacified portions of the genitourinary tract are unremarkable. Direct visualization with endoscopy would be helpful for further evaluation. 3. Multiple focal sclerotic lesions in the pelvis and right femur, as described. 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 Musa Dorman M.D. Dictated by: Musa Dorman M.D. on 10/26/2017 at 13:28 Electronically approved by: Musa george M.D. on 10/26/2017 at 13:28 Dictated By: MUSA DORMAN MD 1328 Transcribed By: IN [facility] on 10/26/17 1328 COPY TO: MARISELA PRIETO MD
--- OUTSIDE RECORDS SUMMARY | 2019-08-02 07:53 | XMS REPORT | Summary of Care ---
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 Role Phone ACE STERN, LATESHA ARCINIEGA Unavailable Unavailable Functional Status Name Dates Details Functional status health issues are not documented Status: Name Dates Details Cognitive status health issues are not d ocumented Status: Problems Name Dates Details Active medical history not documented Status: Medications Name Dates Details Medications not documented Allergies and Adverse Reactions Name Dates Details Allergy history not documented Status: Procedures Procedure Dates Details Procedures not documented Immunization Name Dates Details Immunizations not documented Social History Name Dates Details Unknown if ever smoked Vital Signs Date Test Result Details No Known Vitals to report Results Date Description Value Details Results not documented Plan of Care Name Dates Details Planned Observations Planned Goals not documented Instructions Name Dates Details Instructions not documented Encounters Appointment; FRANTZ SANTOS Encounter Diagnosis: Problem not documented On: 18-Jul-2017 15:00
[2019-08-02 09:01] LABS: INR 0.92; PROTHROMBIN TIME 12.9 seconds (11.9-14.5)
[2019-08-02 09:02] LABS: PARTIAL THROMBOPLASTIN TIME 34.3 seconds (23.8-35.5)
[2019-08-02 11:28] VITALS: BP 130/91
--- NOTE | 2019-08-05 02:39 | Operative Report ---
DATE OF PROCEDURE: 08/02/2019 SURGEON: Sacha Watkins MD PREOPERATIVE DIAGNOSES: 1. Refractory urge incontinence. 2. Urinary tract infections. POSTOPERATIVE DIAGNOSES: 1. Refractory urge incontinence. 2. Urinary tract infections. OPERATIONS PERFORMED: 1. Cystourethroscopy with intravesical injection of Botox (separate procedure performed for the urge incontinence). 2. Cystourethroscopy with bilateral ureteral catheterization and retrograde ureteropyelography (separate procedure performed for the urinary tract infections). 3. Interpretation of retrograde ureteropyelography. 4. Supervision of fluoroscopy, no radiologist present. ANESTHESIA: General. COMPLICATIONS: None. CLINICAL SUMMARY: Wilmer Ray is a 78-year-old man with the above preop diagnoses. He was brought for the above procedures. He is aware of the risks of bleeding, infection, injury to adjacent structures, need for additional procedures and elected to proceed. OPERATIVE PROCEDURE IN DETAIL: Informed consent was verified. Wilmer Ray was properly identified, taken to the operating room, placed on the cystoscopy table in supine position. Anesthesia was uneventfully begun. The patient was then carefully and gently repositioned in dorsal lithotomy position with all pressure points well padded. His genitalia were prepared and draped in usual fashion. The cystoscope sheath with the visual obturator in place was atraumatically inserted into the patient's urethra. It was guided unremarkable urethra through the normal sphincteric region, through the urethrovesical anastomosis, which was wide open into the patient's bladder. A grade 2 trabeculations were noted, but there were no tumors, no stones, and no suspicious lesions, normally positioned configured ureteral orifices were identified. An 8-Irish catheter was used to cannulate each ureter and retrograde ureteropyelography was performed. Interpretation of retrograde ureteropyelography contrast was instilled in retrograde fashion bilaterally. There were no tumors, no stones, no diverticula. Unobstructed drainage was observed bilaterally fluoroscopically. The patient's bladder was drained. 100 units of Botox were dissolved in 10 mL of sterile saline. They were injected in 0.5 mL aliquots in an even distribution throughout the supratrigonal bladder. The patient's bladder was drained. Cystoscope was withdrawn. A belladonna and opium suppository were placed. The patient was uneventfully reversed from anesthesia and taken to recovery room in stable condition. There were no complications to the procedure. The patient tolerated the procedure well. Of note, is that there appeared to be gallstones in the patient's retrograde pyelograms. MD YAZAN Hough/ALYSSA /[id number]
== END | disposition home or self-care (01) ==
LOC: OR 07:50
PROVIDERS: ATTEND Urology
DX: N39.46 Mixed incontinence (principal); N39.0 Urinary tract infection, site not specified; R35.1 Nocturia; N32.89 Other specified disorders of bladder; E11.22 Type 2 diabetes mellitus with diabetic chronic kidney disease; I12.9 Hypertensive chronic kidney disease with stage 1 through stage 4 chronic kidney disease, or unspecified chronic kidney disease; N18.9 Chronic kidney disease, unspecified; R81 Glycosuria; N43.40 Spermatocele of epididymis, unspecified; N43.3 Hydrocele, unspecified; N45.3 Epididymo-orchitis; N52.9 Male erectile dysfunction, unspecified; N50.0 Atrophy of testis; E29.1 Testicular hypofunction; Z87.442 Personal history of urinary calculi; I25.810 Atherosclerosis of coronary artery bypass graft(s) without angina pectoris; I48.91 Unspecified atrial fibrillation; E03.9 Hypothyroidism, unspecified; Z01.810 Encounter for preprocedural cardiovascular examination; Z01.812 Encounter for preprocedural laboratory examination; Z01.818 Encounter for other preprocedural examination; Z11.59 Encounter for screening for other viral diseases; Z79.01 Long term (current) use of anticoagulants; Z79.84 Long term (current) use of oral hypoglycemic drugs; Z95.1 Presence of aortocoronary bypass graft; Z85.46 Personal history of malignant neoplasm of prostate
CPT/HCPCS: 36415 ×2; 52005; 52287; 71046; 74420; 80048; 82948; 85025; 85610; 85730; 87635; 93005; C1758; C1769; J0587; J0696; J2001; J2405; J2704; J3010; Q9967

== ENCOUNTER → 2020-06-08 | Outpatient (CLI) | payer MEDICARE ==
[~2020-06-08] MED LIST changes: -B&O 60MG R/S 60 MG SUPP PR ONE; -BOTULINUM TOXIN TYPE A 100 UNIT VIAL IM ONE; -CEFTRIAXONE SOD 1 GM/NS 50 ML 50 ML IV ONE; -FENTANYL CITRATE/PF 100MCG/2 ML INJ ONE; -IOPAMIDOL 300MG/ML 50ML INFUS..BTL IV ONE; -LIDOCAINE HCL 2% LOCAL INJ 5 ML SDV VIAL INJ ONE; -ONDANSETRON HCL INJ 2MG/ML 2ML 2 MG/ML VIAL ONE; -PROPOFOL IV EMULSION 10 MG/ML 20 ML VIAL ONE; -SEVOFLURANE INHAL SOLN 250 ML PEN BTL ONE
== END ==
LOC: RAD 12:33
PROVIDERS: ATTEND Urology
DX: N20.0 Calculus of kidney (principal)
CPT/HCPCS: 74018